=== PATIENT | female | born 1965 | race Caucasian/White ===

== ENCOUNTER 2025-01-20 12:19 | Outpatient (AMB) | payer OTHER, SELFPAY ==
--- NOTE | 2025-01-20 12:26 | A.OFFPC_ITS ---
Vital Signs 01/20/25 12:35 01/20/25 13:04 Height 5 ft 6 in Weight 191 lb 4 oz BMI 30.9 BP 102/68 Blood Pressure Location Lt brachial Position Sitting Respiration 12 Pulse 77 70 Pulse Source Pulse Oximeter Pulse Oximeter Temp 97.6 F Temp Source Oral Pulse Oximetry (%) 89 L 96 Oxygen Delivery Method Room Air Room Air Intake Visit Reasons: est care Intake Note: New patient to establish care Stock Hanger Required: No Allergies No Known Allergies Allergy (Verified 01/20/25 12:51) Medication List - Last Reconciled 01/20/25 by Sonia Enriquez, ART PROFESSOR- amlodipine-valsartan 5-160 mg 1 tab PO DAILY nebivolol 5 mg PO DAILY Tobacco use date assessed: 01/20/25 Dental Screening Dental Screen Date: 01/20/25 Did you have a dental visit in the last 12 months?: Yes Did you have a dental problem in the last 6 months where you did not have access to dental care?: No Was dental information given to patient?: Patient has dentist HPI HPI Comments History of Present Illness Details 59 y/o F with HTN, Iron def anemia, hx o f PE while in [place], IBD Surgery: sinus surgery Social: 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 Voice is hoarse. Productive cough. Has not used any medicine at home to help. Admits getting sick since coming back to [place] 8 mo ago. PE bilat, while living in [place]. Hospitalized for 1 month and d/c on warfarin. Told she did not need any further f/u HTN on meds, bp at goal. IBD w/ iron def anemia; active w/ GI. Having blood and mucous. Reports labs done recently at . Exam Awake alert NAD Sclera and conjunctiva clear bilat Nares clear drainage, turbinates within normal limits, no sinus tenderness with palpation bilat TM intact and clear bilat MMM, pharynx WNL + PND RRR LS CTAB No edemaBLE Plan: Med refills sent Ok to try anti histamine OTC or Mucinex to help w/ cough Flonase ok, too Records requested, will review once rec'd RTO 3 months to cont to est care after i review records. Total time spent caring for the patient today was 46 minutes. This includes time spent before the visit reviewing the chart, time spent during the visit, and time spent after the visit on documentation, reviewing laboratory results, diagnostic imaging, medications, performing a medically necessary evaluation, counseling on diagnoses, care coordination, ordering appropriate tests, ordering appropriate medications, review of tests performed by other providers, reporting test results with the patient, communication with other healthcare providers. [facility] Medical History (Updated 01/20/25 @ 15:30 by VICKI Marcus) IBS (irritable bowel syndrome) Pulmonary embolism (~2017) Surgical History (Updated 01/20/25 @ 12:57 by VICKI Marcus) History of colonoscopy (~2024) Family History (Updated 01/20/25 @ 13:22 by Sunil Acosta MA) Mother Asthma Father HTN (hypertension) Diabetes Maternal Grandmother HTN (hypertension) Paternal Grandmother Diabetes Maternal Grandfather Diabetes Social History (Updated 01/20/25 @ 12:34 by Sunil Acosta MA) Household Members: Spouse and Children Both parents involved: No Caregiver staying overnight: No Housing: House Are you a primary health care law specialist to a significant other at home: No Do you presently have visiting nurse or other home services: No 75 years or older and lives alone: No Alcohol intake: never Patient Tobacco Use Status: Never used Tobacco e-Cigarette/Vaping Use: Never Used Second Hand Smoke Exposure: No service: No Current occupational status: unemployed Cognitive needs: No Hearing needs: No Vision needs: Yes (wear glasses) Questionnaire PHQ-9 Over the last 2 weeks, how often have you been bothered by any of the following problems? 1. Little interest or pleasure in doing things: not at all 2. Feeling down, depressed, or hopeless: not at all 3. Trouble falling or staying asleep, or sleeping too much: several days 4. Feeling tired or having little energy: several days 5. Poor appetite or overeating: not at all 6. Feeling bad about yourself - or that you are a failure or have let yourself or your family down: not at all 7. Trouble concentrating on things, such as reading the newspaper or watching television: not at all 8. Moving or speaking so slowly that other people could have noticed. Or the opposite - being so fidgety or restless that you have been moving around a lot more than usual: not at all 9. Thoughts that you would be better off or of hurting yourself in some way: not at all Total score: 2 Depression Screening Interpretation: Negative Depression Screening Done: Yes 61502 - PHQ-9 Billing: Yes Source: Developed by Drs. Donald Islas, India Santiago, Joseluis Breaux and colleagues, with an educational jennifer from [employer]. Thrive Questionnaire Date Thrive assessed: 01/20/25 I am a: Patient What is your living situation today?: I have a steady place to live Within the past 12 months, did the food you bought not last and you didn't have the money to get more?: Never true Within the past 12 months, did you worry whether your food would run out before you got money to buy more?: Never true Do you have trouble paying for medicines?: No Do you have trouble getting transportation to medical appointments?: No Do you have trouble paying your heating and electricity bill?: No Do you have trouble taking care of your child, family member or friend?: No Do you have trouble with day-to-day activities such as bathing, preparing meals, shopping, managing finances, etc.?: No Are you currently unemployed and looking for a job?: No Are you interested in more education?: No Please select the resources that you would like help with: None Currently or been in a relationship where the following occur: No concerns reported THRIVE Score: 0 AUDIT C Alcohol Use Questionnaire (AUDIT-C) 1. How often do you have a drink containing alcohol?: Never 3. How often do you have six or more drinks on one occasion?: Never Total Score: 0 Score Reviewed/Action Taken: Yes KATE-7 AMB Questionnaire KATE-7 Date KATE - 7 assessed: 01/20/25 Feeling nervous, anxious, or on edge: 1 = Several days Not being able to stop or control worryin = Not at all Worrying too much about different things: 0 = Not at all Trouble relaxin = Not at all Being so restless that it is hard to sit still: 0 = Not at all Becoming easily annoyed or irritable: 0 = Not at all Feeling afraid as if something awful might happen: 0 = Not at all Total KATE-7 score (0-4 normal; 5-9 mild; 10-14 moderate; 15-21 severe): 1 Source: Developed by Drs. Donald Islas, India Santiago, Joseluis Breaux and colleagues, with an educational jennifer from [employer]. KATE-7 Assessment Billing KATE-7 Assessment Tool: KATE-7 Assessment 45349 Physical exam (Primary Care) Vital Signs: Last Vital Signs Temp 97.6 F 01/20/25 12:35 Pulse 70 01/20/25 13:04 Resp 12 01/20/25 12:35 BP 102/68 01/20/25 12:35 Pulse Ox 96 01/20/25 13:04 Oxygen Delivery Method Room Air 01/20/25 13:04 BMI result Body Mass Index 30.9 BMI Assessment/Plan discussion: High BMI High, discussed plan: lifestyle Tobacco/Smoking Status: Tobacco use Status Tobacco use date assessed 01/20/25 01/20/25 12:37 Patient Tobacco Use Status Never used Tobacco 01/20/25 12:37 e-Cigarette/Vaping Use Never Used 01/20/25 12:37 PHQ-9: PHQ-9 Score PHQ-9: Total score 2 01/20/25 15:26 Depression Screening Interpretation: Negative Thrive Assessment: Date of Thrive Assessment Date Thrive assessed 01/20/25 01/20/25 12:30 Currently or been in a relationship where the following occur: No concerns reported Coding Level of Care Code New Pt Level 4 (18158) Complex EM visit Add On G2211 Diagnoses Encounter to establish care Z76.89 History of pulmonary embolism Z86.711 Primary hypertension I10 Hypertension type: primary hypertension Iron deficiency anemia due to chronic blood loss D50.0 Iron deficiency anemia type: chronic blood loss Obesity (BMI 30-39.9) E66.9 Irritable bowel syndrome with both constipation and diarrhea K58.2 Irritable bowel syndrome type: with both diarrhea and constipation Viral URI with cough J06.9 Additional Codes KATE-7 Assessment Billing - KATE-7 Assessment Tool: KATE-7 Assessment 42761 ([id number]) PHQ-9 - 11931 - PHQ-9 Billing: Yes ([id number]) Assessment & Plan Assessment & Plan (1) Encounter to establish care: Code(s): Z76.89 - Persons encountering health services in other specified circumstances Category: Medical (2) History of pulmonary embolism: Code(s): Z86.711 - Personal history of pulmonary embolism Category: Medical (3) HTN (hypertension): Code(s): I10 - Essential (primary) hypertension Category: Medical Qualifiers: Hypertension type: primary hypertension Qualified Code(s): I10 - Essential (primary) hypertension (4) Iron deficiency anemia: Code(s): D50.9 - Iron deficiency anemia, unspecified Category: Medical Qualifiers: Iron deficiency anemia type: chronic blood loss Qualified Code(s): D 50.0 - Iron deficiency anemia secondary to blood loss (chronic) (5) Obesity (BMI 30-39.9): Code(s): E66.9 - Obesity, unspecified Category: Medical (6) IBS (irritable bowel syndrome): Code(s): K58.9 - Irritable bowel syndrome, unspecified Category: Medical Qualifiers: Irritable bowel syndrome type: with both diarrhea and constipation Qualified Code(s): K58.2 - Mixed irritable bowel syndrome (7) Viral URI with cough: Code(s): J06.9 - Acute upper respiratory infection, unspecified Plan . Medications: New nebivolol 5 mg PO DAILY 90 tabs 2RF ferrous sulfate 325 mg PO DAILY ascorbic acid (vitamin C) mg PO amlodipine-valsartan 5-160 mg 1 tab PO DAILY 90 tabs 2RF
[2025-01-20 12:35] VITALS: BP 102/68; PULSE 77; RESP 12; TEMP 36.4; O2SAT 89; BMI 30.9
[2025-01-20 13:04] VITALS: PULSE 70; O2SAT 96
--- OUTSIDE RECORDS SUMMARY | 2025-01-20 14:36 | XMS_ITS | Clinical Summary ---
Author Organization [place] [address] [address] [facility]ly [facility] Address [address] [facility] [place] [address] Phone Care Team Providers Care Process Line Operator Name Role Phone Physician, No Pcp Primary Care Provider Unavaila ble Allergies No known active allergies Medications nebivoloL (Bystolic) 5 mg tablet Take 1 tablet (5 mg total) by mouth 1 (one) time each day. 30 each 12/22/2024 5 Active amLODIPine-valsa rtan (Exforge) 5-160 mg per tablet Take 1 tablet by mouth 1 (one) time each day. 30 tablet 12/22/2024 5 Active ferrous sulfate 325 mg (65 mg iron) EC tablet Take 1 tablet (325 mg total) by mouth 1 (one) time each day with breakfast. Do not crush, chew, or split. 30 each 1 12/24/2024 6 Active Encounters Date Type Department Care Team Description 12/31/2024 Telephone Gastroenterology - [address] [phone] Lyubov Baez [place] 12/25/2024 2:40 PM EDT Consult Gastroenterology - [address] [phone] Raquel Jennings, FIRE HYDRANT OPERATOR Other iron deficiency anemia (Primary Dx); Diarrhea, unspecified type; Rectal bleeding 12/24/2024 Telephone Walk-In Clinic [facility] [address] [place] [phone] Jose Goddard PA Results 12/23/2024 1:30 PM EDT Clinic Lab Collection Walk-In Clinic - [address] [phone] Diarrhea, unspecified type; History of hypertension; Bright red blood per rectum 12/22/2024 4:15 PM EDT Office Visit Walk-In Clinic - [address] [phone] Jose Goddard PA Diarrhea, unspecified type (Primary Dx); History of hypertension; Bright red blood per rectum from Last 3 Months Social History Tobacco Use Types Packs/Day Years Used Date Smoking Tobacco: Never Assessed Comments Unknown Sex and Gender Information Value Date Recorded Sex Assigned at Female 12/24/2024 10:19 AM EDT Legal Sex Female 10:16 AM EDT Gender Identity Female 12/24/2024 10:19 AM EDT Sexual Orientation Straight 12/24/2024 10 :19 AM EDT Last Filed Vital Signs Vital Sign Reading Time Taken Comments Blood Pressure 118/78 12/22/2024 3:51 PM EDT Pulse 119 12/22/2024 3:51 PM EDT Temperature - - Respiratory Rate - - Oxygen Saturation 98% 12/22/2024 3:51 PM EDT Inhaled Oxygen Concentration - - Weight 83.9 kg (185 lb) 12/25/2024 2:40 PM EDT Height 167.6 cm (5' 6 ) 12/25/2024 2:40 PM EDT Body Mass Index 29.86 12/25/2024 2:40 PM EDT Plan of Treatment Upcoming Encounters Date Type Department Care Team (Late st Contact Info) Description 03/03/2025 9:00 AM EDT Appointment [facility] Endoscopy [address] [place] [phone] Tenzin Paula MD [address] [phone] 03/11/2025 9:20 AM EDT Office Visit Gastroenterology - 299 [facility] [address] [phone] Raquel Jennings, FIRE HYDRANT OPERATOR 299 [facility] [address] [place] [address] Health Maintenance Due Date Last Done Comments Breast Cancer Screening 1964 DTaP,Tdap,and Td Vaccines (1 - Tdap) 1983 Cervical Cancer Screening: P ap Smear 1985 Pneumococcal Vaccine: 50+ Ye ars (1 of 1 - PCV) 2014 Zoster Vaccines (1 of 2) 2014 Colorectal Cancer Screening: Colonoscopy 12/22/2024 Depression Screening 12/22/2024 HIV Screening 12/22/2024 Hepatitis C Screening 12/22/2024 Social Influencers of Health Screening 12/22/2024 RSV Immunization Adult Patie nts (1 - 1-dose 75+ series) 2039 COVID-19 Vaccine Completed 07/25/2024 Influenza Vaccine Completed 07/25/2024 HIB Vaccines Aged Out No longer eligi ble based on patient's age to complete this topic HPV Vaccines Aged Out No longer eligi ble based on patient's age to complete this topic Hepatitis A Vaccines Aged Out No long er eligible based on patient's age to complete this topic Hepatitis B Vaccines Aged Out No long er eligible based on patient's age to complete this topic IPV Vaccines Aged Out No longer eligi ble based on patient's age to complete this topic MMR Vaccines Aged Out No longer eligi ble based on patient's age to complete this topic Meningococcal ACWY Vaccine Aged Out N o longer eligible based on patient's age to complete this topic Meningococcal B Vaccine Aged Out No l onger eligible based on patient's age to complete this topic Pneumococcal Vaccine: Pediat rics (0 to 5 Years) and At-Risk Patients (6 to 64 Years) Aged Out No longer eligi ble based on patient's age to complete this topic RSV Immunization Patients Un noel 20 months Aged Out No longer eligible b ased on patient's age to complete this topic Varicella Vaccines Aged Out No longer eligible based on patient's age to complete this topic Procedures Procedure Name Priority Date/Time Associated Diagnosis Comments FERRITIN Routine 12/29/2024 7:50 AM EDT Diarrhea, unspecified type Iron refractory iron deficiency anemia IRON AND TIBC Routine 12/29/2024 7:50 AM EDT Diarrhea, unspecified type Iron refractory iron deficiency anemia C-REACTIVE PROTEIN Routine 12/29/2024 7: 50 AM EDT Diarrhea, unspecified type Other iron deficiency anemia Rectal bleeding VITAMIN B12 AND FOLATE Routine 7:50 AM EDT Diarrhea, unspecified type Other iron deficiency anemia Rectal bleeding CALPROTECTIN, STOOL Routine 12/29/2024 7 :49 AM EDT Diarrhea, unspecified type Other iron deficiency anemia Rectal bleeding CLOSTRIDIUM DIFFICILE TOXIN Routine 12/29/2024 7:49 AM EDT Diarrhea, unspecified type Other iron deficiency anemia Rectal bleeding GASTROINTESTINAL PATHOGENS BY PCR Routine 12/29/2024 7:49 AM EDT Diarrhea, unspecified type Other iron deficiency anemia Rectal bleeding CBC WITH AUTO DIFFERENTIAL Routine 12/25/2024 3:26 PM EDT Diarrhea, unspecified type SEDIMENTATION RATE Routine 12/25/2024 3 :26 PM EDT Diarrhea, unspecified type COMPREHENSIVE METABOLIC PANEL Routine 12/25/2024 3:26 PM EDT Diarrhea, unspecified type CBC AND DIFFERENTIAL Routine 12/25/2024 3:26 PM EDT Diarrhea, unspecified type CBC WITH AUTO DIFFERENTIAL Routine 12/23/2024 1:34 PM EDT Diarrhea, unspecified type History of hypertension Bright red blood per rectum SEDIMENTATION RATE Routine 12/23/2024 1: 34 PM EDT Diarrhea, unspecified type History of hypertension Bright red blood per rectum CBC AND DIFFERENTIAL Routine 12/23/2024 1:34 PM EDT Diarrhea, unspecified type History of hypertension Bright red blood per rectum COMPREHENSIVE METABOLIC PANEL Routine 12/23/2024 1:34 PM EDT Diarrhea, unspecified type History of hypertension Bright red blood per rectum from Last 3 Months Results * (ABNORMAL) Vitamin B12 and folate (12/29/2024 7:50 AM EDT) [facility] Vitamin B-12 243(L) 250 - 900 pcg/mL LAB CHEMISTRY METHOD 12/29/2024 11:34 AM EDT [facility] Folate 8.4 2.8 - 17.0 ng/ml LAB CHEMISTRY METHOD 12/29/2024 11:34 AM EDT [facility] Blood Venous blood specimen / Unknown Venipuncture / Unknown 12/29/2024 7:50 AM EDT 12/29/2024 10:19 AM EDT Raquel Jennings NP LAB BLOOD ORDERABLES Final Re sult [facility] [address] [place] [address], [place] [phone] * (ABNORMAL) Iron and TIBC (12/29/2024 7:50 AM EDT) [facility] Iron 21(L) 40 - 150 mcg/dL LAB CHEMISTRY METHOD 12/29/2024 11:34 AM EDT [facility] TIBC 384 250 - 450 mcg/dL LAB CHEMISTRY METHOD 12/29/2024 11:34 AM EDT [facility] Iron Saturation 5(L) 15 - 50 % LAB CHEMISTRY METHOD 12/29/2024 11:34 AM EDT [facility] Blood Venous blood specimen / Unknown Venipuncture / Unknown 12/29/2024 7:50 AM EDT 12/29/2024 10:19 AM EDT Raquel Jennings NP LAB BLOOD ORDERABLES Final Re sult [facility] [address] [place] [address], [place] [phone] * (ABNORMAL) C-reactive protein (12/29/2024 7:50 AM EDT) [facility] C-Reactive Protein 1.37(H) <=0.50 mg/dL LAB CHEMISTRY METHOD 12/29/2024 11:10 AM EDT [facility] Blood Venous blood specimen / Unknown Venipuncture / Unknown 12/29/2024 7:50 AM EDT 12/29/2024 10:19 AM EDT us Raquel Jennings NP LAB BLOOD ORDERABLES Final Re sult Performing Organization Address City/[facility] Co de Phone Number [facility] [address] [place] [address], [place] [phone] * Ferritin (12/29/2024 7:50 AM EDT) [facility] Ferritin 8 8 - 252 ng/mL LAB CHEMISTRY METHOD 12/29/2024 11:35 AM EDT [facility] Blood Venous blood specimen / Unknown Venipuncture / Unknown 12/29/2024 7:50 AM EDT 12/29/2024 10:19 AM EDT us Raquel Jennings NP LAB BLOOD ORDERABLES Final Re sult [facility] [address] [place] [address], [place] [phone] * Gastrointestinal pathogens molecular study (12/29/2024 7:49 AM EDT) [facility] Campylobacter Detection by PCR Not Detected Not Detected LAB MICROBIOLOGY METHOD 5 11:58 AM EDT [facility] Plesiomonas shigelloides Detection by PCR Not Detected Not Detected LAB MICROBIOLOGY METHOD 11:58 AM EDT [facility] Salmonella Detection by PCR Not Detected Not Detected LAB MICROBIOLOGY METHOD 5 11:58 AM EDT [facility] Vibrio Detection by PCR Not Detected Not Detected LAB MICROBIOLOGY METHOD 5 11:58 AM EDT [facility] Vibrio cholerae Detection by PCR Not Detected Not Detected LAB MICROBIOLOGY METHOD 5 11:58 AM EDT [facility] Yersinia enterocolitica Detection by PCR Not Detected Not Detected LAB MICROBIOLOGY METHOD 5 11:58 AM EDT [facility] Enteroaggregative E coli EAEC Detection by PCR Not Detected Not Detected LAB MICROBIOLOGY METHOD 5 11:58 AM EDT [facility] Enteropathogenic E coli EPEC Detection Not Detected Not Detected LAB MICROBIOLOGY METHOD 5 11:58 AM EDT [facility] Enterotoxigenic E coli ETEC LTST Detection Not Detected Not Detected LAB MICROBIOLOGY METHOD 5 11:58 AM EDT [facility] Shiga-like toxin producing E coli STEC STX1 STX2 Det Not Detected Not Detected LAB MICROBIOLOGY METHOD 5 11:58 AM EDT [facility] Shigella Enteroinvasive E coli EIEC Detection Not Detected Not Detected LAB MICROBIOLOGY METHOD 5 11:58 AM EDT [facility] Cryptosporidium Detection by PCR Not Detected Not Detected LAB MICROBIOLOGY METHOD 5 11:58 AM EDT [facility] Cyclospora cayetanensis Detection by PCR Not Detected Not Detected LAB MICROBIOLOGY METHOD 5 11:58 AM EDT [facility] Entamoeba histolytica Detection by PCR Not Detected Not Detected LAB MICROBIOLOGY METHOD 5 11:58 AM EDT [facility] Giardia lamblia Detection by PCR Not Detected Not Detected LAB MICROBIOLOGY METHOD 5 11:58 AM EDT [facility] Adenovirus F 40 41 Detection by PCR Not Detected Not Detected LAB MICROBIOLOGY METHOD 5 11:58 AM EDT [facility] Astrovirus Detection by PCR Not Detected Not Detected LAB MICROBIOLOGY METHOD 5 11:58 AM EDT [facility] Norovirus GI GII Detection by PCR Not Detected Not Detected LAB MICROBIOLOGY METHOD 5 11:58 AM EDT [facility] Sapovirus Detection by PCR Not Detected Not Detected LAB MICROBIOLOGY METHOD 5 11:58 AM EDT [facility] Rotavirus A Detection by PCR Not Detected Not Detected LAB MICROBIOLOGY METHOD 5 11:58 AM EDT [facility] Stool Rectum structure / Unknown Non-blood Collection / Unknown 12/29/2024 7:49 AM EDT 12/29/2024 10:18 AM EDT Narrative [facility] - 12/29/2024 11:58 AM EDT PCR testing is much more sensitive than traditional techniques and allows for the detection of low numbers of stool pathogens. The clinical correlation of PCR results with the need for treatment and clinical outcomes has not been established. Therefore the results of PCR testing for stool pathogens must be taken into clinical context when making treatment decisions. This is a diagnostic test only, repeat testing for cure is not advised. You may consider infectious disease consult for additional guidance. ??Testing Performed by MULT[employer] PCR Raquel Jennings NP LAB MICROBIOLOGY - GENERAL OR DERABLES Final Result [facility] [address] [place] [address], * (ABNORMAL) Calprotectin, stool (12/29/2024 7:49 AM EDT) Calprotectin, Fecal 65.2(H) <50 mcg/g 12/31/2024 1:25 PM EDT [facility] Comment: <50 mcg/g ?Normal 50 - 120 mcg/g ?? Borderline >120 mcg/g ? Abnormal Borderline results suggest repeat testing in 4 to 6 weeks. Test performed at [facility], [address] , [place], [place] ??[address] ? [phone] Danika Harris MD, PhD - Tool Design Checker Stool Rectum structure / Unknown Non-blood Collection / Unknown 12/29/2024 7:49 AM EDT 12/29/2024 10:18 AM EDT Raquel Jennings NP LAB BODY FLUIDS AND STOOLS OR DERABLES Edited Result - Final [facility] [address] [place] [address] * Clostridium difficile toxin (12/29/2024 7:49 AM EDT) Pathologist [facility] Clostridium difficile GDH Antigen Negative Negative 12/29/2024 11:06 AM EDT [facility] C difficile Toxins A+B, EIA Negative Negative 12/29/2024 11:06 AM EDT [facility] Comment:NEGATIVE FOR TOXIN P RODUCING CLOSTRIDIOIDES DIFFICILE, NO ADDITIONAL TESTING IS NECESSARY. Stool Rectum structure / Unknown Non-blood Collection / Unknown 12/29/2024 7:49 AM EDT 12/29/2024 10:18 AM EDT Raquel Jennings NP LAB MICROBIOLOGY - GENERAL OR DERABLES Final Result [facility] [address] [place] [address], [place] [phone] * (ABNORMAL) CBC auto differential (12/25/2024 3:26 PM EDT) Only the most recent of2 resultswithin the time period is included. WBC 7.8 4.8 - 10.8 K/mcL LAB HEMETOLOGY METHOD 12/25/2024 3:54 PM EDT [facility] RBC 5.00(H) 3.80 - 4.80 M/mcL LAB HEMETOLOGY METHOD [facility]24 [facility] Hemoglobin 9.8(L) 11.5 - 16.0 g/dL LAB HEMETOLOGY METHOD 12/25/2024 3:54 PM T [facility] Hematocrit 34.9(L) 35.0 - 47.0 % LAB HEMETOLOGY METHOD 12/25/2024 3:54 PM EDT [facility] MCV 70.5(L) 79.0 - 98.0 FL LAB HEMETOLOGY METHOD 12/25/2024 3:54 PM [facility] MCH 19.8(L) 27.0 - 32.0 pcg LAB HEMETOLOGY METHOD 12/25/2024 3:54 PM [facility] MCHC 28.1(L) 32.0 - 37.0 g/dL LAB HEMETOLOGY METHOD 12/25/2024 3:54 PM [facility] RDW 19.4(H) 11.0 - 15.0 % LAB HEMETOLOGY METHOD 12/25/2024 3:54 PM [facility] Platelets 318 130 - 400 K/mcL LAB HEMETOLOGY METHOD 12/25/2024 3:54 [facility] MPV 10.1 7.0 - 11.0 FL LAB HEMETOLOGY METHOD 12/25/2024 3:54 [facility] NRBC 0.0 <1.0 % LAB HEMETOLOGY METHOD 12/25/2024 3:54 PM [facility] NRBC Absolute 0.00 <0.10 K/mcL LAB HEMETOLOGY METHOD 12/25/2024 3:54 [facility] Neutrophils Relative 80.1 % LAB HEMETOLOGY METHOD 12/25/2024 3:54 PM EDT [facility] Lymphocytes Relative 10.9 % LAB HEMETOLOGY METHOD 12/25/2024 3:54 PM [facility] Monocytes Relative 7.9 % LAB HEMETOLOGY METHOD 12/25/2024 3:54 PM [facility] Eosinophils Relative 0.4 % LAB HEMETOLOGY METHOD 12/25/2024 3:54 PM T [facility] Basophils Relative 0.4 % LAB HEMETOLOGY METHOD 12/25/2024 3:54 PM [facility] Immature Granulocytes Relative 0.3 % LAB HEMETOLOGY METHOD 12/25/2024 3:54 PM [facility] Neutrophils Absolute 6.28 1.50 - 7.00 K/mcL LAB HEMETOLOGY METHOD 12/25/2024 3:54 PM [facility] Lymphocytes Absolute 0.85(L) 1.00 - 5.00 K/mcL LAB HEMETOLOGY METHOD 12/25/2024 3:54 PM [facility] Monocytes Absolute 0.62 0.20 - 1.00 K/mcL LAB HEMETOLOGY METHOD 12/25/2024 3:54 PM [facility] Eosinophils Absolute 0.03 0.00 - 0.50 K/mcL LAB HEMETOLOGY METHOD 12/25/2024 3:54 PM T [facility] Basophils Absolute 0.03 0.00 - 0.20 K/mcL LAB HEMETOLOGY METHOD 12/25/2024 3:54 PM [facility] Immature Granulocytes Absolute 0.02 0.00 - 0.03 K/mcL LAB HEMETOLOGY METHOD 12/25/2024 3:54 PM [facility] Blood Venous blood specimen / Unknown Venipuncture / Unknown 12/25/2024 3:26 PM EDT 12/25/2024 3:42 PM EDT Jose YOUNGER LAB BLOOD ORDERABLES Final Result Performing Organization Address [facility]/ZIP Co de Phone Number [facility] [address] [place] [address], [place] [phone] * (ABNORMAL) Sedimentation rate (12/25/2024 3:26 PM EDT) Only the most recent of2 resultswithin the time period is included. Pathologist [facility] Sed Rate 47(H) 0 - 30 mm/hr LAB HEMETOLOGY METHOD 12/25/2024 4:03 PM EDT [facility] Blood Venous blood specimen / Unknown Venipuncture / Unknown 12/25/2024 3:26 PM EDT 12/25/2024 3:42 PM EDT Jose YOUNGER LAB BLOOD ORDERABLES Final Result Performing Organization Address [facility] de Phone Number [facility] [address] [place] [address], [place] [phone] * (ABNORMAL) Comprehensive metabolic panel (12/25/2024 3:26 PM EDT) Only the most recent of2 resultswithin the time period is included. Sodium 139 133 - 145 mmol/L LAB CHEMISTRY METHOD 12/25/2024 4:21 PM EDT [facility] Potassium 3.8 3.5 - 5.5 mmol/L LAB CHEMISTRY METHOD 12/25/2024 4:21 PM EDT [facility] Chloride 105 96 - 110 mmol/L LAB CHEMISTRY METHOD 12/25/2024 4:21 PM EDT [facility] CO2 28 21 - 32 mmol/L LAB CHEMISTRY METHOD 12/25/2024 4:21 PM EDT [facility] Anion Gap 6 3 - 11 LAB CHEMISTRY METHOD 12/25/2024 4:21 PM [facility] Glucose 119(H) 70 - 100 mg/dL LAB CHEMISTRY METHOD 12/25/2024 4:21 PM [facility] BUN 8 5 - 25 mg/dL LAB CHEMISTRY METHOD 12/25/2024 4:21 PM [facility] Creatinine 0.87 0.50 - 1.10 mg/dL LAB CHEMISTRY METHOD 12/25/2024 4:21 PM [facility] eGFR 76 >=60 mL/min/1. 73m2 LAB CHEMISTRY METHOD 12/25/2024 4:21 PM [facility] Comment:Calculation based on the??Chronic Kidney Disease Epidemiology Collaboration (CKD-EPI) equation refit??without adjustment for race. BUN/Creatinine Ratio 9.2 LAB CHEMISTRY METHOD 12/25/2024 4:21 PM [facility] Calcium 10.2 8.5 - 10.5 mg/dL LAB CHEMISTRY METHOD 12/25/2024 4:21 PM [facility] AST (SGOT) 13 10 - 42 unit/L LAB CHEMISTRY METHOD 12/25/2024 4:21 PM [facility] ALT (SGPT) 18 10 - 60 unit/L LAB CHEMISTRY METHOD 12/25/2024 4:21 PM [facility] Alkaline Phosphatase 90 42 - 121 unit/L LAB CHEMISTRY METHOD 12/25/2024 4:21 PM [facility] Total Protein 8.4(H) 6.0 - 8.0 g/dL LAB CHEMISTRY METHOD 12/25/2024 4:21 PM [facility] Albumin 4.2 3.2 - 5.0 g/dL LAB CHEMISTRY METHOD 12/25/2024 4:21 PM [facility] Total Bilirubin 0.7 0.0 - 1.4 mg/dL LAB CHEMISTRY METHOD 12/25/2024 4:21 PM [facility] Blood Venous blood specimen / Unknown Venipuncture / Unknown 12/25/2024 3:26 PM EDT 12/25/2024 3:42 PM EDT Jose YOUNGER LAB BLOOD ORDERABLES Final Result LIZET DARLING [facility] ([facility]) [facility] [address] [place] [address], from Last 3 Months Insurance [facility] Care Teams Process Line Operator Relationship Specialty Start Date End Date Physician, No Pcp PCP - General 12/22/24
== END 2025-01-20 13:10 | disposition home or self-care (01) ==
LOC: HO.HMCFM 12:20
PROVIDERS: PCP Nurse Practitioner Family; Visit Provider Nurse Practitioner Family
DX: I10 Essential (primary) hypertension (principal); Z76.89 Persons encountering health services in other specified circumstances; E66.9 Obesity, unspecified; Z68.30 Body mass index [BMI] 30.0-30.9, adult; Z86.711 Personal history of pulmonary embolism; D50.0 Iron deficiency anemia secondary to blood loss (chronic); K58.2 Mixed irritable bowel syndrome; J06.9 Acute upper respiratory infection, unspecified

== ENCOUNTER → 2025-01-20 12:19 | Outpatient (BNVA) | payer OTHER, SELFPAY | PROVIDERS: PCP Nurse Practitioner Family; Visit Provider Nurse Practitioner Family | DX: Z76.89 Persons encountering health services in other specified circumstances (principal); I10 Essential (primary) hypertension; D50.0 Iron deficiency anemia secondary to blood loss (chronic); E66.9 Obesity, unspecified; Z68.30 Body mass index [BMI] 30.0-30.9, adult; K58.2 Mixed irritable bowel syndrome; J06.9 Acute upper respiratory infection, unspecified; Z86.711 Personal history of pulmonary embolism | CPT/HCPCS: 96127 ==

== ENCOUNTER 2025-04-19 09:06 | Outpatient (AMB) | payer OTHER, SELFPAY ==
--- NOTE | 2025-04-19 09:08 | A.OFFPC_ITS ---
Vital Signs 04/19/25 09:15 Height 5 ft 6 in Weight 197 lb 2 oz BMI 31.8 BP 105/70 Blood Pressure Location Rt brachial Position Sitting Respiration 12 Pulse 62 Pulse Source Pulse Oximeter Temp 97.1 F Temp Source Oral Pulse Oximetry (%) 94 Oxygen Delivery Method Room Air Intake Visit Reasons: 3 months 30 min routine fu/cont to est care Intake Note: Routine follow up Pulley Man Required: No Allergies No Known Allergies Allergy (Verified 04/19/25 09:12) Medication List - Last Reconciled 04/19/25 by Sonia Enriquez, [facility] amlodipine-valsartan 5-160 mg 1 tab PO DAILY ascorbic acid (vitamin C) mg PO ferrous sulfate 325 mg PO DAILY nebivolol 5 mg PO DAILY Tobacco use date assessed: 04/19/25 Dental Screening Dental Screen Date: 04/19/25 Did you have a dental visit in the last 12 months?: Yes Did you have a dental problem in the last 6 months where you did not have access to dental care?: No Was dental information given to patient?: Patient has dentist HPI HPI Comments History of Present Illness Details 59 y/o F with HTN, Iron def anemia, hx o f PE while in [place], IBD , obesity, colon polyp Surgery: sinus surgery Social: 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 - Maintained on amlodipine-valsartan 5-1 60 mg and nebivolol 5 mg for hypertension management. - Anemia management with a daily regime of ferrous sulfate 325 mg. - Recent history of colonic polyp remova l, one being 40 mm, confirmed benign. - Experienced significant bleeding and d iarrhea attributable to large colonic polyps. - Post-removal of polyps resulted in the resolution of symptoms and stabilization of anemia. - Symptomatic relief achieved on gluten- and dairy-free diet. - Hospitalized at [facility] s/p polyp remova l for bleeding, this was February 2025; i do not have these records. I have requested them 3 times w/o any success. PT reports she went for repeat CBC last week and was told results are normal. Health Maintenance - Annual mammogram and bone density scan pending. - Tetanus vaccine and pertussis vaccine proposed and agreed upon during the visit. - Recommendation for Pap smear follow-up . - Monitoring of hypertension and anemia through frequent checks and ongoing medication refills. Review of Systems - Gastrointestinal: Reports past massive diarrhea, now resolved. Denies current gastrointestinal symptoms. - Hematologic: Reports past anemia and c oncerns related to polyp-related bleeding, currently reports normal hemoglobin levels. - Cardiovascular: Denies current hyperte nsive symptoms but recounts past low blood pressure episodes during hospitalization. - Respiratory: Denies respiratory sympto ms. - Allergic/Immunologic: Denies recent or known allergic reactions. Physical Exam General: Well developed, well nourished, in no acute distress. Appears stated age. Head: Normocephalic, atraumatic. Eyes: Pupils are equal, round and reactive to light and accommodation. Conjunctivae are clear. Vision grossly normal. Ears: TMs clear AU, EACS WNL Nose: Patent, without discharge. Neck: Supple, no adenopathy or thyromegaly. Breast: Edu on SBE Lungs: Clear to auscultation bilaterally. No rales, rhonchi or wheeze noted. Good air flow in all cho. Heart: Regular rate and rhythm. No murmurs, click, rubs or gallops are noted. Abdomen: Bowel sounds present in all quadrants. The abdomen is soft, nontender, with no masses or organomegaly noted. No hernias are noted. : Deferred. Reviewed recommendations for routine ACADEMIC ADVISER Pulses: Peripheral pulses are equal and palpable bilaterally. Extremities: No clubbing, cyanosis nor edema is noted. Neurologic: Gait and station normal. Cranial Nerves 2-12 intact. Motor strength grossly symmetrical and intact. No sensory loss. Balance normal. Skin: No rashes, ulcers, or lesions noted. Turgor is good. Skin color is good. Hair and nails are without abnormalities. Psych: Normal eye contact, affect and mood appropriate, and normal interactions. Patient is alert and appropriate to context. Discussion Notes I discussed with the patient her recent health developments, emphasizing the normal results of her anemia and the benign nature of her colonic polyps. We reviewed her regimen for hypertension, confirming current management and refills are appropriate. I emphasized the importance of gluten- and dairy-free diet maintenance and urged her to adhere to this dietary regimen to prevent symptom recurrence. Additionally, we discussed completion of screening tests, including bone density, mammography, and Pap smear, to ensure comprehensive health surveillance. I outlined the procedure for receiving her tetanus and pertussis vaccinations today and the need for periodic booster shots. We also discussed facilitating the transfer of her medical records from [place] facilities. Assessment and Plan 1. Essential Hypertension - Maintain antihypertensive regimen. - Monitor home blood pressure. 2. Anemia - Normalized hemoglobin levels. - Continue ferrous sulfate. - Periodic blood tests. 3. Obesity - Maintain gluten- and dairy-free diet. - Continue weight management. 4. History of Colonic Polyps - Benign polyps confirmed. - Follow-up colonoscopy in September. Mammo, DEXA ordered ACADEMIC ADVISER referral for pap placed Tdap admin today Repeat labs in 6 mo Patient Instructions - Continue taking your medications as pr escribed. - Monitor your blood pressure regularly at home. - Follow a gluten- and dairy-free diet a s recommended. - Plan for upcoming colonoscopy in . - Attend upcoming mammogram and bone den sity appointments. RTO 6 MO WITH REPEAT LABS TO FU ON HTN Consent Patient was informed and verbally consented to the use of an ambient scribe for clinic note documentation during this visit. An additional 30 minutes was spent addressing the problem(s) noted at todays visit. This includes time spent before the visit reviewing the chart, time spent during the visit, and time spent after the visit on documentation reviewing laboratory results, diagnostic imaging, medications, performing a medically necessary evaluation, counseling on diagnoses, care coordination, ordering appropriate tests, ordering appropriate medications, review of tests performed by other providers, reporting test results with the patient, communication with other healthcare providers. [facility] Medical History (Updated 04/19/25 @ 09:37 by TYESHA Marcus-DIANA) IBS (irritable bowel syndrome) Pulmonary embolism (~2017) Surgical History (Updated 01/20/25 @ 12:57 by TYESHA Marcus-DIANA) History of colonoscopy (~2024) Family History (Updated 01/20/25 @ 13:22 by Sunil Acosta MA) Mother Asthma Father HTN (hypertension) Diabetes Maternal Grandmother HTN (hypertension) Paternal Grandmother Diabetes Maternal Grandfather Diabetes Social History (Updated 01/20/25 @ 12:34 by Sunil Acosta MA) Household Members: Spouse and Children Both parents involved: No Caregiver staying overnight: No Housing: House Are you a primary child day care teacher to a significant other at home: No Do you presently have visiting nurse or other home services: No 75 years or older and lives alone: No Alcohol intake: never Patient Tobacco Use Status: Never used Tobacco e-Cigarette/Vaping Use: Never Used Second Hand Smoke Exposure: No service: No Current occupational status: unemployed Cognitive needs: No Hearing needs: No Vision needs: Yes (wear glasses) Questionnaire Thrive Questionnaire Date Thrive assessed: 01/20/25 I am a: Patient What is your living situation today?: I have a steady place to live Within the past 12 months, did the food you bought not last and you didn't have the money to get more?: Never true Within the past 12 months, did you worry whether your food would run out before you got money to buy more?: Never true Do you have trouble paying for medicines?: No Do you have trouble getting transportation to medical appointments?: No Do you have trouble paying your heating and electricity bill?: No Do you have trouble taking care of your child, family member or friend?: No Do you have trouble with day-to-day activities such as bathing, preparing meals, shopping, managing finances, etc.?: No Are you currently unemployed and looking for a job?: No Are you interested in more education?: No Please select the resources that you would like help with: None Currently or been in a relationship where the following occur: No concerns reported THRIVE Score: 0 AUDIT C Alcohol Use Questionnaire (AUDIT-C) 3. How often do you have six or more drinks on one occasion?: Never Total Score: 0 KATE-7 AMB Questionnaire KATE-7 Date KATE - 7 assessed: 01/20/25 Source: Developed by Drs. Donald Islas, India Santiago, Joseluis Breaux and colleagues, with an educational jennifer from [employer]. Physical exam (Primary Care) Vital Signs: Last Vital Signs Temp 97.1 F 04/19/25 09:15 Pulse 62 04/19/25 09:15 Resp 12 04/19/25 09:15 BP 105/70 04/19/25 09:15 Pulse Ox 94 04/19/25 09:15 Oxygen Delivery Method Room Air 04/19/25 09:15 BMI result Body Mass Index 31.8 BMI Assessment/Plan discussion: High BMI High, discussed plan: lifestyle Tobacco/Smoking Status: Tobacco use Status Tobacco use date assessed 04/19/25 04/19/25 09:09 Patient Tobacco Use Status Never used Tobacco 04/19/25 09:09 e-Cigarette/Vaping Use Never Used 04/19/25 09:09 Thrive Assessment: Date of Thrive Assessment Date Thrive assessed 01/20/25 04/19/25 09:09 Currently or been in a relationship where the following occur: No concerns reported Immunizations Boostrix Tdap 2.5 Lf unit-8 mcg-5 Lf/0.5 mL intramuscular syringe Performing Provider: VICKI Marcus Performing Location: [facility] Administered by: Sunil Acosta MA on 04/19/25 09:40 Dose Route Admin Location Dispensed Lot Number Expiration Date [facility] Commercial Litigation Attorney 0.5 mL IM Right Deltoid 0.5 mL [id number] 07/27/27 07927-102-41 [employer] Total Dispensed Waste 0.5 mL 0 % VIS Given Date VIS Provided VIS Publication Date 04/19/25 Single Vaccine 21 Eligibility Eligibility Date Funding Source Not [facility] Eligible 04/19/25 Private Coding Level of Care Code Est Pt Level 4 (52084) Est Pt Prev Care 40-64y(96579) Diagnoses Encounter for general adult medical examination with abnormal findings Z00.01 Primary hypertension I10 Hypertension type: primary hypertension Iron deficiency anemia due to chronic blood loss D50.0 Iron deficiency anemia type: chronic blood loss Obesity (BMI 30-39.9) E66.9 Benign colon polyp K63.5 History of GI bleed Z87.19 Menopause Z78.0 Laboratory exam ordered as part of routine general medical examination Z00.00 Need for Tdap vaccination Z23 Assessment & Plan Assessment & Plan (1) Encounter for general adult medical examination with abnormal findings: Onset Date: ~04/19/25 Code(s): Z00.01 - Encounter for general adult medical examination with abnormal findings Category: Medical (2) HTN (hypertension): Code(s): I10 - Essential (primary) hypertension Category: Medical Qualifiers: Hypertension type: primary hypertension Qualified Code(s): I10 - Essential (primary) hypertension (3) Iron deficiency anemia: Code(s): D50.9 - Iron deficiency anemia, unspecified Category: Medical Qualifiers: Iron deficiency anemia type: chronic blood loss Qualified Code(s): D50.0 - Iron deficiency anemia secondary to blood loss (chronic) (4) Obesity (BMI 30-39.9): Code(s): E66.9 - Obesity, unspecified Category: Medical (5) Benign colon polyp: Onset Date: 02/2025 Code(s): K63.5 - Polyp of colon Category: Medical (6) History of GI bleed: Onset Date: ~02/2025 Comment: s/p polypectomy @ [facility] Code(s): Z87.19 - Personal history of other diseases of the digestive system Category: Medical (7) Menopause: Code(s): Z78.0 - Asymptomatic menopausal state Category: Medical (8) Laboratory exam ordered as part of routine general medical examination: Code(s): Z00.00 - Encounter for general adult medical examination without abnormal findings Category: Medical (9) Need for Tdap vaccination: Code(s): Z23 - Encounter for immunization Category: Medical Plan . Orders: Orders MM tomosynthesis screening BI Today Z12.31 - Encounter for screening mammogram for malignant neoplasm of breast XR DEXA axial skeleton Today Z13.820 - Encounter for screening for osteoporosis, Z78.0 - Asymptomatic menopausal state Comprehensive Met. Panel 6 Months I10 - Essential (primary) hypertension, Z00.00 - Encounter for general adult medical examination without abnormal findings Complete Blood Count no Diff 6 Months I10 - Essential (primary) hypertension, Z00.00 - Encounter for general adult medical examination without abnormal fin dings Hemoglobin A1c 6 Months I10 - Essential (primary) hypertension, Z00.00 - Encounter for general adult medical examination without abnormal findings Lipid Panel 6 Months I10 - Essential (primary) hypertension, Z00.00 - Encounter for general adult medical examination without abnormal findings Microalbumin, Random (w Creat) 6 Months I10 - Essential (primary) hypertension, Z00.00 - Encounter for general adult medical examination without abnormal findings Vitamin B12 and Folate 6 Months I10 - Essential (primary) hypertension, Z00.00 - Encounter for general adult medical examination without abnormal findings TDaP Immunization Today Z23 - Encounter for immunization TSH reflex Free T4 6 Months I10 - Essential (primary) hypertension, Z00.00 - Encounter for general adult medical examination without abnormal findings Vitamin D 25-OH Total 6 Months I10 - Essential (primary) hypertension, Z00.00 - Encounter for general adult medical examination without abnormal findings Referrals COMPUTER PUBLISHER Referral Z12.4 - Encounter for screening for malignant neoplasm of cervix Patient Instructions: Health screenings for women You should visit your health care provider from time to time, even if you are healthy. The purpose of these visits is to: Screen for medical issues Assess your risk for future medical problems Encourage a healthy lifestyle Update vaccinations and other preventive care services Help you get to know your provider in case of an illness Information Even if you feel fine, you should still see your provider for regular checkups. These visits can help you avoid problems in the future. For example, the only way to find out if you have high blood pressure is to have it checked regularly. High blood sugar and high cholesterol levels also may not have any symptoms in the early stages. A simple blood test can check for these conditions. There are specific times when you should see your provider or receive specific health screenings. The [place] Preventive Services Task Force publishes a list of recommended screenings. Below are screening guidelines for women ages 18 to 39. BLOOD PRESSURE SCREENING Your blood pressure should be checked at least once every 3 to 5 years if: Your blood pressure is in the normal range (top number less than 120 mm Hg and bottom number less than 80 mm Hg) You don't have risk factors for high blood pressure Ask your provider if you need your blood pressure checked more often if: The top number is 120 to 129 mm Hg or the bottom number is 70 to 79 mm Hg You have diabetes, heart disease, kidney problems, are overweight, or have certain other health conditions You have a first-degree relative with high blood pressure You are Black You had high blood pressure during a If the top number is 130 mm Hg or greater or the bottom number is 80 mm Hg or greater, this is considered stage 1 hypertension. Schedule an appointment with your provider to learn how you can reduce your blood pressure. Watch for blood pressure screenings in your area. Ask your provider if you can stop in to have your blood pressure checked. BREAST CANCER SCREENING Experts do not agree about the benefits of breast self-exams in finding breast cancer or saving lives. Talk to your provider about what is best for you. A screening mammogram is not recommended for most women under age 40. Your provider may discuss and recommend mammograms, MRI scans, or ultrasounds if you have an increased risk for breast cancer, such as: A mother or sister who had breast cancer at a young age (most often starting screening earlier than the age the close relative was diagnosed) You carry a high-risk genetic marker CERVICAL CANCER SCREENING Cervical cancer screening should start at age 21 years unless your provider advises otherwise. After the first test: Women ages 21 through 29 should have a Pap test every 3 years. Exoprts do not agree on whether HPV testing is recommended for this age group. Women ages 30 through 65 should be screened with either a Pap test every 3 years or the HPV test every 5 years or both tests every 5 years (called cotesting ). Women who have been treated for precancer (cervical dysplasia) should continue to have Pap tests for 20 years after treatment or until age 65, whichever is longer. If you have had your uterus and cervix removed (total hysterectomy), and you have not been diagnosed with cervical cancer or precancer (high grade cervical neoplasia), you do not need cervical cancer screening. CHOLESTEROL SCREENING Cholesterol screening should begin at: Age 45 for women with no known risk factors for coronary heart disease Age 20 for women with known risk factors for coronary heart disease Repeat cholesterol screening should take place: Every 5 years for women with normal cholesterol levels More often if changes occur in lifestyle (including weight gain and diet) More often if you have diabetes, heart disease, kidney problems, or certain other conditions DIABETES SCREENING You should be screened for diabetes starting at age 35 and then repeated every 3 years if you have no risk factors for diabetes. Screening may need to start earlier and be repeated more often if you have other risk factors for diabetes, such as: You have a first degree relative with diabetes. You are overweight or have obesity. You have high blood pressure, prediabetes, or a history of heart disease. Screening for diabetes should be done if you are planning to become and you are overweight and have other risk factors such as high blood pressure. DENTAL EXAM Go to the dentist once or twice every year for an exam and cleaning. Your dentist will evaluate if you need more frequent visits. EYE EXAM Have an eye exam every 5 to 10 years before age 40. If you have vision problems, have an eye exam every 2 years or more often if recommended by your provider. You should have an eye exam that includes an examination of your retina (back of your eye) at least every year if you have diabetes. IMMUNIZATIONS Commonly needed vaccines include: Flu shot: get one every year. COVID-19 vaccine: ask your provider what is best for you. Tetanus-diphtheria and acellular pertussis (Tdap) vaccine: have one at or after age 19 as one of your tetanus-diphtheria vaccines if you did not receive it as an adolescent. Tetanus-diphtheria: have a booster (or Tdap) every 10 years. Varicella vaccine: receive 2 doses if you never had chickenpox or the varicella vaccine. Hepatitis B vaccine: receive 2, 3, or 4 doses, depending on your exact circumstances. Measles, mumps, and rubella (MMR) vaccine: receive 1 to 2 doses if you are not already immune to MMR. Your provider can tell you if you are immune. Ask your provider about the human papillomavirus (HPV) vaccine if: You have not received the HPV vaccine in the past You have not completed the full vaccine series (you should catch up on this shot) Ask your provider if you should receive other immunizations if you have certain health problems that increase your risk for some diseases such as pneumonia. INFECTIOUS DISEASE SCREENING Women who are sexually active should be screened for chlamydia and gonorrhea up until age 25. Women 25 years and older should be screened for chlamydia and gonorrhea if at high risk. Screening for hepatitis C: All adults ages 18 to 79 should get a one-time test for hepatitis C. people should be screened at every . Screening for human immunodeficiency virus (HIV): All people ages 15 to 65 should get a one-time test for HIV. Depending on your lifestyle and medical history, you may also need to be screened for infections such as syphilis and HIV, as well as other infections. PHYSICAL EXAM All adults should visit their provider from time to time, even if they are healthy. The purpose of these visits is to: Screen for disease Assess your risk of future medical problems Encourage a healthy lifestyle Update your vaccinations and other preventive care services Maintain a relationship with a provider in case of an illness Your height, weight, and BMI should be checked at every exam. During your exam, your provider may ask you about: Depression and anxiety Diet and exercise Alcohol and tobacco use Safety issues, such as using seat belts, smoke detectors, and intimate partner violence Your medicines and risk for interactions SKIN SELF-EXAM Your provider may check your skin for signs of skin cancer, especially if you're at high risk, such as if you: Have had skin cancer before Have close relatives with skin cancer Have a weakened immune system OTHER SCREENING Talk with your provider about colon cancer screening if you have a strong family history of colon cancer or polyps, or if you have had inflammatory bowel disease or polyps yourself. Routine bone density screening of women under 40 is not recommended.
[2025-04-19 09:15] VITALS: BP 105/70; PULSE 62; RESP 12; TEMP 36.2; O2SAT 94; BMI 31.8
--- OUTSIDE RECORDS SUMMARY | 2025-04-19 09:25 | XMS_ITS | Encounter Summary ---
Author Organization [facility] Address [address] [place] [address] Care Team Providers Care Color Laboratory Technician Name Role Phone Raquel Jennings CARPENTER HELPER Primary Care Provider [phone] Reason for Visit * Reason Onset Date Comments Results 04/16/2025 Encounter Details Date Type Department Care Team (Late st Contact Info) Description 04/16/2025 Telephone Gastroenterology - [address] [place] [id number] Julai Chou MA Results Social History Tobacco Use Types Packs/Day Years Used Date Smoking Tobacco: Never Smokeless Tobacco: Never Alcohol Use Standard Drinks/Week Comments Not Currently 0 (1 standard drink = 0.6 oz pur e alcohol) Food Risk Answer Date Recorded Within the past 12 months we worried whether our food would run out before we got money to buy more. Not asked 03/04/2025 Within the past 12 months th e food we bought just didn't last and we didn't have money to get more. Not asked 03/04/2025 Interpersonal Safety Answer Date Record ed Physical Abuse 03/04/2025 Verbal Abuse 03/04/2025 Comments Unknown Sex and Gender Information Value Date Recorded Sex Assigned at Female 12/24/2024 10:19 AM EDT Legal Sex Female 10:16 AM EDT Gender Identity Female 12/24/2024 10:19 AM EDT Sexual Orientation Straight 12/24/2024 10 :19 AM EDT documented as of this encounter Progress Notes * Julia Chou MA - 04/16/2025 2:52 PM EDT Results below given. * Julia Chou MA - 04/16/2025 2:52 PM EDT ----- Message from Rosalino Paula MD sent at 04/16/2025 1:17 PM EDT ----- Call pt, CBC good, red cells back to normal, good news ty documented in this encounter Plan of Treatment Not on file documented as of this encounter Visit Diagnoses Not on filedocumented in this encounter Care Teams Color Laboratory Technician Relationship Specialty Start Date End Date Raquel Jennings NP [address] [place] [id number] PCP - General Gastroenterology 04/16/25 documented as of this encounter
== END 2025-04-19 09:44 | disposition home or self-care (01) ==
LOC: HO.HMCFM 09:07
PROVIDERS: PCP Nurse Practitioner Family; Visit Provider Nurse Practitioner Family
DX: Z00.01 Encounter for general adult medical examination with abnormal findings (principal); I10 Essential (primary) hypertension; E66.9 Obesity, unspecified; Z68.31 Body mass index [BMI] 31.0-31.9, adult; D50.0 Iron deficiency anemia secondary to blood loss (chronic); K63.5 Polyp of colon; Z87.19 Personal history of other diseases of the digestive system; Z78.0 Asymptomatic menopausal state; Z23 Encounter for immunization

== ENCOUNTER → 2025-04-19 09:06 | Outpatient (BNVA) | payer OTHER, SELFPAY | PROVIDERS: PCP Nurse Practitioner Family; Visit Provider Nurse Practitioner Family | DX: Z00.01 Encounter for general adult medical examination with abnormal findings (principal); Z23 Encounter for immunization; I10 Essential (primary) hypertension; D50.0 Iron deficiency anemia secondary to blood loss (chronic); E66.9 Obesity, unspecified; Z68.31 Body mass index [BMI] 31.0-31.9, adult; K63.5 Polyp of colon; Z87.19 Personal history of other diseases of the digestive system; Z78.0 Asymptomatic menopausal state | CPT/HCPCS: 90471; 90715 ==

== ENCOUNTER 2025-04-26 12:46 | Outpatient (AMB) | payer OTHER, SELFPAY ==
--- NOTE | 2025-04-26 12:45 | A.OFFPC_ITS ---
Intake Visit Reasons: review CT scan findings Intake Note: Telehealth review CT imaging. Patient also has concern regarding abd flare up. [employer] Required: No Allergies No Known Allergies Allergy (Verified 04/26/25 14:45) Medication List - Last Reconciled 04/26/25 by Sonia Enriquez 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 - Ovarian cyst identified on CT scan. - Referral to PRINTING SPECIALIST in place - History of stress due to complex medic al situation. - Incidental findings: - Kidney stones i dentified without complications. - Umbilical hernia noted, but non-progre ssive. - Enlarged pelvic lymph node abnormality requires follow-up. - Adrenal gland thickening and kidney cy st identified, recommend nephrologic evaluation. - Bleeding and anemia history with iron supplementation for improvement. - Overwhelmed by multiple findings and p miker emergency room experience. Review of Systems - Gastrointestinal: Reports an umbilical hernia. - Genitourinary: Reports ovarian cyst an d kidney stones. - Lymphatic: Reports enlarged pelvic lym ph node. - Endocrine: Reports adrenal gland thick ening. - Hematologic: Reports past anemia, impr matias with iron supplementation. Results - Imaging Tests: - CT scan showed ovaria n cyst, kidney stones, umbilical hernia, enlarged pelvic lymph node, and renal cyst. - Thickening noted in adrenal glands. Assessment and Plan 1. Ovarian Cyst - Expedite PRINTING SPECIALIST referral for evaluatio n. [place] [facility] [place] [place] sooner appt as appt in sep for now 2. Kidney Stones - No current complications; no follow-up needed presently. 3. Umbilical Hernia - No intervention currently required. 4. Enlarged Pelvic Lymph Node - Follow-up required; outside normal par ameters. US ordered 5. Adrenal Gland Thickening - Certified Surgical Assistant referral with ultrasound evaluation. 6. Renal Cyst - Certified Surgical Assistant referral; ultrasound reas sessment planned. 7. Anemia - Continue iron supplementation due to p ast poor anemia management. I will fu w/ her once results are back and go from there Telehealth Attestation The details of this patient encounter were gathered through a virtual consultation platform with comprehensive patient engagement via videoconference. The patient provided verbal consent for this mode of care, understanding the benefits and limitations compared to in-person appointments. Information documented in this note reflects the patient-reported details and clinician's recommendations during this telehealth visit. The patient has been explained that this is an interactive (audio/video) telehealth encounter and what that consists of. The patient understands and wishes to proceed. [employer] platform was used. Total time spent caring for the patient today was 31 minutes. This includes time spent before the visit reviewing the chart, time spent during the visit, and time spent after the visit on documentation, reviewing laboratory results, diagnostic imaging, medications, performing a medically necessary evaluation, counseling on diagnoses, care coordination, ordering appropriate tests, ordering appropriate medications, review of tests performed by other providers, reporting test results with the patient, communication with other healthcare providers. [facility] Medical History (Updated 04/26/25 @ 14:52 by Sonia Enriquez [facility] IBS (irritable bowel syndrome) Pulmonary embolism (~2017) Surgical History (Updated 01/20/25 @ 12:57 by Sonia Enriquez [facility]) History of colonoscopy (~2024) Family History (Updated 01/20/25 @ 13:22 by Sunil Acosta MA) Mother Asthma Father HTN (hypertension) Diabetes Maternal Grandmother HTN (hypertension) Paternal Grandmother Diabetes Maternal Grandfather Diabetes Social History (Updated 01/20/25 @ 12:34 by Sunil Acosta MA) Household Members: Spouse and Children Both parents involved: No Caregiver staying overnight: No Housing: House Are you a primary primary care nurse practitioner to a significant other at home: No Do you presently have visiting nurse or other home services: No 75 years or older and lives alone: No Alcohol intake: never Patient Tobacco Use Status: Never used Tobacco e-Cigarette/Vaping Use: Never Used Second Hand Smoke Exposure: No service: No Current occupational status: unemployed Cognitive needs: No Hearing needs: No Vision needs: Yes (wear glasses) Questionnaire Thrive Questionnaire Date Thrive assessed: 01/20/25 I am a: Patient What is your living situation today?: I have a steady place to live Within the past 12 months, did the food you bought not last and you didn't have the money to get more?: Never true Within the past 12 months, did you worry whether your food would run out before you got money to buy more?: Never true Do you have trouble paying for medicines?: No Do you have trouble getting transportation to medical appointments?: No Do you have trouble paying your heating and electricity bill?: No Do you have trouble taking care of your child, family member or friend?: No Do you have trouble with day-to-day activities such as bathing, preparing meals, shopping, managing finances, etc.?: No Are you currently unemployed and looking for a job?: No Are you interested in more education?: No Please select the resources that you would like help with: None Currently or been in a relationship where the following occur: No concerns reported THRIVE Score: 0 KATE-7 AMB Questionnaire KATE-7 Date KATE - 7 assessed: 01/20/25 Source: Developed by Drs. Donald Islas, India Santiago, Joseluis Breaux and colleagues, with an educational jennifer from [employer]. Physical exam (Primary Care) Tobacco/Smoking Status: Tobacco use Status Tobacco use date assessed 04/19/25 04/26/25 12:47 Patient Tobacco Use Status Never used Tobacco 04/26/25 12:47 e-Cigarette/Vaping Use Never Used 04/26/25 12:47 Thrive Assessment: Date of Thrive Assessment Date Thrive assessed 01/20/25 04/26/25 12:47 Currently or been in a relationship where the following occur: No concerns reported Telehealth Telehealth Telehealth Platform: [facility] Location of provider rendering services: practice address Location of patient: address on file Patient Identification confirmed using: Name, : Yes Telehealth method: voice only Patient verbally consented to treatment: Yes Patient verbally consented to billing insurance company: Yes Patient informed of any privacy concerns related to visit: Yes Minutes spent on Phone/Video with Pt.: 14 Results Reviewed Results Reviewed: Coding Level of Care Code Tele Est Pt Level 4 (18241) Complex EM visit Add On G2211 Diagnoses Encounter to discuss test results Z71.2 Right ovarian cyst N83.201 Umbilical hernia without obstruction and without gangrene K42.9 Obstruction and gangrene presence: without obstruction or gangrene Splenomegaly R16.1 Splenic lesion D73.89 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 Pelvic lymphadenopathy R59.0 Renal cyst, left N28.1 Nephrolithiasis N20.0 Time Spent (min) 31 Assessment & Plan Assessment & Plan (1) Encounter to discuss test results: Code(s): Z71.2 - Person consulting for explanation of examination or test findings Category: Medical (2) Right ovarian cyst: Onset Date: ~02/2025 Comment: message [place] [facility] [place] [facility] to request sooner Appt US imaging ordered Code(s): N83.201 - Unspecified ovarian cyst, right side Category: Medical (3) Umbilical hernia without mention of obstruction or gangrene: Code(s): K42.9 - Umbilical hernia without obstruction or gangrene Category: Medical Qualifiers: Obstruction and gangrene presence: without obstruction or gangrene Q ualified Code(s): K42.9 - Umbilical hernia without obstruction or gangrene (4) Splenomegaly: Onset Date: ~02/2025 Comment: 1.2 cm low attenuation lesion spleen mildly enlarged spleen Code(s): R16.1 - Splenomegaly, not elsewhere classified Category: Medical (5) Splenic lesion: Onset Date: ~02/2025 Comment: 1.2 cm low attenuation lesion spleen mildly enlarged spleen Code(s): D73.89 - Other diseases of spleen Category: Medical (6) Adrenal gland anomaly: Comment: mild thickening of adrenal glands Code(s): Q89.1 - Congenital malformations of adrenal gland Category: Medical (7) Pelvic lymphadenopathy: Code(s): R59.0 - Localized enlarged lymph nodes Category: Medical (8) Renal cyst, left: Comment: 3.2 cm L renal cyst Code(s): N28.1 - Cyst of kidney, acquired Category: Medical (9) Nephrolithiasis: Code(s): N20.0 - Calculus of kidney Category: Medical Plan . Orders: Orders 2 US abdomen complete Today N28.1 - Cyst of kidney, acquired, N83.201 - Unspecified ovarian cyst, right side, Q89.1 - Congenital malformations of adrenal gland, R16.1 - Splenomegaly, not elsewhere classified, R59.0 - Localized enlarged lymph nodes US pelvic and transvaginal Today N28.1 - Cyst of kidney, acquired, N83.201 - Unspecified ovarian cyst, right side, Q89.1 - Congenital malformations of adrenal gland, R16.1 - Splenomegaly, not elsewhere classified, R59.0 - Localized enlarged lymph nodes Referrals 2 Nephrology Referral N20.0 - Calculus of kidney, N28.1 - Cyst of kidney, acquired, Q89.1 - Congenital malformations of adrenal gland
--- OUTSIDE RECORDS SUMMARY | 2025-04-26 13:26 | XMS_ITS | Clinical Summary ---
Author Organization [place] [address] [address] [facility] Address [address] [place] [address] Phone Care Team Providers Care Automation Engineering Technician Name Role Phone Giovanni Jenningsothy Jane WELDER EXPERIMENTAL Primary Care Provider Brendai labtyree Allergies No known active allergies Medications nebivoloL (Bystolic) 5 mg tablet Take 1 tablet (5 mg total) by mouth 1 (one) time each day. 30 each 12/22/2024 Active amLODIPine-vals any (Exforge) 5-160 mg per tablet Take 1 tablet by mouth 1 (one) time each day. 30 tablet 12/22/2024 Active ferrous sulfate 325 mg (65 mg iron) EC tablet Take 1 tablet (325 mg total) by mouth 1 (one) time each day with breakfast. Do not crush, chew, or split. 30 each 1 12/24/2024 Active ascorbic acid (VITAMIN C) 500 mg CR capsule Take 1 capsule (500 mg total) by mouth 1 (one) time each day. Active Active Problems Problem Noted Date Diagnosed Date Lower gastrointestinal hemorrhage 03/04/2025 HTN (hypertension) 03/04/2025 Anemia 03/04/2025 Assessment & Plan (03/11/2025 9:41 AM EDT): Recheck CBC 0ne month. If not normalizing schedule capsule endoscopy Orders: CBC and differential; Future Encounters Date Type Department Care Team Description 04/16/2025 Telephone Gastroenterology - [address] [place] [address] Julia Chou MA Results 03/11/2025 9:20 AM EDT Office Visit Gastroenterology - [address] [place] [phone] Raquel Jennings, ADRIAN Iron deficiency anemia due to chronic blood loss (Primary Dx); Adenomatous polyp of sigmoid colon 03/11/2025 Telephone Gastroenterology - [address] [phone] Tenzin Paula MD 03/09/2025 Telephone Gastroenterology - [address] [phone] Julia Chou MA Results 03/04/2025 3:05 PM EDT Anesthesia Event [facility] [address] [place] [address] Bolivar Robles MD Kriz, Petra, MD 03/03/2025 8:54 PM EDT - 03/05/2025 5:45 PM EDT Hospital Encounter [facility] [address] [place] [address] Serina Lyons DO Jones, Christopher, MD Kela, Kashyap Devendrabhai, MD Rectal bleeding (Primary Dx); Colonoscopy causing post-procedural bleeding Discharge Disposition: Home or Self Care 03/03/2025 9:09 AM EDT Anesthesia Event [facility] [address] [place] [address] Himanshu Nicole DO 03/03/2025 8:30 AM EDT - 03/03/2025 11:59 PM EDT Hospital Encounter [facility] [address] [place] [address] Tenzin Paula MD Elliott, Barbara J, CRNA Rectal bleeding; Iron deficiency anemia Discharge Disposition: Home or Self Care from Last 3 Months Medical History Medical History Date Comments Hypertension Pulmonary embolism (CMS/HCC V24, CMS/HCC V28) Anemia Social History Tobacco Use Types Packs/Day Years Used Date Smoking Tobacco: Never Smokeless Tobacco: Never Tobacco Cessation:Counseling Given: Not Answered Alcohol Use Standard Drinks/Week Comments Not Currently [...] Orientation Straight 12/24/2024 10 :19 AM EDT Obstetrics History Last Filed Vital Signs Vital Sign Reading Time Taken Comments Blood Pressure 111/69 03/05/2025 2:36 PM EDT Pulse 68 03/05/2025 2:36 PM EDT Temperature 36.5 C (97.7 F) 03/05/2025 2:36 PM EDT Respiratory Rate 14 03/05/2025 2:36 PM EDT Oxygen Saturation 100% 03/05/2025 2:36 PM EDT Inhaled Oxygen Concentration - - Weight 86.2 kg (190 lb) 03/11/2025 9:23 AM EDT Height 167.6 cm (5' 6 ) 03/11/2025 9:23 AM EDT Body Mass Index 30.67 03/11/2025 9:23 AM EDT Plan of Treatment Health Maintenance Due Date Last Done Comments Breast Cancer Screening 1965 DTaP,Tdap,and Td Vaccines (1 - Tdap) 1983 Cervical Cancer Screening: Pap Smear 1985 Pneumococcal Vaccine: 50+ Years (1 of 1 - PCV) 2014 Zoster Vaccines (1 of 2) 2014 RSV Immunization Adult Patients (1 - Risk 60-74 years 1-dose series) 2024 Depression Screening 10/07/2024 Cholesterol Screening (Lipid Panel) 12/22/2024 HIV Screening 12/22/2024 Hepatitis C Screening 12/22/2024 Influenza Vaccine (#1) 2025 07/25/2024 Social Influencers of Health Screening 03/04/2026 03/04/2025 Hypertension/CHF/CAD Annual BMP Blood Test 04/16/2026 04/16/2025, 03/04/2025, 03/03/2025, Additional history exists Colorectal Cancer Screening: Colonoscopy 03/03/2035 03/03/2025 COVID-19 Vaccine Completed 07/25/2024 HIB Vaccines Aged Out [...] to complete this topic RSV Immunization Patients Under 20 months Aged Out No longer eligible based on patient's age to complete this topic Varicella Vaccines Aged Out No longer eligible based on patient's age to complete this topic Procedures Procedure Name Priority Date/Time Associated Diagnosis Comments CBC WITH AUTO DIFFERENTIAL Routine 04/16/2025 8:37 AM EDT Iron deficiency anemia due to chronic blood loss COMPREHENSIVE METABOLIC PANEL Routine 04/16/2025 8:37 AM EDT Diarrhea, unspecified type Other iron deficiency anemia Rectal bleeding ENDOMYSIAL ANTIBODY, IGA Routine 04/16/2025 8:37 AM EDT Diarrhea, unspecified type Other iron deficiency anemia Rectal bleeding Iron refractory iron deficiency anemia TISSUE TRANSGLUTAMINASE, IGA Routine 04/16/2025 8:37 AM EDT Diarrhea, unspecified type Other iron deficiency anemia Rectal bleeding Iron refractory iron deficiency anemia CBC AND DIFFERENTIAL Routine 04/16/2025 8:37 AM EDT Iron deficiency anemia due to chronic blood loss HEMOGLOBIN AND HEMATOCRIT Routine 03/05/2025 7:02 AM EDT SST - GOLD Routine 03/05/2025 7:00 AM EDT EXTRA TUBES Routine 03/05/2025 7:00 AM EDT FLEXIBLE SIGMOIDOSCOPY Routine 3:35 PM EDT Colonoscopy causing post-procedural bleeding TISSUE EXAM Routine 03/04/2025 3:28 PM EDT Rectal bleeding Colonoscopy causing post-procedural bleeding HEMOGLOBIN AND HEMATOCRIT Routine 03/04/2025 1:19 PM EDT CBC WITH AUTO DIFFERENTIAL Routine 03/04/2025 5:39 AM EDT CBC AND DIFFERENTIAL Routine 03/04/2025 5:39 AM EDT BASIC METABOLIC PANEL Routine 03/04/2025 5:39 AM EDT HEMOGLOBIN AND HEMATOCRIT Timed 03/04/2025 1:[address] ANGIO ABDOMEN PELVIS WO AND/OR W CONTRAST STAT 03/03/2025 10:11 PM EDT Rectal bleeding HEMOGLOBIN AND HEMATOCRIT STAT 03/03/2025 9:46 PM EDT CBC WITH AUTO DIFFERENTIAL STAT 03/03/2025 7:38 PM EDT TYPE AND SCREEN STAT 03/03/2025 7:38 PM EDT COMPREHENSIVE METABOLIC PANEL STAT 03/03/2025 7:38 PM EDT CBC AND DIFFERENTIAL STAT 03/03/2025 7:38 PM EDT EGD Routine 03/03/2025 10:15 AM EDT Rectal bleeding Iron deficiency anemia COLONOSCOPY Routine 03/03/2025 10:15 AM EDT Rectal bleeding Iron deficiency anemia TISSUE EXAM Routine 03/03/2025 9:20 AM EDT Rectal bleeding Iron deficiency anemia from Last 3 Months Results * Endomysial antibody, IgA (04/16/2025 8:37 AM EDT) [facility] Endomysial IgA Negative Negative 04/18/2025 12:41 PM EDT [facility] Blood Venous blood specimen / Unknown Venipuncture / Unknown 04/16/2025 8:37 AM EDT 04/16/2025 8:37 AM EDT us Raquel Jennings WELDER EXPERIMENTAL LAB BLOOD ORDERABLES Final Re sult [facility] [address] [place] [address], [place] [phone] * (ABNORMAL) CBC auto differential (04/16/2025 8:37 AM EDT) Only the most recent of3 resultswithin the time period is included. [facility] WBC 3.8(L) 4.8 - 10.8 K/mcL LAB HEMETOLOGY METHOD 04/16/2025 11:50 AM EDT [facility] RBC 4.40 3.80 - 4.80 M/mcL LAB HEMETOLOGY METHOD 04/16/2025 11:50 AM EDT [facility] Hemoglobin 13.1 11.5 - 16.0 g/dL LAB HEMETOLOGY METHOD 04/16/2025 11:50 AM EDT [facility] Hematocrit 42.3 35.0 - 47.0 % LAB HEMETOLOGY METHOD 04/16/2025 11:50 AM EDT [facility] MCV 95.3 79.0 - 98.0 FL LAB HEMETOLOGY METHOD 04/16/2025 11:50 AM EDT [facility] MCH 29.5 27.0 - 32.0 pcg LAB HEMETOLOGY METHOD 04/16/2025 11:50 AM [facility] MCHC 31.0(L) 32.0 - 37.0 g/dL LAB HEMETOLOGY METHOD 04/16/2025 11:50 AM [facility] RDW 13.8 11.0 - 15.0 % LAB HEMETOLOGY METHOD 04/16/2025 11:50 AM [facility] Platelets 183 130 - 400 K/mcL LAB HEMETOLOGY METHOD 04/16/2025 11:50 AM [facility] MPV 10.8 7.0 - 11.0 UT LAB HEMETOLOGY METHOD 04/16/2025 11:50 AM [facility] NRBC 0.0 <1.0 % LAB HEMETOLOGY METHOD 04/16/2025 11:50 AM [facility] NRBC Absolute 0.00 <0.10 K/mcL LAB HEMETOLOGY METHOD 04/16/2025 11:50 AM [facility] Neutrophils Relative 48.2 % LAB HEMETOLOGY METHOD 04/16/2025 11:50 AM [facility] Lymphocytes Relative 39.2 % LAB HEMETOLOGY METHOD 04/16/2025 11:50 AM [facility] Monocytes Relative 8.3 % LAB HEMETOLOGY METHOD 04/16/2025 11:50 AM [facility] Eosinophils Relative 3.5 % LAB HEMETOLOGY METHOD 04/16/2025 11:50 AM [facility] Basophils Relative 0.8 % LAB HEMETOLOGY METHOD 04/16/2025 11:50 AM [facility] Immature Granulocytes Relative 0.0 % LAB HEMETOLOGY METHOD 04/16/2025 11:50 AM EDT [facility] Neutrophils Absolute 1.81 1.50 - 7.00 K/mcL LAB HEMETOLOGY METHOD 04/16/2025 11:50 AM EDT [facility] Lymphocytes Absolute 1.47 1.00 - 5.00 K/mcL LAB HEMETOLOGY METHOD 04/16/2025 11:50 AM EDT [facility] Monocytes Absolute 0.31 0.20 - 1.00 K/mcL LAB HEMETOLOGY METHOD 04/16/2025 11:50 AM EDT [facility] Eosinophils Absolute 0.13 0.00 - 0.50 K/mcL LAB HEMETOLOGY METHOD 04/16/2025 11:50 AM EDT [facility] Basophils Absolute 0.03 0.00 - 0.20 K/mcL LAB HEMETOLOGY METHOD 04/16/2025 11:50 AM EDT [facility] Immature Granulocytes Absolute 0.00 0.00 - 0.03 K/mcL LAB HEMETOLOGY METHOD 04/16/2025 11:50 AM EDT [facility] Blood Venous blood specimen / Unknown Venipuncture / Unknown 04/16/2025 8:37 AM EDT 04/16/2025 8:37 AM EDT Raquel Jennings WELDER EXPERIMENTAL LAB BLOOD ORDERABLES Final Re sult [facility] [address] [place] [address], * Tissue transglutaminase, IgA (04/16/2025 8:37 AM EDT) Tissue Transglutaminase Ab, IgA Quant 1 <4 unit/mL LAB CHEMISTRY METHOD 04/21/2025 11:18 AM EDT [facility] Tissue Transglutaminase Ab, IgA Negative Negative LAB CHEMISTRY METHOD 04/21/2025 11:18 AM EDT [facility] Blood Venous blood specimen / Unknown Venipuncture / Unknown 04/16/2025 8:37 AM EDT 04/16/2025 8:37 AM EDT us Raquel Jennings WELDER EXPERIMENTAL LAB BLOOD ORDERABLES Final Re sult [facility] [address] [place] [address], [place] [phone] * (ABNORMAL) Comprehensive metabolic panel (04/16/2025 8:37 AM EDT) Only the most recent of2 resultswithin the time period is included. Sodium 141 133 - 145 mmol/L LAB CHEMISTRY METHOD 04/16/2025 12:04 PM [facility] Potassium 5.2 3.5 - 5.5 mmol/L LAB CHEMISTRY METHOD 04/16/2025 12:04 PM [facility] Chloride 110 96 - 110 mmol/L LAB CHEMISTRY METHOD 04/16/2025 12:04 PM [facility] CO2 30 21 - 32 mmol/L LAB CHEMISTRY METHOD 04/16/2025 12:04 PM [facility] Anion Gap 1(L) 3 - 11 LAB CHEMISTRY METHOD 04/16/2025 12:04 PM [facility] Glucose 95 70 - 100 mg/dL LAB CHEMISTRY METHOD 04/16/2025 12:04 PM [facility] BUN 15 5 - 25 mg/dL LAB CHEMISTRY METHOD 04/16/2025 12:04 PM [facility] Creatinine 0.66 0.50 - 1.10 mg/dL LAB CHEMISTRY METHOD 04/16/2025 12:04 PM [facility] eGFR 101 >=60 mL/min/1. 73m2 LAB CHEMISTRY METHOD 04/16/2025 12:04 PM [facility] Comment:Calculation based on the Chronic Kidney Disease Epidemiology Collaboration (CKD-EPI) equation refit without adjustment for race. BUN/Creatinine Ratio 22.7 LAB CHEMISTRY METHOD 04/16/2025 12:04 PM [facility] Calcium 9.8 8.5 - 10.5 mg/dL LAB CHEMISTRY METHOD 04/16/2025 12:04 PM [facility] AST (SGOT) 14 10 - 42 unit/L LAB CHEMISTRY METHOD 04/16/2025 12:04 PM [facility] ALT (SGPT) 25 10 - 60 unit/L LAB CHEMISTRY METHOD 04/16/2025 12:04 PM [facility] Alkaline Phosphatase 67 42 - 121 unit/L LAB CHEMISTRY METHOD 04/16/2025 12:04 PM [facility] Total Protein 7.7 6.0 - 8.0 g/dL LAB CHEMISTRY METHOD 04/16/2025 12:04 PM [facility] Albumin 4.0 3.2 - 5.0 g/dL LAB CHEMISTRY METHOD 04/16/2025 12:04 PM [facility] Total Bilirubin 0.5 0.0 - 1.4 mg/dL LAB CHEMISTRY METHOD 04/16/2025 12:04 PM [facility] Blood Venous blood specimen / Unknown Venipuncture / Unknown 04/16/2025 8:37 AM EDT 04/16/2025 8:37 AM EDT us Raquel Jennings NP LAB BLOOD ORDERABLES Final Re sult [facility] [address] [place] [address], * (ABNORMAL) Hemoglobin and hematocrit (03/05/2025 7:02 AM EDT) Only the most recent of4 resultswithin the time period is included. Hemoglobin 9.9(L) 11.5 - 16.0 g/dL LAB HEMETOLOGY METHOD 03/05/2025 7:30 AM EDT [facility] Hematocrit 32.5(L) 35.0 - 47.0 % LAB HEMETOLOGY METHOD 03/05/2025 7:30 AM EDT [facility] Blood Venous blood specimen / Unknown Venipuncture / Unknown 03/05/2025 7:02 AM EDT 03/05/2025 7:21 AM EDT us Richardson Luna MD LAB BLOOD ORDERABLE S Final Result Performing Organization Address [facility]/State/ZIP Co de Phone Number [facility] [address] [place] [address], [place] [phone] * SST tube (03/05/2025 7:00 AM EDT) Pathologist [facility] Extra Tube Hold for add-ons. 03/05/2025 9:01 AM EDT [facility] Comment:Auto resulted. Blood Venous blood specimen / Unknown 03/05/2025 7:00 AM EDT 03/05/2025 7:22 AM EDT us Richardson Luna MD LAB BLOOD ORDERABLE S Final Result Performing Organization Address City/[facility]/ZIP Co de Phone Number [facility] [address] [place] [address], [place] [phone] * FLEXIBLE SIGMOIDOSCOPY Anesthesia - MAC; [facility] ENDOSCOPY (03/04/2025 3:35 PM EDT) Anatomical Region Laterality Modality Endoscopy 03/04/2025 3:01 PM EDT Impressions 03/04/2025 3:41 PM EDT - One 12 mm polyp in the distal sigmoid colon. Clip (MR conditional) was placed. Clip hoisting machine operator: [employer]. - One 20 mm polyp in the mid sigmoid colon, removed with a hot snare. Resected and retrieved. Clips (MR conditional) were placed. Clip hoisting machine operator: [employer]. - One 20 mm polyp in the proximal sigmoid colon, removed with a hot snare. Resected and retrieved. Clip (MR conditional) was placed. Clip hoisting machine operator: [employer]. Recommendation: - Continue present medications. - Repeat flexible sigmoidoscopy in 3 months for surveillance. Narrative 03/04/2025 3:41 PM EDT [facility] GI Patient Name: Alpesh Macias Procedure Date: 03/04/2025 3:01 PM Date of : 1965 Age: 59 Room: ROOM 17 Gender: Female Note Status: Finalized Attending MD: Tenzin Paula MD, Procedure Date No Time: 03/04/2025 Procedure: Flexible Sigmoidoscopy Indications: Rectal hemorrhage, Treatment of bleeding from polypectomy site Providers: Tenzin Paula MD Referring MD: Tenzin Paula MD Medicines: Propofol per Anesthesia Complications: No immediate complications. Estimated Blood Loss: Estimated blood loss: none. Procedure: Pre-Anesthesia Assessment: - ASA Grade Assessment: E - Emergency. After obtaining informed consent, the endoscope was passed under direct vision. Throughout the procedure, the patient's blood pressure, pulse, and oxygen saturations were monitored continuously. The Colonoscope was introduced through the anus and advanced to the descending colon. The flexible sigmoidoscopy was performed with moderate difficulty due to difficult polypectomy, spasm and tortuosity. The patient tolerated the procedure well. The quality of the bowel preparation was adequate. Findings: A 12 mm polyp was found in the distal sigmoid colon. The polyp was pedunculated. To prevent bleeding after the polypectomy, one hemostatic clip was successfully placed (MR conditional). Clip hoisting machine operator: [employer]. There was no bleeding at the end of the procedure. This clip was placed on a massive stalk from yestrerday's polypectomy and there was still some remaining polyp at the tip, with an ulcer, that could not be snared due to the clips already in place. A 20 mm polyp was found in the mid sigmoid colon. The polyp was pedunculated. The polyp was removed with a hot snare. Resection and retrieval were complete. To prevent bleeding after the polypectomy, two hemostatic clips were successfully placed (MR conditional). Clip hoisting machine operator: [employer]. There was no bleeding at the end of the procedure. This polyp had been around 80% resected the day before, and I had to get the snare around the polyp, stalk and old clip, wihch was accomplished with great difficulty. A 20 mm polyp was found in the proximal sigmoid colon. The polyp was pedunculated. The polyp was removed with a hot snare. This polyp also had been around 80% resected the day before, and I had to get the snare around the polyp, stalk and old clip, wihch was accomplished with great difficulty. Resection and retrieval were complete. To prevent bleeding after the polypectomy, one hemostatic clip was successfully placed (MR conditional). Clip hoisting machine operator: [employer]. There was no bleeding at the end of the procedure. Procedure Code(s): --- Professional --- 44145, Sigmoidoscopy, flexible; with removal of tumor(s), polyp(s), or other lesion(s) by snare technique Diagnosis Code(s): --- Professional --- D12.5, Benign neoplasm of sigmoid colon K62.5, Hemorrhage of anus and rectum K91.840, Postprocedural hemorrhage of a digestive system organ or structure following a digestive system procedure CPT copyright 2020 [employer]. All rights reserved. The codes documented in this report are preliminary and upon keno manager review may be revised to meet current compliance requirements. Tenzin Paula MD 03/04/2025 3:41:26 PM This report has been signed electronically.Tenzin Paula MD Number of Addenda: 0 Note Initiated On: 03/04/2025 3:01 PM Scope In: Scope Out: Endoscopy Department at [facility] - [address] [place] [phone] Procedure Note Tenzin Paula MD - 03/04/2025 [facility] GI Patient Name: Alpesh Macias Procedure Date: 03/04/2025 3:01 PM Date of : 1965 Age: 59 Room: ROOM 17 Gender: Female Note Status: Finalized Attending MD: Tenzin Paula MD, Procedure Date No Time: 03/04/2025 Procedure: Flexible Sigmoidoscopy Indications: Rectal hemorrhage, Treatment of bleeding from polypectomy site Providers: Teznin Paula MD Referring MD: Tenzin Paula MD Medicines: Propofol per Anesthesia Complications: No immediate complications. Estimated Blood Loss: Estimated blood loss: none. Procedure: Pre-Anesthesia Assessment: - ASA Grade Assessment: E - Emergency. After obtaining informed consent, the endoscope was passed under direct vision. Throughout theprocedure, the patient's blood pressure, pulse, and oxygen saturations were monitored continuously. The Colonoscope was introduced through the anus and advanced to the descending colon. The flexible sigmoidoscopy was performed with moderatedifficulty due to difficult polypectomy, spasm and tortuosity. The patient tolerated the procedure well. Thequality of the bowel preparation was adequate. Findings: A 12 mm polyp was found in the distal sigmoidcolon. The polyp was pedunculated. To prevent bleedingafter the polypectomy, one hemostatic clip wassuccessfully placed (MR conditional). Clip hoisting machine operator: [employer]. There was no bleeding at the end of the procedure. This clip was placed on a massive stalk from yestrerday's polypectomy and there was stillsome remaining polyp at the tip, with an ulcer, thatcould not be snared due to the clips already in place. A 20 mm polyp was found in the mid sigmoid colon.The polyp was pedunculated. The polyp was removed witha hot snare. Resection and retrieval were complete.To prevent bleeding after the polypectomy, twohemostatic clips were successfully placed (MR conditional).Clip hoisting machine operator: [employer]. There was nobleeding at the end of the procedure. This polyp had been around 80% resected the day before, and I had toget the snare around the polyp, stalk and old clip,wihch was accomplished with great difficulty. A 20 mm polyp was found in the proximal sigmoidcolon. The polyp was pedunculated. The polyp was removedwith a hot snare. This polyp also had been around 80% resected the day before, and I had to get the snare around the polyp, stalk and old clip, wihch was accomplished with great difficulty. Resection and retrieval were complete. To prevent bleeding afterthe polypectomy, one hemostatic clip was successfully placed (MR conditional). Clip hoisting machine operator: [employer]. There was no bleeding at the end of the procedure. Procedure Code(s): --- Professional --- 55450, Sigmoidoscopy, flexible; with removal of tumor(s), polyp(s), or other lesion(s) by snare technique Diagnosis Code(s): --- Professional --- D12.5, Benign neoplasm of sigmoid colon K62.5, Hemorrhage of anus and rectum K91.840, Postprocedural hemorrhage of a digestive system organ or structure following a digestivesystem procedure CPT copyright 2020 [employer]. All rights reserved. The codes documented in this report are preliminary and upon keno manager reviewmay be revised to meet current compliance requirements. Tenzin Paula MD 03/04/2025 3:41:26 PM This report has been signed electronically.Tenzin Paula MD Number of Addenda: 0 Note Initiated On: 03/04/2025 3:01 PM Scope In: Scope Out: Endoscopy Department at [address] [phone] IMPRESSION: - One 12 mm polyp in the distal sigmoid colon. Clip (MR conditional) was placed. Clip hoisting machine operator:[employer]. - One 20 mm polyp in the mid sigmoid colon, removed with a hot snare. Resected and retrieved. Clips (MR conditional) were placed. Clip hoisting machine operator: [employer]. - One 20 mm polyp in the proximal sigmoid colon, removed with a hot snare. Resected and retrieved.Clip (MR conditional) was placed. Clip hoisting machine operator:[employer]. Recommendation: - Continue present medications. - Repeat flexible sigmoidoscopy in 3 months for surveillance. Tenzin Paula MD GI~PROCEDURE ORDERABLES Fin al Result * Tissue exam (03/04/2025 3:28 PM EDT) Only the most recent of2 resultswithin the time period is included. Final Diagnosis Polyp, sigmoid colon, polypectomy: - Polypoid fragment of edematous colonic mucosa with ischemic type mucosal injury, ulceration associated with fibrinopurulent debris, acute inflammation in the lamina propria and submucosa and reactive epithelial changes. (See note.) Note: Multiple additional levels are examined. No dysplasia/adenoma and no other definitive epithelial polyp is identified. The prominent edema and inflammation may contribute to the endoscopic appearance of a polyp and could be related to the patient's recent polypectomy (see prior report, [id number]). 03/08/2025 9:11 AM EDT [facility] Clinical Information Completion of polypectomy from yesterday 03/08/2025 9:11 AM EDT [facility] Gross Description A. Large Intestine, Sigmoid Colon, polyp x1: Labeled Sig colon polyp x 1 . Received in formalin is a 0.8 x 0.6 x 0.3 cm firm pink-red mucosal tissue fragment with cautery artifact on two aspects. The areas of cautery are differentially inked blue and black. The specimen is trisected, wrapped in paper, and entirely submitted in one cassette, three pieces, multiple levels on one slide. LISA 03/08/2025 9:11 AM T [facility] Disclaimer Unless otherwise specified, all tissue is 10% NB formalin fixed and paraffin embedded. 03/08/2025 9:11 AM T [facility] Tissue Sigmoid colon structure / Unknown 03/04/2025 3:28 PM EDT 03/04/2025 4:01 PM EDT Tenzin Paula MD LAB PATHOLOGY ORDERABLES Fi nal Result [facility] [address] [place] [address], * (ABNORMAL) Basic metabolic panel (03/04/2025 5:39 AM EDT) Sodium 139 133 - 145 mmol/L LAB CHEMISTRY METHOD 03/04/2025 6:19 AM T [facility] [facility] Potassium 4.2 3.5 - 5.5 mmol/L LAB CHEMISTRY METHOD 03/04/2025 6:19 AM [facility] Chloride 108 96 - 110 mmol/L LAB CHEMISTRY METHOD 03/04/2025 6:19 AM [facility] CO2 26 21 - 32 mmol/L LAB CHEMISTRY METHOD 03/04/2025 6:19 AM [facility] Anion Gap 5 3 - 11 LAB CHEMISTRY METHOD 03/04/2025 6:19 AM [facility] Glucose 105(H) 70 - 100 mg/dL LAB CHEMISTRY METHOD 03/04/2025 6:19 AM [facility] BUN 11 5 - 25 mg/dL LAB CHEMISTRY METHOD 03/04/2025 6:19 AM [facility] Creatinine 0.58 0.50 - 1.10 mg/dL LAB CHEMISTRY METHOD 03/04/2025 6:19 AM [facility] eGFR 104 >=60 mL/min/1. 73m2 LAB CHEMISTRY METHOD 03/04/2025 6:19 AM [facility] Comment:Calculation based on the Chronic Kidney Disease Epidemiology Collaboration (CKD-EPI) equation refit without adjustment for race. BUN/Creatinine Ratio 19.0 LAB CHEMISTRY METHOD 03/04/2025 6:19 AM [facility] Calcium 9.5 8.5 - 10.5 mg/dL LAB CHEMISTRY METHOD 03/04/2025 6:19 AM [facility] Blood Venous blood specimen / Unknown Venipuncture / Unknown 03/04/2025 5:39 AM EDT 03/04/2025 5:43 AM EDT us Saeed Mariee MD LAB BLOOD ORDERABLES Final Result [facility] [address] [place] [address], * CT Angio Abdomen Pelvis wo and/or w Contrast (03/03/2025 10:11 PM EDT) Anatomical Region Laterality Modality Body Computed Tomogra phy 03/03/2025 10:5 7 PM EDT Impressions 03/03/2025 10:57 PM EDT 1. No definite pooling of contrast to suggest active GI bleeding. 2. There is streak artifact caused by 3 linear metallic densities in the sigmoid colon, thought to be related to postprocedural changes in this patient who had a recent colonoscopy. This can be correlated with the patient's operative note. 3. No evidence of a bowel obstruction or free air. 4. Haziness is noted within a portion of the pelvic mesentery. There is an associated mildly enlarged lymph node measuring 10-11 mm in short axis dimension. This will need to be followed up. 5. A 2.6 cm ovoid right ovarian cystic lesion is noted. Follow-up nonurgent pelvic ultrasound is advised. 6. Additional findings are detailed above. This document has been electronically signed by: Claudio Rajput M.D. on 03/03/2025 22:57:05 Narrative 03/03/2025 10:57 PM EDT INDICATION: post colonoscopy bleed CTA ABDOMEN/PELVIS WITHOUT AND WITH CONTRAST AND 3D POST PROCESSING COMPARISON: None. FINDINGS: Sagittal and coronal MIP 3D reconstruction images were performed.Streak artifact is caused by 3 linear metallic densities within the sigmoid colon, thought to be related to postprocedural changes in this patient who had a recent colonoscopy. This can be correlated with the patient's operative note. Metallic densities cause streak artifact which limits assessment. No definite pooling of contrast in the distal esophagus, stomach, small bowel, colon, or rectum to suggest active bleeding. Portions of the colon are underdistended which limits assessment. No pericolonic inflammation. Appendix is visualized and there is no evidence of acute appendicitis. No evidence of a bowel obstruction or free air. Mild bibasilar atelectatic changes are noted. Liver is unremarkable. Gallbladder is unremarkable. No visible stone. Enteric contents and some gas are noted within the stomach. Stomach is underdistended which precludes accurate assessment. No CT evidence of acute pancreatitis. There is mild prominence of the pancreatic duct without focal lesion. Nonspecific 1.2 cm low-attenuation lesion is noted within the spleen. Spleen is mildly enlarged and measures 12.6 cm on axial image 43 of series 7. Mild thickening of the adrenal glands is noted. A few small less than 5 mm left-sided renal calculi are noted without hydronephrosis. No calculi in the ureters and urinary bladder. 3.2 cm left renal cyst is noted. A few subcentimeter low-attenuation lesions in the right kidney are too small to characterize. Multiple calcified phleboliths are noted in the pelvis. Urinary bladder is underdistended. 2.6 cm ovoid right ovarian cystic lesion is noted on axial image 144 of series 7. Uterus and adnexa are otherwise unremarkable. The abdominal aorta is normal in caliber, without evidence of an aneurysm or dissection. Origins of the celiac axis, superior mesenteric artery, renal arteries, and inferior mesenteric artery are patent. Haziness is noted within a portion of the pelvic mesentery. An associated mildly enlarged lymph node is noted, measuring 10-11 mm in short axis dimension on axial image 121 of series 7. Small fat containing umbilical hernia is noted. No evidence of a bowel containing hernia. The bone windows demonstrate no acute abnormalities. 9-10 mm probable bone island is noted within the left iliac bone. This is seen on coronal image 51. Procedure Note Claudio Rajput MD - 03/03/2025 INDICATION: post colonoscopy bleed CTA ABDOMEN/PELVIS WITHOUT AND WITH CONTRAST AND 3D POST PROCESSING COMPARISON: None. FINDINGS: Sagittal and coronal MIP 3D reconstruction images were performed.Streak artifact is caused by 3 linear metallic densitieswithin the sigmoid colon, thought to be related to postprocedural changes inthis patient who had a recent colonoscopy. This can be correlated with the patient's operative note. Metallic densities cause streak artifact which limits assessment. No definite pooling of contrast in the distal esophagus, stomach, small bowel, colon, or rectum to suggest active bleeding. Portions of the colon are underdistended which limits assessment. No pericolonic inflammation. Appendix is visualized andthere is no evidence of acute appendicitis. No evidence of a bowel obstruction or free air. Mild bibasilar atelectatic changes are noted. Liver is unremarkable. Gallbladder is unremarkable. No visible stone. Enteric contents and some gas are noted within the stomach. Stomach is underdistended which precludes accurate assessment. No CT evidence of acute pancreatitis.There is mild prominence of the pancreatic duct without focal lesion. Nonspecific 1.2 cm low-attenuation lesion is noted within the spleen. Spleen is mildly enlarged and measures 12.6 cm on axial image 43 ofseries 7. Mild thickening of the adrenal glands is noted. A few small less than 5mm left-sided renal calculi are noted without hydronephrosis. No calculi in the ureters and urinary bladder. 3.2 cm left renal cyst is noted. A few subcentimeter low-attenuation lesions in the right kidney are too smallto characterize. Multiple calcified phleboliths are noted in the pelvis. Urinary bladder is underdistended. 2.6 cm ovoid right ovarian cystic lesion is noted on axial image 144 of series 7. Uterus and adnexa are otherwise unremarkable. The abdominal aorta is normal in caliber, without evidence of ananeurysm or dissection. Origins of the celiac axis, superior mesenteric artery, renal arteries, and inferior mesenteric artery are patent. Haziness is noted within a portion of the pelvic mesentery. Anassociated mildly enlarged lymph node is noted, measuring 10-11 mm in short axis dimension on axial image 121 of series 7. Small fat containing umbilical hernia is noted. No evidence of a bowel containing hernia. The bone windows demonstrate no acute abnormalities. 9-10 mm probable bone island is noted within the left iliac bone. Thisis seen on coronal image 51. IMPRESSION: 1. No definite pooling of contrast to suggest active GI bleeding. 2. There is streak artifact caused by 3 linear metallic densities in the sigmoid colon, thought to be related to postprocedural changes in this patient who had a recent colonoscopy. This can be correlated with the patient's operative note. 3. No evidence of a bowel obstruction or free air. 4. Haziness is noted within a portion of the pelvic mesentery. There isan associated mildly enlarged lymph node measuring 10-11 mm in short axis dimension. This will need to be followed up. 5. A 2.6 cm ovoid right ovarian cystic lesion is noted. Follow-up nonurgent pelvic ultrasound is advised. 6. Additional findings are detailed above. This document has been electronically signed by: Claudio Rajput M.D. on 03/03/2025 22:57:05 us Serina Lyons DO IMG CT PROCEDURES Final R esult * Type and screen (03/03/2025 7:38 PM EDT) ABO Group A 03/03/2025 8:37 PM EDT [facility] Rh Type Positive 03/03/2025 8:37 PM EDT [facility] Antibody Screen Negative 03/03/2025 8:37 PM EDT [facility] Blood Venous blood specimen / Unknown Venipuncture / Unknown 03/03/2025 7:38 PM EDT 03/03/2025 7:59 PM EDT us Serina Lyons DO LAB BLOOD BANK TEST ORDER SHAHZAD Final Result [facility] [address] [place] [address], [place] [phone] * COLONOSCOPY Anesthesia - MAC; [facility] ENDOSCOPY (03/03/2025 10:15 AM EDT) Anatomical Region Laterality Modality Endoscopy 03/03/2025 8:46 AM EDT Impressions 03/03/2025 10:09 AM EDT - Blood in the recto-sigmoid colon. - One 20 mm polyp in the proximal sigmoid colon, removed with a hot snare. Resected and retrieved. Clip (MR conditional) was placed. - One 40 mm polyp in the distal sigmoid colon, removed piecemeal using a hot snare. Incomplete resection. Resected tissue retrieved. - The transverse colon and ascending colon are normal. Biopsied. - The entire examined colon is normal on direct and retroflexion views. Recommendation: - Repeat colonoscopy for surveillance based on pathology results. - May need surgery Narrative 03/03/2025 10:09 AM EDT [facility] Patient Name: Alpesh Macias Procedure Date: 03/03/2025 8:46 AM Date of : 1965 Age: 59 Room: ROOM 15 Gender: Female Note Status: Finalized Attending MD: Tenzin Paula MD, Procedure Date No Time: 03/03/2025 Procedure: Colonoscopy Indications: Iron deficiency anemia secondary to chronic blood loss Providers: Tenzin Paula MD Referring MD: Tenzin Paula MD Medicines: Propofol per Anesthesia Complications: No immediate complications. Estimated Blood Loss: Estimated blood loss: 25 mL requiring treatment with placement of hemostatic clip(s). Procedure: Pre-Anesthesia Assessment: - ASA Grade Assessment: III - A patient with severe systemic disease. After I obtained informed consent, the scope was passed under direct vision. Throughout the procedure, the patient's blood pressure, pulse, and oxygen saturations were monitored continuously.The Olympus Pediatric Colonoscope was introduced through the anus and advanced to the cecum, identified by appendiceal orifice and ileocecal valve. The colonoscopy was performed without difficulty. The patient tolerated the procedure well. The quality of the bowel preparation was adequate. The colonoscopy was technically difficult and complex due to difficult polypectomy. Findings: The perianal and digital rectal examinations were normal. Red blood was found in the recto-sigmoid colon. A 20 mm polyp was found in the proximal sigmoid colon. The polyp was pedunculated. The polyp was removed with a hot snare. Resection and retrieval were complete. To prevent bleeding after the polypectomy, one hemostatic clip was successfully placed (MR conditional). There was no bleeding at the end of the procedure. A 40 mm polyp was found in the distal sigmoid colon. The polyp was semi-pedunculated. The polyp was removed with a piecemeal technique using a hot snare. Polyp resection was incomplete. The resected tissue was retrieved. The polyp was on a huge stalk and I had to remove the giant head of the polyp in pieces, and contend withan extremely tortuous and spastic sigmoid, which was exceptionally difficult. After working on it for 30 minutes it became clear that the back part of the stalk was infiltrated by potentially malignnat polyp tissue, so I clipped the stalk twice with great difficulty and there was some remaining polyp at the back part of the stalk. The transverse colon and ascending colon appeared normal. Biopsies for histology were taken with a cold forceps from the right colon and transverse colon for evaluation of microscopic colitis. The entire examined colon appeared normal on direct and retroflexion views. Procedure Code(s): --- Professional --- 75559, Colonoscopy, flexible; with removal of tumor(s), polyp(s), or other lesion(s) by snare technique [id number], 59, Colonoscopy, flexible; with biopsy, single or multiple Diagnosis Code(s): --- Professional --- K92.2, Gastrointestinal hemorrhage, unspecified D12.5, Benign neoplasm of sigmoid colon D50.0, Iron deficiency anemia secondary to blood loss (chronic) CPT copyright 2020 [employer]. All rights reserved. The codes documented in this report are preliminary and upon keno manager review may be revised to meet current compliance requirements. 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 Estimated Blood Loss: Estimated blood loss: 25 mL requiring treatment with placement of hemostatic clip(s). Procedure: Pre-Anesthesia Assessment: - ASA Grade Assessment: III - A patient with severe systemic disease. After I obtained informed consent, the scope was passed under direct vision. Throughout theprocedure, the patient's blood pressure, pulse, and oxygen saturations were monitored continuously.The Olympus Pediatric Colonoscope was introduced through theanus and advanced to the cecum, identified byappendiceal orifice and ileocecal valve. The colonoscopy was performed without difficulty. The patient tolerated the procedure well. The quality of the bowel preparation was adequate. The colonoscopy was technically difficult and complex due to difficult polypectomy. Findings: The perianal and digital rectal examinations were normal. Red blood was found in the recto-sigmoid colon. A 20 mm polyp was found in the proximal sigmoidcolon. The polyp was pedunculated. The polyp was removedwith a hot snare. Resection and retrieval were complete.To prevent bleeding after the polypectomy, onehemostatic clip was successfully placed (MR conditional).There was no bleeding at the end of the procedure. A 40 mm polyp was found in the distal sigmoidcolon. The polyp was semi-pedunculated. The polyp wasremoved with a piecemeal technique using a hot snare. Polyp resection was incomplete. The resected tissue was retrieved. The polyp was on a huge stalk and I hadto remove the giant head of the polyp in pieces, and contend withan extremely tortuous and spasticsigmoid, which was exceptionally difficult. After working onit for 30 minutes it became clear that the back partof the stalk was infiltrated by potentially malignnat polyp tissue, so I clipped the stalk twice withgreat difficulty and there was some remaining polyp atthe back part of the stalk. The transverse colon and ascending colon appeared normal. Biopsies for histology were taken with acold forceps from the right colon and transverse colonfor evaluation of microscopic colitis. The entire examined colon appeared normal on direct and retroflexion views. 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 All rights reserved. The codes documented in this report are preliminary and upon keno manager reviewmay be revised to meet current compliance requirements. Tenzin Paula MD 03/03/2025 10:09:14 AM This report has been signed electronically.Tenzin Paula MD Number of Addenda: 0 Note Initiated On: 03/03/2025 8:46 AM Scope In: Scope Out: Endoscopy Department at [facility] - [address] [place] [phone] IMPRESSION: - Blood in the recto-sigmoid colon. - One 20 mm polyp in the proximal sigmoid colon, removed with a hot snare. Resected and retrieved.Clip (MR conditional) was placed. - One 40 mm polyp in the distal sigmoid colon,removed piecemeal using a hot snare. Incomplete resection. Resected tissue retrieved. - The transverse colon and ascending colon arenormal. Biopsied. - The entire examined colon is normal on direct and retroflexion views. Recommendation: - Repeat colonoscopy for surveillance based on pathology results. - May need surgery Tenzin Paula MD GI~PROCEDURE ORDERABLES Fin al Result * EGD Anesthesia - MAC; [facility] ENDOSCOPY (03/03/2025 10:15 AM EDT) Anatomical Region Laterality Modality Endoscopy 03/03/2025 10:0 9 AM EDT Impressions 03/03/2025 10:14 AM EDT - Normal esophagus. - Normal stomach. - Normal examined duodenum. Biopsied. Recommendation: - Await pathology results. Narrative 03/03/2025 10:14 AM EDT [facility] Patient Name: Alpesh Macias Procedure Date: 03/03/2025 10:09 AM Date of : 1965 Age: 59 Room: ROOM 15 Gender: Female Note Status: Finalized Attending MD: Tenzin Paula MD, Procedure Date No Time: 03/03/2025 Procedure: Upper GI endoscopy Indications: Iron deficiency anemia secondary to chronic blood loss Providers: Tenzin Paula MD Referring MD: Tenzin Paula MD Medicines: Propofol per Anesthesia Complications: No immediate complications. Estimated Blood Loss: Estimated blood loss: none. Procedure: Pre-Anesthesia Assessment: - ASA Grade Assessment: III - A patient with severe systemic disease. After obtaining informed consent, the endoscope was passed under direct vision. Throughout the procedure, the patient's blood pressure, pulse, and oxygen saturations were monitored continuously.The Endoscope was introduced through the mouth, and advanced to the second part of duodenum. The upper GI endoscopy was accomplished without difficulty. The patient tolerated the procedure well. Findings: The esophagus was normal. The stomach was normal. The examined duodenum was normal. Biopsies were taken with a cold forceps for histology. Procedure Code(s): --- Professional --- 82766, Esophagogastroduodenoscopy, flexible, transoral; with biopsy, single or multiple Diagnosis Code(s): --- Professional --- D50.0, Iron deficiency anemia secondary to blood loss (chronic) CPT copyright 2020 [employer]. All rights reserved. The codes documented in this report are preliminary and upon keno manager review may be revised to meet current compliance requirements. 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 Estimated Blood Loss: Estimated blood loss: none. Procedure: Pre-Anesthesia Assessment: - ASA Grade Assessment: III - A patient with severe systemic disease. After obtaining informed consent, the endoscope was passed under direct vision. Throughout theprocedure, the patient's blood pressure, pulse, and oxygen saturations were monitored continuously.TheEndoscope was introduced through the mouth, and advanced tothe second part of duodenum. The upper GI endoscopy was accomplished without difficulty. The patienttolerated the procedure well. Findings: The esophagus was normal. The stomach was normal. The examined duodenum was normal. Biopsies weretaken with a cold forceps for histology. 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 All rights reserved. The codes documented in this report are preliminary and upon keno manager reviewmay be revised to meet current compliance requirements. Tenzin Paula MD 03/03/2025 10:14:33 AM This report has been signed electronically.Tenzin Paula MD Number of Addenda: 0 Note Initiated On: 03/03/2025 10:09 AM Scope In: Scope Out: Endoscopy Department at [facility] - [address] [place] [phone] IMPRESSION: - Normal esophagus. - Normal stomach. - Normal examined duodenum. Biopsied. Recommendation: - Await pathology results. Tenzin Paula MD GI~PROCEDURE ORDERABLES Fin al Result from Last 3 Months Insurance [employer] Advance Directives * Full Code - Default (Latest Code Status on File) Date Activated Date Inactivated Comments 03/04/2025 12:04 AM 03/05/2025 8:27 PM This is ord er is used when code status has not been discussed with the patient, or code status is otherwise unknown/unconfirmed To update the patient's code status, place a code status order. Do not modify or discontinue any currently active code status orders. Care Teams Automation Engineering Technician Relationship Specialty Start Date End Date Raquel Jennings NP PCP - General Gastroenterology 04/16/25
== END 2025-04-26 14:53 | disposition home or self-care (01) ==
LOC: HO.HMCFM 12:46
PROVIDERS: PCP Nurse Practitioner Family; Visit Provider Nurse Practitioner Family
DX: N83.201 Unspecified ovarian cyst, right side (principal); K42.9 Umbilical hernia without obstruction or gangrene; Z71.2 Person consulting for explanation of examination or test findings; R16.1 Splenomegaly, not elsewhere classified; D73.89 Other diseases of spleen; Q89.1 Congenital malformations of adrenal gland; R59.0 Localized enlarged lymph nodes; N28.1 Cyst of kidney, acquired; N20.0 Calculus of kidney

== ENCOUNTER 2025-04-27 14:54 | Outpatient (REF) | payer OTHER, SELFPAY | END 2025-04-27 14:55 | disposition home or self-care (01) | LOC: HO.LNP 14:54 | PROVIDERS: PCP Nurse Practitioner Family; Visit Provider Obstetrics & Gynecology | DX: Z01.419 Encounter for gynecological examination (general) (routine) without abnormal findings (principal); N83.201 Unspecified ovarian cyst, right side; Z12.31 Encounter for screening mammogram for malignant neoplasm of breast | CPT/HCPCS: 87626; 88175 ==

== ENCOUNTER 2025-04-27 14:54 | Outpatient (AMB) | payer OTHER, SELFPAY ==
--- NOTE | 2025-04-27 14:55 | A.OFFVIS_ITS ---
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 The patient has no symptoms no pelvic pain and or pressure Last co testing and screening mammogram more than 8 years ago Last colonoscopy few months ago status post polypectomy benign finding, per patient, no records available [facility] Medical History IBS (irritable bowel syndrome) Pulmonary embolism (~2017) Surgical History History of colonoscopy (~2024) Family History Mother Asthma Father HTN (hypertension) Diabetes Maternal Grandmother HTN (hypertension) Paternal Grandmother Diabetes Maternal Grandfather Diabetes Social History Household Members: Spouse and Children Housing: House Are you a primary critical care nurse specialist to a significant other at home: No Do you presently have visiting nurse or other home services: No Alcohol intake: never Patient Tobacco Use Status: Never used Tobacco e-Cigarette/Vaping Use: Never Used Second Hand Smoke Exposure: No service: No Current occupational status: unemployed Cognitive needs: No Hearing needs: No Vision needs: Yes (wear glasses) Review of Systems Const All systems reviewed & are unremarkable except as noted in HPI and below Card Reports as per HPI Resp Reports as per HPI GI Reports as per HPI and Reports no additional complaints Reports as per HPI Physical Exam Vital Signs: Last Vital Signs BP 128/88 04/27/25 14:56 BMI result Body Mass Index 31.6 Const General: cooperative, healthy appearing and comfortable Chest Chest palpation & inspection: normal inspection of the chest and normal palpation of entire chest wall Breast/axilla inspection: normal inspection of the breasts and normal inspection of the axillae Breast/axilla palpation: normal palpation of the breasts, normal palpation of the axillae and no axillary lymphadenopathy Resp Effort & Inspection: normal respiratory effort Auscultation: clear to auscultation bilaterally Percussion: percussion normal Cardio Palpation: normal PMI Rate: regular rate Rhythm: regular rhythm Heart sounds: no murmurs and no rubs Peripheral pulses: Peripheral pulses 2+ throughout GI Inspection: Yes normal to inspection Palpation (GI): Soft to palpation, nontender, no guarding, not rigid and No hepatosplenomegaly present Percussion: Yes normal to percussion Auscultation: normal bowel sounds Rectal Exam - Female: deferred General: Yes bladder normal to palpation External Female Exam: No lesion Speculum Exam - Vagina: normal appearance of the vagina, normal palpation, normal vaginal discharge and not erythematous Speculum Exam - Cervix: normal appearance of the cervix and normal palpation Bimanual exam- vagina & uterus: normal bimanual exam, normal palpation, uterine size normal, bladder normal to palpation, consistency normal and normal palpation Bimanual Exam- Adnexa, other: normal adnexae, no masses and no tenderness Assessment & Plan Assessment & Plan (1) Right ovarian cyst: Onset Date: ~02/2025 Code(s): N83.201 - Unspecified ovarian cyst, right side Category: Medical Plan: Discussed with the patient the findings on CT scan, pelvic ultrasound ordered. Co testing done, screening mammogram ordered Instructions given the patient to schedule a follow-up appointment within 1-2 weeks. Orders: Orders MM tomosynthesis screening BI Today Z12.31 - Encounter for screening mammogram for malignant neoplasm of breast Coding Level of Care Code New Pt Level 3 (31804) Diagnoses Right ovarian cyst N83.201
[2025-04-27 14:56] VITALS: BP 128/88; BMI 31.6
--- OUTSIDE RECORDS SUMMARY | 2025-04-27 16:00 | XMS_ITS | Clinical Summary ---
Author Organization [place] [address] [facility] Address [address] [place] [address] Phone Care Team Providers Care Travel Writer Name Role Phone Giovanni Jenningsothy Jane [employer] S[employer]OL MANAGER Primary Care Provider Brendai labtyree Allergies No [...] [address] [place] [address] Julia Chou MA Results 03/11/2025 9:20 AM EDT Office Visit Gastroenterology - [address] [place] [phone] Raquel Jennings, ADRIAN Iron deficiency anemia due to chronic blood loss (Primary Dx); Adenomatous polyp of sigmoid colon 03/11/2025 Telephone Gastroenterology - [address] [phone] Tenzin Paula MD 03/09/2025 Telephone Gastroenterology - [address] [phone] Julia Chou MA Results 03/04/2025 3:05 PM EDT Anesthesia Event [facility] Endoscopy [address] [place] [address] Bolivar Robles MD Kriz, Petra, MD 03/03/2025 8:54 PM EDT - 03/05/2025 5:45 PM EDT Hospital Encounter [facility] Urology Unit [address] [place] [address] Serina Lyons DO Jones, Christopher, MD Kela, Kashyap Devendrabhai, MD Rectal bleeding (Primary Dx); Colonoscopy causing post-procedural bleeding Discharge Disposition: Home or Self Care 03/03/2025 9:09 AM EDT Anesthesia Event [facility] Endoscopy [address] [place] [address] Himanshu Nicole DO 03/03/2025 8:30 AM EDT - 03/03/2025 11:59 PM EDT Hospital Encounter [facility] Endoscopy [address] [place] [address] Tenzin Paula MD Elliott, Barbara J, CRNA [...] Endomysial antibody, IgA (04/16/2025 8:37 AM EDT) [facility] Endomysial IgA Negative Negative 04/18/2025 12:41 PM EDT [facility] Blood Venous blood specimen / Unknown Venipuncture / Unknown 04/16/2025 8:37 AM EDT 04/16/2025 8:37 AM EDT us Raquel Jennings [employer] S[employer]OL MANAGER LAB BLOOD ORDERABLES Final Re sult [facility] [address] [place] [address], [place] [phone] * (ABNORMAL) CBC auto differential (04/16/2025 8:37 AM EDT) Only the most recent of3 resultswithin the time period is included. [facility] WBC 3.8(L) 4.8 - 10.8 K/mcL LAB HEMETOLOGY METHOD 04/16/2025 11:50 AM EDT [facility] RBC 4.40 3.80 - 4.80 M/mcL LAB HEMETOLOGY METHOD 04/16/2025 11:50 AM EDT [facility] Hemoglobin 13.1 11.5 - 16.0 g/dL LAB HEMETOLOGY METHOD 04/16/2025 11:50 AM EDT [facility] Hematocrit 42.3 35.0 - 47.0 % LAB HEMETOLOGY METHOD 04/16/2025 11:50 AM EDT [facility] MCV 95.3 79.0 - 98.0 FL LAB HEMETOLOGY METHOD 04/16/2025 11:50 AM EDT [facility] MCH 29.5 27.0 - 32.0 pcg LAB HEMETOLOGY METHOD 04/16/2025 11:50 AM [facility] MCHC 31.0(L) 32.0 - 37.0 g/dL LAB HEMETOLOGY METHOD 04/16/2025 11:50 AM [facility] RDW 13.8 11.0 - 15.0 % LAB HEMETOLOGY METHOD 04/16/2025 11:50 AM [facility] Platelets 183 130 - 400 K/mcL LAB HEMETOLOGY METHOD 04/16/2025 11:50 AM [facility] MPV 10.8 7.0 - 11.0 PA LAB HEMETOLOGY METHOD 04/16/2025 11:50 AM [facility] NRBC 0.0 <1.0 % LAB HEMETOLOGY METHOD 04/16/2025 11:50 AM [facility] NRBC Absolute 0.00 <0.10 K/mcL LAB HEMETOLOGY METHOD 04/16/2025 11:50 AM [facility] Neutrophils Relative 48.2 % LAB HEMETOLOGY METHOD 04/16/2025 11:50 AM [facility] Lymphocytes Relative 39.2 % LAB HEMETOLOGY METHOD 04/16/2025 11:50 AM [facility] Monocytes Relative 8.3 % LAB HEMETOLOGY METHOD 04/16/2025 11:50 AM [facility] Eosinophils Relative 3.5 % LAB HEMETOLOGY METHOD 04/16/2025 11:50 AM [facility] Basophils Relative 0.8 % LAB HEMETOLOGY METHOD 04/16/2025 11:50 AM [facility] Immature Granulocytes Relative 0.0 % LAB HEMETOLOGY METHOD 04/16/2025 11:50 AM EDT [facility] Neutrophils Absolute 1.81 1.50 - 7.00 K/mcL LAB HEMETOLOGY METHOD 04/16/2025 11:50 AM EDT [facility] Lymphocytes Absolute 1.47 1.00 - 5.00 K/mcL LAB HEMETOLOGY METHOD 04/16/2025 11:50 AM EDT [facility] Monocytes Absolute 0.31 0.20 - 1.00 K/mcL LAB HEMETOLOGY METHOD 04/16/2025 11:50 AM EDT [facility] Eosinophils Absolute 0.13 0.00 - 0.50 K/mcL LAB HEMETOLOGY METHOD 04/16/2025 11:50 AM EDT [facility] Basophils Absolute 0.03 0.00 - 0.20 K/mcL LAB HEMETOLOGY METHOD 04/16/2025 11:50 AM EDT [facility] Immature Granulocytes Absolute 0.00 0.00 - 0.03 K/mcL LAB HEMETOLOGY METHOD 04/16/2025 11:50 AM EDT [facility] Blood Venous blood specimen / Unknown Venipuncture / Unknown 04/16/2025 8:37 AM EDT 04/16/2025 8:37 AM EDT Raquel Jennings [employer] S[employer]OL MANAGER LAB BLOOD ORDERABLES Final Re sult [facility] [address] [place] [address], * Tissue transglutaminase, IgA (04/16/2025 8:37 AM EDT) Tissue Transglutaminase Ab, IgA Quant 1 <4 unit/mL LAB CHEMISTRY METHOD 04/21/2025 11:18 AM EDT [facility] Tissue Transglutaminase Ab, IgA Negative Negative LAB CHEMISTRY METHOD 04/21/2025 11:18 AM EDT [facility] Blood Venous blood specimen / Unknown Venipuncture / Unknown 04/16/2025 8:37 AM EDT 04/16/2025 8:37 AM EDT us Raquel Jennings [employer] S[employer] MANAGER LAB BLOOD ORDERABLES Final Re sult [facility] [address] [place] [address], [place] [phone] * (ABNORMAL) Comprehensive metabolic panel (04/16/2025 8:37 AM EDT) Only the most recent of2 resultswithin the time period is included. Sodium 141 133 - 145 mmol/L LAB CHEMISTRY METHOD 04/16/2025 12:04 PM [facility] Potassium 5.2 3.5 - 5.5 mmol/L LAB CHEMISTRY METHOD 04/16/2025 12:04 PM [facility] Chloride 110 96 - 110 mmol/L LAB CHEMISTRY METHOD 04/16/2025 12:04 PM [facility] CO2 30 21 - 32 mmol/L LAB CHEMISTRY METHOD 04/16/2025 12:04 PM [facility] Anion Gap 1(L) 3 - 11 LAB CHEMISTRY METHOD 04/16/2025 12:04 PM [facility] Glucose 95 70 - 100 mg/dL LAB CHEMISTRY METHOD 04/16/2025 12:04 PM [facility] BUN 15 5 - 25 mg/dL LAB CHEMISTRY METHOD 04/16/2025 12:04 PM [facility] Creatinine 0.66 0.50 - 1.10 mg/dL LAB CHEMISTRY METHOD 04/16/2025 12:04 PM [facility] eGFR 101 >=60 mL/min/1. 73m2 LAB CHEMISTRY METHOD 04/16/2025 12:04 PM [facility] Comment:Calculation based on the Chronic Kidney Disease Epidemiology Collaboration (CKD-EPI) equation refit without adjustment for race. BUN/Creatinine Ratio 22.7 LAB CHEMISTRY METHOD 04/16/2025 12:04 PM [facility] Calcium 9.8 8.5 - 10.5 mg/dL LAB CHEMISTRY METHOD 04/16/2025 12:04 PM [facility] AST (SGOT) 14 10 - 42 unit/L LAB CHEMISTRY METHOD 04/16/2025 12:04 PM [facility] ALT (SGPT) 25 10 - 60 unit/L LAB CHEMISTRY METHOD 04/16/2025 12:04 PM [facility] Alkaline Phosphatase 67 42 - 121 unit/L LAB CHEMISTRY METHOD 04/16/2025 12:04 PM [facility] Total Protein 7.7 6.0 - 8.0 g/dL LAB CHEMISTRY METHOD 04/16/2025 12:04 PM [facility] Albumin 4.0 3.2 - 5.0 g/dL LAB CHEMISTRY METHOD 04/16/2025 12:04 PM [facility] Total Bilirubin 0.5 0.0 - 1.4 mg/dL LAB CHEMISTRY METHOD 04/16/2025 12:04 PM [facility] Blood Venous blood specimen / Unknown Venipuncture / Unknown 04/16/2025 8:37 AM EDT 04/16/2025 8:37 AM EDT us Raquel Jennings NP LAB BLOOD ORDERABLES Final Re sult [facility] [address] [place] [address], * (ABNORMAL) Hemoglobin and hematocrit (03/05/2025 7:02 AM EDT) Only the most recent of4 resultswithin the time period is included. Hemoglobin 9.9(L) 11.5 - 16.0 g/dL LAB HEMETOLOGY METHOD 03/05/2025 7:30 AM EDT [facility] Hematocrit 32.5(L) 35.0 - 47.0 % LAB HEMETOLOGY METHOD 03/05/2025 7:30 AM EDT [facility] Blood Venous blood specimen / Unknown Venipuncture / Unknown 03/05/2025 7:02 AM EDT 03/05/2025 7:21 AM EDT us Richardson Luna MD LAB BLOOD ORDERABLE S Final Result Performing Organization Address [facility]/State/ZIP Co de Phone Number [facility] [address] [place] [address], [place] [phone] * SST tube (03/05/2025 7:00 AM EDT) Pathologist [facility] Extra Tube Hold for add-ons. 03/05/2025 9:01 AM EDT [facility] Comment:Auto resulted. Blood Venous blood specimen / Unknown 03/05/2025 7:00 AM EDT 03/05/2025 7:22 AM EDT us Richardson Luna MD LAB BLOOD ORDERABLE S Final Result Performing Organization Address City/[facility]/ZIP Co de Phone Number [facility] [address] [place] [address], [place] [phone] * FLEXIBLE SIGMOIDOSCOPY Anesthesia - MAC; [facility] ENDOSCOPY (03/04/2025 3:35 PM EDT) Anatomical Region Laterality Modality Endoscopy 03/04/2025 3:01 PM EDT Impressions 03/04/2025 3:41 PM EDT - One 12 mm polyp in the distal sigmoid colon. Clip (MR conditional) was placed. [employer] group leader: [employer]. - One 20 mm polyp in the mid sigmoid colon, removed with a hot snare. Resected and retrieved. Clips (MR conditional) were placed. Clip [employer] group leader: [employer]. - One 20 mm polyp in the proximal sigmoid colon, removed with a hot snare. Resected and retrieved. Clip (MR conditional) was placed. Clip [employer] group leader: [employer]. Recommendation: - Continue present medications. - Repeat flexible sigmoidoscopy in 3 months for surveillance. Narrative 03/04/2025 3:41 PM EDT [facility] Patient Name: Alpesh Macias Procedure Date: [...] clip was successfully placed (MR conditional). [employer]ip [employer] group leader: [employer]. There was no bleeding at the [...] clips were successfully placed (MR conditional). [employer]ip [employer] group leader: [employer]. There was no bleeding at the [...] clip was successfully placed (MR conditional). Clip [employer] group leader: [employer]. There was no bleeding at the end of the procedure. Procedure Code(s): --- Professional --- 04693, Sigmoidoscopy, flexible; with removal of tumor(s), polyp(s), or other lesion(s) by snare technique Diagnosis Code(s): --- Professional --- D12.5, Benign neoplasm of sigmoid colon K62.5, Hemorrhage of anus and rectum K91.840, Postprocedural hemorrhage of a digestive system organ or structure following a digestive system procedure CPT copyright 2020 [employer] [employer]. All rights reserved. The codes documented in this report are preliminary and upon adjuster leader review may be revised to meet current compliance requirements. Tenzin aPula MD 03/04/2025 3:41:26 PM This report has been signed electronically.Tenzin Paula MD Number of Addenda: 0 Note Initiated On: 03/04/2025 3:01 PM Scope In: Scope Out: Endoscopy Department at [facility] - [address] [place] [phone] Procedure Note Tenzin Paula MD - 03/04/2025 [facility] GI Patient Name: Alpesh Macias Procedure Date: [...] hemostatic clip wassuccessfully placed (MR conditional). Clip [employer] group leader: [employer]. There was no bleeding at the end [...] twohemostatic clips were successfully placed (MR conditional).Clip [employer] group leader: [employer]. There was nobleeding at the end [...] clip was successfully placed (MR conditional). Clip [employer] group leader: [employer]. There was no bleeding at the end of the procedure. Procedure Code(s): --- Professional --- 48479, Sigmoidoscopy, flexible; with removal of tumor(s), polyp(s), or other lesion(s) by snare technique Diagnosis Code(s): --- Professional --- D12.5, Benign neoplasm of sigmoid colon K62.5, Hemorrhage of anus and rectum K91.840, Postprocedural hemorrhage of a digestive system organ or structure following a digestivesystem procedure CPT copyright 2020 [employer] [employer]. All rights reserved. The codes documented in this report are preliminary and upon adjuster leader reviewmay be revised to meet current compliance requirements. Tenzin Paula MD 03/04/2025 3:41:26 PM This report has been signed electronically.Tenzin Paula MD Number of Addenda: 0 Note Initiated On: 03/04/2025 3:01 PM Scope In: Scope Out: Endoscopy Department at [address] [phone] IMPRESSION: - One 12 mm polyp in the distal sigmoid colon. Clip (MR conditional) was placed. Clip [employer] group leader:[employer]. - One 20 mm polyp in the mid sigmoid colon, removed with a hot snare. Resected and retrieved. Clips (MR conditional) were placed. Clip [employer] group leader: [employer]. - One 20 mm polyp in the proximal sigmoid colon, removed with a hot snare. Resected and retrieved.Clip (MR conditional) was placed. Clip [employer] group leader:[employer]. Recommendation: - Continue present medications. - [...] the patient's recent polypectomy (see prior report, [id number]). 03/08/2025 9:11 AM EDT [facility] Clinical Information Completion of polypectomy from yesterday 03/08/2025 9:11 AM EDT [facility] Gross Description A. Large Intestine, [...] one slide. LISA 03/08/2025 9:11 AM T [facility] Disclaimer Unless otherwise specified, all tissue is 10% NB formalin fixed and paraffin embedded. 03/08/2025 9:11 AM T [facility] Tissue Sigmoid colon structure / Unknown 03/04/2025 3:28 PM EDT 03/04/2025 4:01 PM EDT Tenzin Paula MD LAB PATHOLOGY ORDERABLES Fi nal Result [facility] [address] [place] [address], * (ABNORMAL) Basic metabolic panel (03/04/2025 5:39 AM EDT) Sodium 139 133 - 145 mmol/L LAB CHEMISTRY METHOD 03/04/2025 6:19 AM T [facility] Potassium 4.2 3.5 - 5.5 mmol/L LAB CHEMISTRY METHOD 03/04/2025 6:19 AM [facility] Chloride 108 96 - 110 mmol/L LAB CHEMISTRY METHOD 03/04/2025 6:19 AM T [facility] CO2 26 21 - 32 mmol/L LAB CHEMISTRY METHOD 03/04/2025 6:19 AM [facility] Anion Gap 5 3 - 11 LAB CHEMISTRY METHOD 03/04/2025 6:19 AM [facility] Glucose 105(H) 70 - 100 mg/dL LAB CHEMISTRY METHOD 03/04/2025 6:19 AM [facility] BUN 11 5 - 25 mg/dL LAB CHEMISTRY METHOD 03/04/2025 6:19 AM [facility] Creatinine 0.58 0.50 - 1.10 mg/dL LAB CHEMISTRY METHOD 03/04/2025 6:19 AM [facility] eGFR 104 >=60 mL/min/1. 73m2 LAB CHEMISTRY METHOD 03/04/2025 6:19 AM [facility] Comment:Calculation based on the Chronic Kidney Disease Epidemiology Collaboration (CKD-EPI) equation refit without adjustment for race. BUN/Creatinine Ratio 19.0 LAB CHEMISTRY METHOD 03/04/2025 6:19 AM [facility] Calcium 9.5 8.5 - 10.5 mg/dL LAB CHEMISTRY METHOD 03/04/2025 6:19 AM [facility] Blood Venous blood specimen / Unknown Venipuncture / Unknown 03/04/2025 5:39 AM EDT 03/04/2025 5:43 AM EDT us Saeed Mariee MD LAB BLOOD ORDERABLES Final Result [facility] [address] [place] [address], * CT Angio Abdomen Pelvis wo and/or [...] ABO Group A 03/03/2025 8:37 PM EDT [facility] Rh Type Positive 03/03/2025 8:37 PM EDT [facility] Antibody Screen Negative 03/03/2025 8:37 PM EDT [facility] Blood Venous blood specimen / Unknown Venipuncture / Unknown 03/03/2025 7:38 PM EDT 03/03/2025 7:59 PM EDT us Serina Lyons DO LAB BLOOD BANK TEST ORDER SHAHZAD Final Result [facility]) [facility] [address] [place] [address], [place] [phone] * COLONOSCOPY Anesthesia - MAC; [facility] ENDOSCOPY (03/03/2025 10:15 AM EDT) Anatomical Region [...] need surgery Narrative 03/03/2025 10:09 AM EDT [facility] Patient Name: Alpesh Macias Procedure Date: [...] retroflexion views. Procedure Code(s): --- Professional --- 12386, Colonoscopy, flexible; with removal of tumor(s), polyp(s), or other lesion(s) by snare technique 33655, 59, Colonoscopy, flexible; with biopsy, single or multiple Diagnosis Code(s): --- Professional --- K92.2, Gastrointestinal hemorrhage, unspecified D12.5, Benign neoplasm of sigmoid colon D50.0, Iron deficiency anemia secondary to blood loss (chronic) CPT copyright 2020 [employer] [employer]. All rights reserved. The codes documented in this report are preliminary and upon adjuster leader review may be revised to meet current compliance requirements. Tenzin Paula MD 03/03/2025 10:09:14 AM This report has been signed electronically.Tenzin Paula MD Number of Addenda: 0 Note Initiated On: 03/03/2025 8:46 AM Scope In: Scope Out: Endoscopy Department at [facility] - [address] [place] [phone] Procedure Note Tenzin Paula MD - 03/03/2025 [facility] GI Patient Name: Alpesh Macias Procedure Date: [...] retroflexion views. 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 All rights reserved. The codes documented in this report are preliminary and upon adjuster leader reviewmay be revised to meet current compliance requirements. Tenzin Paula MD 03/03/2025 10:09:14 AM This report has been signed electronically.Tenzin Paula MD Number of Addenda: 0 Note Initiated On: 03/03/2025 8:46 AM Scope In: Scope Out: Endoscopy Department at [facility] - [address] [place] [phone] IMPRESSION: - Blood in the recto-sigmoid colon. [...] al Result * EGD Anesthesia - MAC; [facility] ENDOSCOPY (03/03/2025 10:15 AM EDT) Anatomical Region Laterality Modality Endoscopy 03/03/2025 10:0 9 AM EDT Impressions 03/03/2025 10:14 AM EDT - Normal esophagus. - Normal stomach. - Normal examined duodenum. Biopsied. Recommendation: - Await pathology results. Narrative 03/03/2025 10:14 AM EDT [facility] Patient Name: Alpesh Macias Procedure Date: [...] for histology. Procedure Code(s): --- Professional --- 93307, Esophagogastroduodenoscopy, flexible, transoral; with biopsy, single or multiple Diagnosis Code(s): --- Professional --- D50.0, Iron deficiency anemia secondary to blood loss (chronic) CPT copyright 2020 [employer] [place] [employer]. All rights reserved. The codes documented in this report are preliminary and upon adjuster leader review may be revised to meet current compliance requirements. Tenzin Paula MD 03/03/2025 10:14:33 AM This report has been signed electronically.Tenzin Paula MD Number of Addenda: 0 Note Initiated On: 03/03/2025 10:09 AM Scope In: Scope Out: Endoscopy Department at [facility] - [address] [place] [phone] Procedure Note Tenzin Paula MD - 03/03/2025 [facility] GI Patient Name: Alpesh Macias Procedure Date: [...] for histology. 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 All rights reserved. The codes documented in this report are preliminary and upon adjuster leader reviewmay be revised to meet current compliance requirements. Tenzin Paula MD 03/03/2025 10:14:33 AM This report has been signed electronically.Tenzin Paula MD Number of Addenda: 0 Note Initiated On: 03/03/2025 10:09 AM Scope In: Scope Out: Endoscopy Department at [facility] - [address] [place] [phone] IMPRESSION: - Normal esophagus. - Normal stomach. [...] currently active code status orders. Care Teams Travel Writer Relationship Specialty Start Date End Date Raquel Jennings NP PCP - General Gastroenterology 04/16/25
== END 2025-04-27 15:37 | disposition home or self-care (01) ==
LOC: HO.HWS 14:55
PROVIDERS: PCP Nurse Practitioner Family; Visit Provider Obstetrics & Gynecology
DX: N83.201 Unspecified ovarian cyst, right side (principal)
CPT/HCPCS: 99203

== ENCOUNTER 2025-04-28 08:46 | Outpatient (REF) | payer OTHER, SELFPAY ==
--- NOTE | ~2025-04-28 | US_ITS ---
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 TECHNIQUE: Transabdominal and endovaginal real-time 2D meraz-scale ultrasound was performed. FINDINGS: Uterus: The uterus is normal in size, measuring 6.0 x 2.9 x 3.1 cm. Myometrium has a normal echotexture. No fibroids are identified. Endometrium: The endometrial stripe measures 2 mm in thickness. Right ovary: The right ovary measures 3.2 x 1.8 x 3.1 cm. The right ovary is normal in size and echotexture. There is a 2.7 x 1.6 x 2.8 cm cyst. Left ovary: The left ovary measures 1.1 x 1.2 x 0.9 cm. The left ovary is normal in size and echotexture. There is a 7 x 8 x 6 mm paraovarian cyst. Pelvic fluid: none. US/US pelvic and transvaginal IMPRESSION: 1. 2.7 x 1.6 x 2.8 cm right ovarian cyst. 2. 7 x 8 x 6 mm left paraovarian cyst. Electronically signed by: Donald Trevizo MD 04/28/2025 10:40 AM EDT
--- OUTSIDE RECORDS SUMMARY | 2025-04-28 09:06 | XMS_ITS | Clinical Summary ---
Author Organization [place] [address] [facility] Address [address] [place] [address] Phone Care Team Providers Care Transmission Rebuilder Name Role Phone Giovanni Jenningsothy Jane SUPPORT CLERK Primary Care Provider Brendai labtyree Allergies No [...] [address] [place] [address] Julia Chou MA Results 03/11/2025 9:20 AM EDT Office Visit Gastroenterology - [address] [place] [phone] Raquel Jennings, ADRIAN Iron deficiency anemia due to chronic blood loss (Primary Dx); Adenomatous polyp of sigmoid colon 03/11/2025 Telephone Gastroenterology - [address] [phone] Tenzin Paula MD 03/09/2025 Telephone Gastroenterology - [address] [phone] Julia Chou MA Results 03/04/2025 3:05 PM EDT Anesthesia Event [facility] Endoscopy [address] [place] [address] Bolivar Robles MD Kriz, Petra, MD 03/03/2025 8:54 PM EDT - 03/05/2025 5:45 PM EDT Hospital Encounter [facility] Urology Unit [address] [place] [address] Serina Lyons DO Jones, Christopher, MD Kela, Kashyap Devendrabhai, MD Rectal bleeding (Primary Dx); Colonoscopy causing post-procedural bleeding Discharge Disposition: Home or Self Care 03/03/2025 9:09 AM EDT Anesthesia Event [facility] Endoscopy [address] [place] [address] Himanshu Nicole DO 03/03/2025 8:30 AM EDT - 03/03/2025 11:59 PM EDT Hospital Encounter [facility] Endoscopy [address] [place] [address] Tenzin Paula MD Elliott, Barbara J, CRNA [...] Endomysial antibody, IgA (04/16/2025 8:37 AM EDT) [facility] Endomysial IgA Negative Negative 04/18/2025 12:41 PM EDT [facility] Blood Venous blood specimen / Unknown Venipuncture / Unknown 04/16/2025 8:37 AM EDT 04/16/2025 8:37 AM EDT us Raquel Jennings SUPPORT CLERK LAB BLOOD ORDERABLES Final Re sult [facility] [address] [place] [address], [place] [phone] * (ABNORMAL) CBC auto differential (04/16/2025 8:37 AM EDT) Only the most recent of3 resultswithin the time period is included. [facility] WBC 3.8(L) 4.8 - 10.8 K/mcL LAB HEMETOLOGY METHOD 04/16/2025 11:50 AM EDT [facility] RBC 4.40 3.80 - 4.80 M/mcL LAB HEMETOLOGY METHOD 04/16/2025 11:50 AM EDT [facility] Hemoglobin 13.1 11.5 - 16.0 g/dL LAB HEMETOLOGY METHOD 04/16/2025 11:50 AM EDT [facility] Hematocrit 42.3 35.0 - 47.0 % LAB HEMETOLOGY METHOD 04/16/2025 11:50 AM EDT [facility] MCV 95.3 79.0 - 98.0 FL LAB HEMETOLOGY METHOD 04/16/2025 11:50 AM EDT [facility] MCH 29.5 27.0 - 32.0 pcg LAB HEMETOLOGY METHOD 04/16/2025 11:50 AM [facility] MCHC 31.0(L) 32.0 - 37.0 g/dL LAB HEMETOLOGY METHOD 04/16/2025 11:50 AM [facility] RDW 13.8 11.0 - 15.0 % LAB HEMETOLOGY METHOD 04/16/2025 11:50 AM [facility] Platelets 183 130 - 400 K/mcL LAB HEMETOLOGY METHOD 04/16/2025 11:50 AM [facility] MPV 10.8 7.0 - 11.0 [place] LAB HEMETOLOGY METHOD 04/16/2025 11:50 AM [facility] NRBC 0.0 <1.0 % LAB HEMETOLOGY METHOD 04/16/2025 11:50 AM [facility] NRBC Absolute 0.00 <0.10 K/mcL LAB HEMETOLOGY METHOD 04/16/2025 11:50 AM [facility] Neutrophils Relative 48.2 % LAB HEMETOLOGY METHOD 04/16/2025 11:50 AM [facility] Lymphocytes Relative 39.2 % LAB HEMETOLOGY METHOD 04/16/2025 11:50 AM [facility] Monocytes Relative 8.3 % LAB HEMETOLOGY METHOD 04/16/2025 11:50 AM [facility] Eosinophils Relative 3.5 % LAB HEMETOLOGY METHOD 04/16/2025 11:50 AM [facility] Basophils Relative 0.8 % LAB HEMETOLOGY METHOD 04/16/2025 11:50 AM [facility] Immature Granulocytes Relative 0.0 % LAB HEMETOLOGY METHOD 04/16/2025 11:50 AM EDT [facility] Neutrophils Absolute 1.81 1.50 - 7.00 K/mcL LAB HEMETOLOGY METHOD 04/16/2025 11:50 AM EDT [facility] Lymphocytes Absolute 1.47 1.00 - 5.00 K/mcL LAB HEMETOLOGY METHOD 04/16/2025 11:50 AM EDT [facility] Monocytes Absolute 0.31 0.20 - 1.00 K/mcL LAB HEMETOLOGY METHOD 04/16/2025 11:50 AM EDT [facility] Eosinophils Absolute 0.13 0.00 - 0.50 K/mcL LAB HEMETOLOGY METHOD 04/16/2025 11:50 AM EDT [facility] Basophils Absolute 0.03 0.00 - 0.20 K/mcL LAB HEMETOLOGY METHOD 04/16/2025 11:50 AM EDT [facility] Immature Granulocytes Absolute 0.00 0.00 - 0.03 K/mcL LAB HEMETOLOGY METHOD 04/16/2025 11:50 AM EDT [facility] Blood Venous blood specimen / Unknown Venipuncture / Unknown 04/16/2025 8:37 AM EDT 04/16/2025 8:37 AM EDT Raquel Jennings SUPPORT CLERK LAB BLOOD ORDERABLES Final Re sult [facility] [address] [place] [address], * Tissue transglutaminase, IgA (04/16/2025 8:37 AM EDT) Tissue Transglutaminase Ab, IgA Quant 1 <4 unit/mL LAB CHEMISTRY METHOD 04/21/2025 11:18 AM EDT [facility] Tissue Transglutaminase Ab, IgA Negative Negative LAB CHEMISTRY METHOD 04/21/2025 11:18 AM EDT [facility] Blood Venous blood specimen / Unknown Venipuncture / Unknown 04/16/2025 8:37 AM EDT 04/16/2025 8:37 AM EDT us Raquel Jennings SUPPORT CLERK LAB BLOOD ORDERABLES Final Re sult [facility] [address] [place] [address], [place] [phone] * (ABNORMAL) Comprehensive metabolic panel (04/16/2025 8:37 AM EDT) Only the most recent of2 resultswithin the time period is included. Sodium 141 133 - 145 mmol/L LAB CHEMISTRY METHOD 04/16/2025 12:04 PM [facility] Potassium 5.2 3.5 - 5.5 mmol/L LAB CHEMISTRY METHOD 04/16/2025 12:04 PM [facility] Chloride 110 96 - 110 mmol/L LAB CHEMISTRY METHOD 04/16/2025 12:04 PM [facility] CO2 30 21 - 32 mmol/L LAB CHEMISTRY METHOD 04/16/2025 12:04 PM [facility] Anion Gap 1(L) 3 - 11 LAB CHEMISTRY METHOD 04/16/2025 12:04 PM [facility] Glucose 95 70 - 100 mg/dL LAB CHEMISTRY METHOD 04/16/2025 12:04 PM [facility] BUN 15 5 - 25 mg/dL LAB CHEMISTRY METHOD 04/16/2025 12:04 PM [facility] Creatinine 0.66 0.50 - 1.10 mg/dL LAB CHEMISTRY METHOD 04/16/2025 12:04 PM [facility] eGFR 101 >=60 mL/min/1. 73m2 LAB CHEMISTRY METHOD 04/16/2025 12:04 PM [facility] Comment:Calculation based on the Chronic Kidney Disease Epidemiology Collaboration (CKD-EPI) equation refit without adjustment for race. BUN/Creatinine Ratio 22.7 LAB CHEMISTRY METHOD 04/16/2025 12:04 PM [facility] Calcium 9.8 8.5 - 10.5 mg/dL LAB CHEMISTRY METHOD 04/16/2025 12:04 PM [facility] AST (SGOT) 14 10 - 42 unit/L LAB CHEMISTRY METHOD 04/16/2025 12:04 PM [facility] ALT (SGPT) 25 10 - 60 unit/L LAB CHEMISTRY METHOD 04/16/2025 12:04 PM [facility] Alkaline Phosphatase 67 42 - 121 unit/L LAB CHEMISTRY METHOD 04/16/2025 12:04 PM [facility] Total Protein 7.7 6.0 - 8.0 g/dL LAB CHEMISTRY METHOD 04/16/2025 12:04 PM [facility] Albumin 4.0 3.2 - 5.0 g/dL LAB CHEMISTRY METHOD 04/16/2025 12:04 PM [facility] Total Bilirubin 0.5 0.0 - 1.4 mg/dL LAB CHEMISTRY METHOD 04/16/2025 12:04 PM [facility] Blood Venous blood specimen / Unknown Venipuncture / Unknown 04/16/2025 8:37 AM EDT 04/16/2025 8:37 AM EDT us Raquel Jennings NP LAB BLOOD ORDERABLES Final Re sult [facility] [address] [place] [address], * (ABNORMAL) Hemoglobin and hematocrit (03/05/2025 7:02 AM EDT) Only the most recent of4 resultswithin the time period is included. Hemoglobin 9.9(L) 11.5 - 16.0 g/dL LAB HEMETOLOGY METHOD 03/05/2025 7:30 AM EDT [facility] Hematocrit 32.5(L) 35.0 - 47.0 % LAB HEMETOLOGY METHOD 03/05/2025 7:30 AM EDT [facility] Blood Venous blood specimen / Unknown Venipuncture / Unknown 03/05/2025 7:02 AM EDT 03/05/2025 7:21 AM EDT us Richardson Luna MD LAB BLOOD ORDERABLE S Final Result Performing Organization Address [facility]/State/ZIP Co de Phone Number [facility] [address] [place] [address], [place] [phone] * SST tube (03/05/2025 7:00 AM EDT) Pathologist [facility] Extra Tube Hold for add-ons. 03/05/2025 9:01 AM EDT [facility] Comment:Auto resulted. Blood Venous blood specimen / Unknown 03/05/2025 7:00 AM EDT 03/05/2025 7:22 AM EDT us Richardson Luna MD LAB BLOOD ORDERABLE S Final Result Performing Organization Address City/[facility]/ZIP Co de Phone Number [facility] [address] [place] [address], [place] [phone] * FLEXIBLE SIGMOIDOSCOPY Anesthesia - MAC; [facility] ENDOSCOPY (03/04/2025 3:35 PM EDT) Anatomical Region Laterality Modality Endoscopy 03/04/2025 3:01 PM EDT Impressions 03/04/2025 3:41 PM EDT - One 12 mm polyp in the distal sigmoid colon. Clip (MR conditional) was placed. Clip continuous improvement engineer: [employer]. - One 20 mm polyp in the mid sigmoid colon, removed with a hot snare. Resected and retrieved. Clips (MR conditional) were placed. Clip continuous improvement engineer: [employer]. - One 20 mm polyp in the proximal sigmoid colon, removed with a hot snare. Resected and retrieved. Clip (MR conditional) was placed. Clip continuous improvement engineer: [employer]. Recommendation: - Continue present medications. - Repeat flexible sigmoidoscopy in 3 months for surveillance. Narrative 03/04/2025 3:41 PM EDT [facility] GI Patient Name: Alpesh Macias [...] clip was successfully placed (MR conditional). Clip continuous improvement engineer: [employer]. There was no bleeding at the [...] clips were successfully placed (MR conditional). Clip continuous improvement engineer: [employer]. There was no bleeding at the [...] clip was successfully placed (MR conditional). Clip continuous improvement engineer: [employer]. There was no bleeding at the end of the procedure. Procedure Code(s): --- Professional --- 42096, Sigmoidoscopy, flexible; with removal of tumor(s), polyp(s), or other lesion(s) by snare technique Diagnosis Code(s): --- Professional --- D12.5, Benign neoplasm of sigmoid colon K62.5, Hemorrhage of anus and rectum K91.840, Postprocedural hemorrhage of a digestive system organ or structure following a digestive system procedure CPT copyright 2020 [employer]. All rights reserved. The codes documented in this report are preliminary and upon vegetable buncher review may be revised to meet current compliance requirements. Tenzin Paula MD 03/04/2025 3:41:26 PM This report has been signed electronically.Tenzin Paula MD Number of Addenda: 0 Note Initiated On: 03/04/2025 3:01 PM Scope In: Scope Out: Endoscopy Department at [facility] - [address] [place] [phone] Procedure Note Tenzin Paula MD - 03/04/2025 [facility] GI Patient Name: Alpesh Macias [...] hemostatic clip wassuccessfully placed (MR conditional). Clip continuous improvement engineer: [employer]. There was no bleeding at the end [...] twohemostatic clips were successfully placed (MR conditional).Clip continuous improvement engineer: [employer]. There was nobleeding at the end [...] clip was successfully placed (MR conditional). Clip continuous improvement engineer: [employer]. There was no bleeding at the end of the procedure. Procedure Code(s): --- Professional --- 89414, Sigmoidoscopy, flexible; with removal of tumor(s), polyp(s), or other lesion(s) by snare technique Diagnosis Code(s): --- Professional --- D12.5, Benign neoplasm of sigmoid colon K62.5, Hemorrhage of anus and rectum K91.840, Postprocedural hemorrhage of a digestive system organ or structure following a digestivesystem procedure CPT copyright 2020 [employer]. All rights reserved. The codes documented in this report are preliminary and upon vegetable buncher reviewmay be revised to meet current compliance requirements. Tenzin Paula MD 03/04/2025 3:41:26 PM This report has been signed electronically.Tenzin Paula MD Number of Addenda: 0 Note Initiated On: 03/04/2025 3:01 PM Scope In: Scope Out: Endoscopy Department at [address] [phone] IMPRESSION: - One 12 mm polyp in the distal sigmoid colon. Clip (MR conditional) was placed. Clip continuous improvement engineer:[employer]. - One 20 mm polyp in the mid sigmoid colon, removed with a hot snare. Resected and retrieved. Clips (MR conditional) were placed. Clip continuous improvement engineer: [employer]. - One 20 mm polyp in the proximal sigmoid colon, removed with a hot snare. Resected and retrieved.Clip (MR conditional) was placed. Clip continuous improvement engineer:[employer]. Recommendation: - Continue present medications. - [...] the patient's recent polypectomy (see prior report, [id number]). 03/08/2025 9:11 AM EDT [facility] Clinical Information Completion of polypectomy from yesterday 03/08/2025 9:11 AM EDT [facility] Gross Description A. Large Intestine, [...] one slide. LISA 03/08/2025 9:11 AM T [facility] Disclaimer Unless otherwise specified, all tissue is 10% NB formalin fixed and paraffin embedded. 03/08/2025 9:11 AM T [facility] Tissue Sigmoid colon structure / Unknown 03/04/2025 3:28 PM EDT 03/04/2025 4:01 PM EDT Tenzin Paula MD LAB PATHOLOGY ORDERABLES Fi nal Result [facility] [address] [place] [address], * (ABNORMAL) Basic metabolic panel (03/04/2025 5:39 AM EDT) Sodium 139 133 - 145 mmol/L LAB CHEMISTRY METHOD 03/04/2025 6:19 AM T [facility] Potassium 4.2 3.5 - 5.5 mmol/L LAB CHEMISTRY METHOD 03/04/2025 6:19 AM [facility] Chloride 108 96 - 110 mmol/L LAB CHEMISTRY METHOD 03/04/2025 6:19 AM T [facility] CO2 26 21 - 32 mmol/L LAB CHEMISTRY METHOD 03/04/2025 6:19 AM [facility] Anion Gap 5 3 - 11 LAB CHEMISTRY METHOD 03/04/2025 6:19 AM [facility] Glucose 105(H) 70 - 100 mg/dL LAB CHEMISTRY METHOD 03/04/2025 6:19 AM [facility] BUN 11 5 - 25 mg/dL LAB CHEMISTRY METHOD 03/04/2025 6:19 AM [facility] Creatinine 0.58 0.50 - 1.10 mg/dL LAB CHEMISTRY METHOD 03/04/2025 6:19 AM [facility] eGFR 104 >=60 mL/min/1. 73m2 LAB CHEMISTRY METHOD 03/04/2025 6:19 AM [facility] Comment:Calculation based on the Chronic Kidney Disease Epidemiology Collaboration (CKD-EPI) equation refit without adjustment for race. BUN/Creatinine Ratio 19.0 LAB CHEMISTRY METHOD 03/04/2025 6:19 AM [facility] Calcium 9.5 8.5 - 10.5 mg/dL LAB CHEMISTRY METHOD 03/04/2025 6:19 AM [facility] Blood Venous blood specimen / Unknown Venipuncture / Unknown 03/04/2025 5:39 AM EDT 03/04/2025 5:43 AM EDT us Saeed Mariee MD LAB BLOOD ORDERABLES Final Result [facility] [address] [place] [address], * CT Angio Abdomen Pelvis wo and/or [...] ABO Group A 03/03/2025 8:37 PM EDT [facility] Rh Type Positive 03/03/2025 8:37 PM EDT [facility] Antibody Screen Negative 03/03/2025 8:37 PM EDT [facility] Blood Venous blood specimen / Unknown Venipuncture / Unknown 03/03/2025 7:38 PM EDT 03/03/2025 7:59 PM EDT us Serina Lyons DO LAB BLOOD BANK TEST ORDER SHAHZAD Final Result [facility] [address] [place] [address], [place] [phone] * COLONOSCOPY Anesthesia - MAC; [facility] ENDOSCOPY (03/03/2025 10:15 AM EDT) Anatomical Region [...] need surgery Narrative 03/03/2025 10:09 AM EDT [facility] GI Patient Name: Alpesh Macias [...] retroflexion views. Procedure Code(s): --- Professional --- 16934, Colonoscopy, flexible; with removal of tumor(s), polyp(s), or other lesion(s) by snare technique 06700, 59, Colonoscopy, flexible; with biopsy, single or multiple Diagnosis Code(s): --- Professional --- K92.2, Gastrointestinal hemorrhage, unspecified D12.5, Benign neoplasm of sigmoid colon D50.0, Iron deficiency anemia secondary to blood loss (chronic) CPT copyright 2020 [employer]. All rights reserved. The codes documented in this report are preliminary and upon vegetable buncher review may be revised to meet current compliance requirements. Tenzin Paula MD 03/03/2025 10:09:14 AM This report has been signed electronically.Tenzin Paula MD Number of Addenda: 0 Note Initiated On: 03/03/2025 8:46 AM Scope In: Scope Out: Endoscopy Department at [facility] - [address] [place] [phone] Procedure Note Tenzin Paula MD - 03/03/2025 [facility] GI Patient Name: Alpesh Macias [...] retroflexion views. 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 All rights reserved. The codes documented in this report are preliminary and upon vegetable buncher reviewmay be revised to meet current compliance requirements. Tenzin Paula MD 03/03/2025 10:09:14 AM This report has been signed electronically.Tenzin Paula MD Number of Addenda: 0 Note Initiated On: 03/03/2025 8:46 AM Scope In: Scope Out: Endoscopy Department at [facility] - [address] [place] [phone] IMPRESSION: - Blood in the recto-sigmoid colon. [...] al Result * EGD Anesthesia - MAC; [facility] ENDOSCOPY (03/03/2025 10:15 AM EDT) Anatomical Region Laterality Modality Endoscopy 03/03/2025 10:0 9 AM EDT Impressions 03/03/2025 10:14 AM EDT - Normal esophagus. - Normal stomach. - Normal examined duodenum. Biopsied. Recommendation: - Await pathology results. Narrative 03/03/2025 10:14 AM EDT [facility] GI Patient Name: Alpesh Macias [...] for histology. Procedure Code(s): --- Professional --- 12524, Esophagogastroduodenoscopy, flexible, transoral; with biopsy, single or multiple Diagnosis Code(s): --- Professional --- D50.0, Iron deficiency anemia secondary to blood loss (chronic) CPT copyright 2020 [employer]. All rights reserved. The codes documented in this report are preliminary and upon vegetable buncher review may be revised to meet current compliance requirements. Tenzin Paula MD 03/03/2025 10:14:33 AM This report has been signed electronically.Tenzin Paula MD Number of Addenda: 0 Note Initiated On: 03/03/2025 10:09 AM Scope In: Scope Out: Endoscopy Department at [facility] - [address] [place] [phone] Procedure Note Tenzin Paula MD - 03/03/2025 [facility] GI Patient Name: Alpesh Macias [...] for histology. 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 All rights reserved. The codes documented in this report are preliminary and upon vegetable buncher reviewmay be revised to meet current compliance requirements. Tenzin Paula MD 03/03/2025 10:14:33 AM This report has been signed electronically.Tenzin Paula MD Number of Addenda: 0 Note Initiated On: 03/03/2025 10:09 AM Scope In: Scope Out: Endoscopy Department at [facility] - [address] [place] [phone] IMPRESSION: - Normal esophagus. - Normal stomach. [...] currently active code status orders. Care Teams Transmission Rebuilder Relationship Specialty Start Date End Date Raquel Jennings NP PCP - General Gastroenterology 04/16/25
== END 2025-04-28 08:47 | disposition home or self-care (01) ==
LOC: HO.US 08:46
PROVIDERS: Absent Provider Obstetrics & Gynecology; PCP Nurse Practitioner Family; Visit Provider Nurse Practitioner Family
DX: N83.202 Unspecified ovarian cyst, left side (principal); N83.201 Unspecified ovarian cyst, right side; N28.1 Cyst of kidney, acquired; Q89.1 Congenital malformations of adrenal gland; R16.1 Splenomegaly, not elsewhere classified; R59.0 Localized enlarged lymph nodes
CPT/HCPCS: 76830; 76856

== ENCOUNTER → 2025-04-28 08:48 | Outpatient (BNV) | payer OTHER, SELFPAY | PROVIDERS: Absent Provider Obstetrics & Gynecology; PCP Nurse Practitioner Family; Visit Provider Radiology Diagnostic Radiology | DX: N83.201 Unspecified ovarian cyst, right side (principal); N83.292 Other ovarian cyst, left side | CPT/HCPCS: 76830; 76856 ==

== ENCOUNTER 2025-05-04 07:26 | Outpatient (REF) | payer OTHER, SELFPAY ==
[2025-05-05 10:53] LABS: CA-125 5 U/mL (<35)
== END 2025-05-04 07:27 | disposition home or self-care (01) ==
LOC: HO.LAB 07:26
PROVIDERS: PCP Nurse Practitioner Family; Visit Provider Obstetrics & Gynecology
DX: N83.201 Unspecified ovarian cyst, right side (principal); N83.202 Unspecified ovarian cyst, left side
CPT/HCPCS: 36415; 86304

== ENCOUNTER 2025-05-04 07:26 | Outpatient (AMB) | payer OTHER, SELFPAY ==
--- OUTSIDE RECORDS SUMMARY | 2025-05-04 07:28 | XMS_ITS | Clinical Summary ---
Author Organization [place] [address] [address] [facility] Address [address] [place] [address] Phone Care Team Providers Care Honey Extractor Name Role Phone Giovanni Jenningsothy Jane EDUCATIONAL TECHNICIAN Primary Care Provider Brendai labtyree Allergies No [...] [address] [place] [address] Julia Chou MA Results 03/11/2025 9:20 AM EDT Office Visit Gastroenterology - [address] [place] [phone] Raquel Jennings, ADRIAN Iron deficiency anemia due to chronic blood loss (Primary Dx); Adenomatous polyp of sigmoid colon 03/11/2025 Telephone Gastroenterology - [address] [phone] Tenzin Paula MD 03/09/2025 Telephone Gastroenterology - [address] [phone] Julia Chou MA Results 03/04/2025 3:05 PM EDT Anesthesia Event [facility] Endoscopy [address] [place] [address] Bolivar Robles MD Kriz, Petra, MD 03/03/2025 8:54 PM EDT - 03/05/2025 5:45 PM EDT Hospital Encounter [facility] Urology Unit [address] [place] [address] Serina Lyons DO Jones, Christopher, MD Kela, Kashyap Devendrabhai, MD Rectal bleeding (Primary Dx); Colonoscopy causing post-procedural bleeding Discharge Disposition: Home or Self Care 03/03/2025 9:09 AM EDT Anesthesia Event [facility] Endoscopy [address] [place] [address] Himanshu Nicole DO 03/03/2025 8:30 AM EDT - 03/03/2025 11:59 PM EDT Hospital Encounter [facility] Endoscopy [address] [place] [address] Tenzin Paula MD Elliott, Barbara J, CRNA [...] Endomysial antibody, IgA (04/16/2025 8:37 AM EDT) [facility] Endomysial IgA Negative Negative 04/18/2025 12:41 PM EDT [facility] Blood Venous blood specimen / Unknown Venipuncture / Unknown 04/16/2025 8:37 AM EDT 04/16/2025 8:37 AM EDT us Raquel Jennings EDUCATIONAL TECHNICIAN LAB BLOOD ORDERABLES Final Re sult [facility] [address] [place] [address], [place] [phone] * (ABNORMAL) CBC auto differential (04/16/2025 8:37 AM EDT) Only the most recent of3 resultswithin the time period is included. [facility] WBC 3.8(L) 4.8 - 10.8 K/mcL LAB HEMETOLOGY METHOD 04/16/2025 11:50 AM EDT [facility] RBC 4.40 3.80 - 4.80 M/mcL LAB HEMETOLOGY METHOD 04/16/2025 11:50 AM EDT [facility] Hemoglobin 13.1 11.5 - 16.0 g/dL LAB HEMETOLOGY METHOD 04/16/2025 11:50 AM EDT [facility] Hematocrit 42.3 35.0 - 47.0 % LAB HEMETOLOGY METHOD 04/16/2025 11:50 AM EDT [facility] MCV 95.3 79.0 - 98.0 FL LAB HEMETOLOGY METHOD 04/16/2025 11:50 AM EDT [facility] MCH 29.5 27.0 - 32.0 pcg LAB HEMETOLOGY METHOD 04/16/2025 11:50 AM [facility] MCHC 31.0(L) 32.0 - 37.0 g/dL LAB HEMETOLOGY METHOD 04/16/2025 11:50 AM [facility] RDW 13.8 11.0 - 15.0 % LAB HEMETOLOGY METHOD 04/16/2025 11:50 AM [facility] Platelets 183 130 - 400 K/mcL LAB HEMETOLOGY METHOD 04/16/2025 11:50 AM [facility] MPV 10.8 7.0 - 11.0 MA LAB HEMETOLOGY METHOD 04/16/2025 11:50 AM [facility] NRBC 0.0 <1.0 % LAB HEMETOLOGY METHOD 04/16/2025 11:50 AM [facility] NRBC Absolute 0.00 <0.10 K/mcL LAB HEMETOLOGY METHOD 04/16/2025 11:50 AM [facility] Neutrophils Relative 48.2 % LAB HEMETOLOGY METHOD 04/16/2025 11:50 AM [facility] Lymphocytes Relative 39.2 % LAB HEMETOLOGY METHOD 04/16/2025 11:50 AM [facility] Monocytes Relative 8.3 % LAB HEMETOLOGY METHOD 04/16/2025 11:50 AM [facility] Eosinophils Relative 3.5 % LAB HEMETOLOGY METHOD 04/16/2025 11:50 AM [facility] Basophils Relative 0.8 % LAB HEMETOLOGY METHOD 04/16/2025 11:50 AM [facility] Immature Granulocytes Relative 0.0 % LAB HEMETOLOGY METHOD 04/16/2025 11:50 AM EDT [facility] Neutrophils Absolute 1.81 1.50 - 7.00 K/mcL LAB HEMETOLOGY METHOD 04/16/2025 11:50 AM EDT [facility] Lymphocytes Absolute 1.47 1.00 - 5.00 K/mcL LAB HEMETOLOGY METHOD 04/16/2025 11:50 AM EDT [facility] Monocytes Absolute 0.31 0.20 - 1.00 K/mcL LAB HEMETOLOGY METHOD 04/16/2025 11:50 AM EDT [facility] Eosinophils Absolute 0.13 0.00 - 0.50 K/mcL LAB HEMETOLOGY METHOD 04/16/2025 11:50 AM EDT [facility] Basophils Absolute 0.03 0.00 - 0.20 K/mcL LAB HEMETOLOGY METHOD 04/16/2025 11:50 AM EDT [facility] Immature Granulocytes Absolute 0.00 0.00 - 0.03 K/mcL LAB HEMETOLOGY METHOD 04/16/2025 11:50 AM EDT [facility] Blood Venous blood specimen / Unknown Venipuncture / Unknown 04/16/2025 8:37 AM EDT 04/16/2025 8:37 AM EDT Raquel Jennings EDUCATIONAL TECHNICIAN LAB BLOOD ORDERABLES Final Re sult [facility] [address] [place] [address], * Tissue transglutaminase, IgA (04/16/2025 8:37 AM EDT) Tissue Transglutaminase Ab, IgA Quant 1 <4 unit/mL LAB CHEMISTRY METHOD 04/21/2025 11:18 AM EDT [facility] Tissue Transglutaminase Ab, IgA Negative Negative LAB CHEMISTRY METHOD 04/21/2025 11:18 AM EDT [facility] Blood Venous blood specimen / Unknown Venipuncture / Unknown 04/16/2025 8:37 AM EDT 04/16/2025 8:37 AM EDT us Raquel Jennings EDUCATIONAL TECHNICIAN LAB BLOOD ORDERABLES Final Re sult [facility] [address] [place] [address], [place] [phone] * (ABNORMAL) Comprehensive metabolic panel (04/16/2025 8:37 AM EDT) Only the most recent of2 resultswithin the time period is included. Sodium 141 133 - 145 mmol/L LAB CHEMISTRY METHOD 04/16/2025 12:04 PM [facility] Potassium 5.2 3.5 - 5.5 mmol/L LAB CHEMISTRY METHOD 04/16/2025 12:04 PM [facility] Chloride 110 96 - 110 mmol/L LAB CHEMISTRY METHOD 04/16/2025 12:04 PM [facility] CO2 30 21 - 32 mmol/L LAB CHEMISTRY METHOD 04/16/2025 12:04 PM [facility] Anion Gap 1(L) 3 - 11 LAB CHEMISTRY METHOD 04/16/2025 12:04 PM [facility] Glucose 95 70 - 100 mg/dL LAB CHEMISTRY METHOD 04/16/2025 12:04 PM [facility] BUN 15 5 - 25 mg/dL LAB CHEMISTRY METHOD 04/16/2025 12:04 PM [facility] Creatinine 0.66 0.50 - 1.10 mg/dL LAB CHEMISTRY METHOD 04/16/2025 12:04 PM [facility] eGFR 101 >=60 mL/min/1. 73m2 LAB CHEMISTRY METHOD 04/16/2025 12:04 PM [facility] Comment:Calculation based on the Chronic Kidney Disease Epidemiology Collaboration (CKD-EPI) equation refit without adjustment for race. BUN/Creatinine Ratio 22.7 LAB CHEMISTRY METHOD 04/16/2025 12:04 PM [facility] Calcium 9.8 8.5 - 10.5 mg/dL LAB CHEMISTRY METHOD 04/16/2025 12:04 PM [facility] AST (SGOT) 14 10 - 42 unit/L LAB CHEMISTRY METHOD 04/16/2025 12:04 PM [facility] ALT (SGPT) 25 10 - 60 unit/L LAB CHEMISTRY METHOD 04/16/2025 12:04 PM [facility] Alkaline Phosphatase 67 42 - 121 unit/L LAB CHEMISTRY METHOD 04/16/2025 12:04 PM [facility] Total Protein 7.7 6.0 - 8.0 g/dL LAB CHEMISTRY METHOD 04/16/2025 12:04 PM [facility] Albumin 4.0 3.2 - 5.0 g/dL LAB CHEMISTRY METHOD 04/16/2025 12:04 PM [facility] Total Bilirubin 0.5 0.0 - 1.4 mg/dL LAB CHEMISTRY METHOD 04/16/2025 12:04 PM [facility] Blood Venous blood specimen / Unknown Venipuncture / Unknown 04/16/2025 8:37 AM EDT 04/16/2025 8:37 AM EDT us Raquel Jennings NP LAB BLOOD ORDERABLES Final Re sult [facility] [address] [place] [address], * (ABNORMAL) Hemoglobin and hematocrit (03/05/2025 7:02 AM EDT) Only the most recent of4 resultswithin the time period is included. Hemoglobin 9.9(L) 11.5 - 16.0 g/dL LAB HEMETOLOGY METHOD 03/05/2025 7:30 AM EDT [facility] Hematocrit 32.5(L) 35.0 - 47.0 % LAB HEMETOLOGY METHOD 03/05/2025 7:30 AM EDT [facility] Blood Venous blood specimen / Unknown Venipuncture / Unknown 03/05/2025 7:02 AM EDT 03/05/2025 7:21 AM EDT us Richardson Luna MD LAB BLOOD ORDERABLE S Final Result Performing Organization Address [facility]/State/ZIP Co de Phone Number [facility] [address] [place] [address], [place] [phone] * SST tube (03/05/2025 7:00 AM EDT) Pathologist [facility] Extra Tube Hold for add-ons. 03/05/2025 9:01 AM EDT [facility] Comment:Auto resulted. Blood Venous blood specimen / Unknown 03/05/2025 7:00 AM EDT 03/05/2025 7:22 AM EDT us Richardson Luna MD LAB BLOOD ORDERABLE S Final Result Performing Organization Address City/[facility]/ZIP Co de Phone Number [facility] [address] [place] [address], [place] [phone] * FLEXIBLE SIGMOIDOSCOPY Anesthesia - MAC; [facility] ENDOSCOPY (03/04/2025 3:35 PM EDT) Anatomical Region Laterality Modality Endoscopy 03/04/2025 3:01 PM EDT Impressions 03/04/2025 3:41 PM EDT - One 12 mm polyp in the distal sigmoid colon. Clip (MR conditional) was placed. Clip forming machine operator: [employer]. - One 20 mm polyp in the mid sigmoid colon, removed with a hot snare. Resected and retrieved. Clips (MR conditional) were placed. Clip forming machine operator: [employer]. - One 20 mm polyp in the proximal sigmoid colon, removed with a hot snare. Resected and retrieved. Clip (MR conditional) was placed. Clip forming machine operator: [employer]. Recommendation: - Continue present medications. - Repeat flexible sigmoidoscopy in 3 months for surveillance. Narrative 03/04/2025 3:41 PM EDT [facility] Patient Name: Alpesh Macias [...] clip was successfully placed (MR conditional). Clip forming machine operator: [employer]. There was no bleeding at the [...] clips were successfully placed (MR conditional). Clip forming machine operator: [employer]. There was no bleeding at the [...] clip was successfully placed (MR conditional). Clip forming machine operator: [employer]. There was no bleeding at the end of the procedure. Procedure Code(s): --- Professional --- 97361, Sigmoidoscopy, flexible; with removal of tumor(s), polyp(s), or other lesion(s) by snare technique Diagnosis Code(s): --- Professional --- D12.5, Benign neoplasm of sigmoid colon K62.5, Hemorrhage of anus and rectum K91.840, Postprocedural hemorrhage of a digestive system organ or structure following a digestive system procedure CPT copyright 2020 [employer]. All rights reserved. The codes documented in this report are preliminary and upon superintendent horticulture review may be revised to meet current compliance requirements. Tenzin Paula MD 03/04/2025 3:41:26 PM This report has been signed electronically.Tenzin Paula MD Number of Addenda: 0 Note Initiated On: 03/04/2025 3:01 PM Scope In: Scope Out: Endoscopy Department at [facility] - [address] [place] [phone] Procedure Note Tenzin Paula MD - 03/04/2025 [facility] GI Patient Name: Alpesh Macias [...] hemostatic clip wassuccessfully placed (MR conditional). Clip forming machine operator: [employer] There was no bleeding at the end [...] twohemostatic clips were successfully placed (MR conditional).Clip forming machine operator: [employer]. There was nobleeding at the end [...] clip was successfully placed (MR conditional). Clip forming machine operator: [employer]. There was no bleeding at the end of the procedure. Procedure Code(s): --- Professional --- 99666, Sigmoidoscopy, flexible; with removal of tumor(s), polyp(s), or other lesion(s) by snare technique Diagnosis Code(s): --- Professional --- D12.5, Benign neoplasm of sigmoid colon K62.5, Hemorrhage of anus and rectum K91.840, Postprocedural hemorrhage of a digestive system organ or structure following a digestivesystem procedure CPT copyright 2020 [employer]. All rights reserved. The codes documented in this report are preliminary and upon superintendent horticulture reviewmay be revised to meet current compliance requirements. Tenzin Paula MD 03/04/2025 3:41:26 PM This report has been signed electronically.Tenzin Paula MD Number of Addenda: 0 Note Initiated On: 03/04/2025 3:01 PM Scope In: Scope Out: Endoscopy Department at [address] [phone] IMPRESSION: - One 12 mm polyp in the distal sigmoid colon. Clip (MR conditional) was placed. Clip forming machine operator:[employer]. - One 20 mm polyp in the mid sigmoid colon, removed with a hot snare. Resected and retrieved. Clips (MR conditional) were placed. Clip forming machine operator: [employer]. - One 20 mm polyp in the proximal sigmoid colon, removed with a hot snare. Resected and retrieved.Clip (MR conditional) was placed. Clip forming machine operator:[employer]. Recommendation: - Continue present medications. - [...] the patient's recent polypectomy (see prior report, [id number]). 03/08/2025 9:11 AM EDT [facility] Clinical Information Completion of polypectomy from yesterday 03/08/2025 9:11 AM EDT [facility] Gross Description A. Large Intestine, Sigmoid [...] one slide. LISA 03/08/2025 9:11 AM T [facility] Disclaimer Unless otherwise specified, all tissue is 10% NB formalin fixed and paraffin embedded. 03/08/2025 9:11 AM T [facility] Tissue Sigmoid colon structure / Unknown 03/04/2025 3:28 PM EDT 03/04/2025 4:01 PM EDT Tenzin Paula MD LAB PATHOLOGY ORDERABLES Fi nal Result [facility] [address] [place] [address], * (ABNORMAL) Basic metabolic panel (03/04/2025 5:39 AM EDT) Sodium 139 133 - 145 mmol/L LAB CHEMISTRY METHOD 03/04/2025 6:19 AM T [facility] Potassium 4.2 3.5 - 5.5 mmol/L LAB CHEMISTRY METHOD 03/04/2025 6:19 AM [facility] Chloride 108 96 - 110 mmol/L LAB CHEMISTRY METHOD 03/04/2025 6:19 AM T [facility] CO2 26 21 - 32 mmol/L LAB CHEMISTRY METHOD 03/04/2025 6:19 AM [facility] Anion Gap 5 3 - 11 LAB CHEMISTRY METHOD 03/04/2025 6:19 AM [facility] Glucose 105(H) 70 - 100 mg/dL LAB CHEMISTRY METHOD 03/04/2025 6:19 AM [facility] BUN 11 5 - 25 mg/dL LAB CHEMISTRY METHOD 03/04/2025 6:19 AM [facility] Creatinine 0.58 0.50 - 1.10 mg/dL LAB CHEMISTRY METHOD 03/04/2025 6:19 AM [facility] eGFR 104 >=60 mL/min/1. 73m2 LAB CHEMISTRY METHOD 03/04/2025 6:19 AM [facility] Comment:Calculation based on the Chronic Kidney Disease Epidemiology Collaboration (CKD-EPI) equation refit without adjustment for race. BUN/Creatinine Ratio 19.0 LAB CHEMISTRY METHOD 03/04/2025 6:19 AM [facility] Calcium 9.5 8.5 - 10.5 mg/dL LAB CHEMISTRY METHOD 03/04/2025 6:19 AM [facility] Blood Venous blood specimen / Unknown Venipuncture / Unknown 03/04/2025 5:39 AM EDT 03/04/2025 5:43 AM EDT us Saeed Mariee MD LAB BLOOD ORDERABLES Final Result [facility] [address] [place] [address], * CT Angio Abdomen Pelvis wo and/or [...] ABO Group A 03/03/2025 8:37 PM EDT [facility] Rh Type Positive 03/03/2025 8:37 PM EDT [facility] Antibody Screen Negative 03/03/2025 8:37 PM EDT [facility] Blood Venous blood specimen / Unknown Venipuncture / Unknown 03/03/2025 7:38 PM EDT 03/03/2025 7:59 PM EDT us Serina Lyons DO LAB BLOOD BANK TEST ORDER SHAHZAD Final Result [facility] ([facility]) [facility] [address] [place] [address], [place] [phone] * COLONOSCOPY Anesthesia - MAC; [facility] ENDOSCOPY (03/03/2025 10:15 AM EDT) Anatomical [...] need surgery Narrative 03/03/2025 10:09 AM EDT [facility] Patient Name: Alpesh Macias [...] retroflexion views. Procedure Code(s): --- Professional --- 70566, Colonoscopy, flexible; with removal of tumor(s), polyp(s), or other lesion(s) by snare technique 16044, 59, Colonoscopy, flexible; with biopsy, single or multiple Diagnosis Code(s): --- Professional --- K92.2, Gastrointestinal hemorrhage, unspecified D12.5, Benign neoplasm of sigmoid colon D50.0, Iron deficiency anemia secondary to blood loss (chronic) CPT copyright 2020 [employer]. All rights reserved. The codes documented in this report are preliminary and upon superintendent horticulture review may be revised to meet current compliance requirements. Tenzin Paula MD 03/03/2025 10:09:14 AM This report has been signed electronically.Tenzin Paula MD Number of Addenda: 0 Note Initiated On: 03/03/2025 8:46 AM Scope In: Scope Out: Endoscopy Department at [facility] - [address] [place] [phone] Procedure Note Tenzin Paula MD - 03/03/2025 [facility] GI Patient Name: Alpesh Macias [...] retroflexion views. 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 All rights reserved. The codes documented in this report are preliminary and upon superintendent horticulture reviewmay be revised to meet current compliance requirements. Tenzin Paula MD 03/03/2025 10:09:14 AM This report has been signed electronically.Tenzin Paula MD Number of Addenda: 0 Note Initiated On: 03/03/2025 8:46 AM Scope In: Scope Out: Endoscopy Department at [facility] - [address] [place] [phone] IMPRESSION: - Blood in the recto-sigmoid colon. [...] al Result * EGD Anesthesia - MAC; [facility] ENDOSCOPY (03/03/2025 10:15 AM EDT) Anatomical Region Laterality Modality Endoscopy 03/03/2025 10:0 9 AM EDT Impressions 03/03/2025 10:14 AM EDT - Normal esophagus. - Normal stomach. - Normal examined duodenum. Biopsied. Recommendation: - Await pathology results. Narrative 03/03/2025 10:14 AM EDT [facility] Patient Name: Alpesh Macias [...] for histology. Procedure Code(s): --- Professional --- 95405, Esophagogastroduodenoscopy, flexible, transoral; with biopsy, single or multiple Diagnosis Code(s): --- Professional --- D50.0, Iron deficiency anemia secondary to blood loss (chronic) CPT copyright 2020 [employer]. All rights reserved. The codes documented in this report are preliminary and upon superintendent horticulture review may be revised to meet current compliance requirements. Tenzin Paula MD 03/03/2025 10:14:33 AM This report has been signed electronically.Tenzin Paula MD Number of Addenda: 0 Note Initiated On: 03/03/2025 10:09 AM Scope In: Scope Out: Endoscopy Department at [facility] - [address] [place] [phone] Procedure Note Tenzin Paula MD - 03/03/2025 [facility] GI Patient Name: Alpesh Macias [...] for histology. 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 All rights reserved. The codes documented in this report are preliminary and upon superintendent horticulture reviewmay be revised to meet current compliance requirements. Tenzin Paula MD 03/03/2025 10:14:33 AM This report has been signed electronically.Tenzin Paula MD Number of Addenda: 0 Note Initiated On: 03/03/2025 10:09 AM Scope In: Scope Out: Endoscopy Department at [facility] - [address] [place] [phone] IMPRESSION: - Normal esophagus. - Normal stomach. [...] currently active code status orders. Care Teams Honey Extractor Relationship Specialty Start Date End Date Raquel Jennings NP PCP - General Gastroenterology 04/16/25
--- NOTE | 2025-05-04 07:29 | A.OFFVIS_ITS ---
Vital Signs 05/04/25 07:30 Height 5 ft 6 in Weight 196 lb BMI 31.6 Intake Visit Reasons: ultrasound results Big Data Engineer Required: No Information Interpreted: non-clinical & clinical Accompanied by: Spouse Allergies No Known Allergies Allergy (Verified 05/04/25 07:30) Post menopausal: Yes HPI Comments Details: Presenting for ultrasound follow-up done on 04/28/2025 regarding cystic lesion of the right ovary on CT scan. Ultrasound done showed the following: Uterus: The uterus is normal in size, measuring 6.0 x 2.9 x 3.1 cm. Myometrium has a normal echotexture. No fibroids are identified. Endometrium: The endometrial stripe measures 2 mm in thickness. Right ovary: The right ovary measures 3.2 x 1.8 x 3.1 cm. The right ovary is normal in size and echotexture. There is a 2.7 x 1.6 x 2.8 cm cyst. Left ovary: The left ovary measures 1.1 x 1.2 x 0.9 cm. The left ovary is normal in size and echotexture. There is a 7 x 8 x 6 mm paraovarian cyst. Pelvic fluid: none. US/US pelvic and transvaginal IMPRESSION: 1. 2.7 x 1.6 x 2.8 cm right ovarian cyst. 2. 7 x 8 x 6 mm left paraovarian cyst. Mammogram scheduled Co testing done recently was negative [facility] Medical History IBS (irritable bowel syndrome) Pulmonary embolism (~2017) Surgical History (Updated 04/28/25 @ 07:11 by Sonia Enriquez [facility]) History of colonoscopy (~02/2025) Family History Mother Asthma Father HTN (hypertension) Diabetes Maternal Grandmother HTN (hypertension) Paternal Grandmother Diabetes Maternal Grandfather Diabetes Social History Household Members: Spouse and Children Both parents involved: No Caregiver staying overnight: No Housing: House Are you a primary nurse behavioral health care to a significant other at home: No Do you presently have visiting nurse or other home services: No 75 years or older and lives alone: No Alcohol intake: never Patient Tobacco Use Status: Never used Tobacco e-Cigarette/Vaping Use: Never Used Second Hand Smoke Exposure: No service: No Current occupational status: unemployed Cognitive needs: No Hearing needs: No Vision needs: Yes (wear glasses) Review of Systems Const All systems reviewed & are unremarkable except as noted in HPI and below Reports as per HPI and Reports no additional complaints GI Reports no additional complaints Reports no additional complaints Physical Exam Vital Signs: BMI result Body Mass Index 31.6 Assessment & Plan Assessment & Plan (1) Right ovarian cyst: Onset Date: ~02/2025 Code(s): N83.201 - Unspecified ovarian cyst, right side Category: Medical Plan: Discussed with the patient the ovarian cyst by ultrasound. Discussed with the patient the Ultrasound findings, the main limitation of transvaginal ultrasonography alone as a diagnostic tool to distinguish benign from malignant masses relates to its lack of specificity and low positive predictive value for cancer. The differential diagnosis discussed with the patient includes the following but not limited to: benign and malignant gynecological and non- gynecological causes. Serum tumor marker CA 125 wnl Discussed with the patient that CA 125 is a protein associated with epithelial ovarian malignancies, but also frequently expressed at lower levels by nonmalignant tissue. Normal CA 125 levels can be found in ovarian cancer patients. Elevation of CA 125 levels may occur in nonmalignant gynecologic conditions, and in non-gynecologic cancers, It is most useful in postmenopausal women and in identifying non mucinous epithelial cancer. The CA 125 level is elevated in 80% of patients with epithelial ovarian cancer but in only 50% of patients with stage I disease. The overall sensitivity of CA 125 testing in distinguishing benign from malignant adnexal masses reportedly ranges from 61% to 90%; specificity ranges from 71% to 93%, positive predictive value ranges from 35% to 91%, and negative predictive value ranges from 67% to 90%. Discussed with the patient options of treatment , in case CA 125 is not elevated, including laparoscopy ovarian salpingo- oophorectomy vs. expectant management with repeat US in repeating pelvic US in 3 months from previous US. If the ovarian cyst is persistent larger and / or changes in Ultrasound appearance & became complex looking, or higher CA 125 will refer to gynecologic Oncology. All pros, cons, risks and benefits of each approach were discussed with the patient including but not limited to a delay in the diagnosis and treatment of ovarian cancer affecting the prognosis; The patient decided to go ahead with expectant management, pelvic ultrasound ordered in 3 months. Instructions given to patient to schedule an ultrasound and a follow-up appointment afterwards. All questions were answered & the patient verbalized understanding and agreed with the plan Orders: Orders CA-125 Today N83.201 - Unspecified ovarian cyst, right side US pelvic and transvaginal 3 Months N83.201 - Unspecified ovarian cyst, right side Coding Level of Care Code Est Pt Level 3 (28702) Diagnoses Right ovarian cyst N83.201
[2025-05-04 07:30] VITALS: BMI 31.6
== END 2025-05-04 07:56 | disposition home or self-care (01) ==
PROVIDERS: PCP Nurse Practitioner Family; Visit Provider Obstetrics & Gynecology
DX: N83.201 Unspecified ovarian cyst, right side (principal)
CPT/HCPCS: 99213

== ENCOUNTER 2025-05-10 11:18 | Outpatient (REF) | payer OTHER, SELFPAY ==
[2025-05-10 17:40] LABS: Appearance Urine Clear; Glucose Urine UA Negative (Negative); PH 5.5 (5.0-9.0); Specific Gravity - Urine <= 1.005 (1.005-1.025); UMIC TRIGGER UA YES
[2025-05-10 17:58] LABS: Anion Gap 11 (12-20); Blood Urea Nitrogen 10 mg/dL (9-16); Calcium 9.7 mg/dL (8.4-10.2); Carbon Dioxide 26 mmol/L (22-29); Chloride 109 mmol/L (96-108); Estimated Glomerular Filt Rate > 60; Potassium 4.2 mmol/L (3.3-5.1); Sodium 142 mmol/L (135-145)
== END 2025-05-10 11:19 | disposition home or self-care (01) ==
LOC: HO.HKASLDS 11:18
PROVIDERS: PCP Nurse Practitioner Family; Referring Provider Nurse Practitioner Family; Visit Provider Internal Medicine Critical Care Medicine
DX: N28.1 Cyst of kidney, acquired (principal); N20.0 Calculus of kidney; I10 Essential (primary) hypertension
CPT/HCPCS: 36415; 80048; 81001

== ENCOUNTER 2025-05-10 11:18 | Outpatient (AMB) | payer OTHER, SELFPAY ==
--- NOTE | 2025-05-10 11:28 | HO.NEPHOV ---
Vital Signs 05/10/25 11:29 Height 5 ft 6 in Weight 198 lb 8 oz BMI 32.0 BP 130/74 Blood Pressure Location Lt brachial Position Sitting Intake Visit Reasons: INP:Calculus of kidney,Cyst [facility] Protection Specialist Required: No Accompanied by: Spouse Allergies No Known Allergies Allergy (Verified 05/10/25 11:29) HPI Comments Details: 59-year-old lady with past medical history of hypertension, renal stones, iron deficiency anemia, PE, colon polyp he is here to establish care. Here with her Manpreet who is a music composition teacher.Has been living overseas in [place], [place], [place], [facility]. She underwent a CT chest abdomen and pelvis in 03/03/[address] [facility] for post colonopscopy complication which showed a few less than 5 mm left-sided renal calculi with no hydronephrosis, no calculi in the left ureter and bladder and also a 3.2 cms left renal cyst multiple subcentimeter swelling in right kidney. REPLACED BY [facility] Medical History (Updated 05/10/25 @ 11:44 by Neo Alvarenga MD) IBS (irritable bowel syndrome) Pulmonary embolism (~2017) Surgical History History of colonoscopy (~02/2025) Family History Mother Asthma Father HTN (hypertension) Diabetes Maternal Grandmother HTN (hypertension) Paternal Grandmother Diabetes Maternal Grandfather Diabetes Social History Household Members: Spouse and Children Both parents involved: No Caregiver staying overnight: No Housing: House Are you a primary critical care cns to a significant other at home: No Do you presently have visiting nurse or other home services: No 75 years or older and lives alone: No Alcohol intake: never Patient Tobacco Use Status: Never used Tobacco e-Cigarette/Vaping Use: Never Used Second Hand Smoke Exposure: No service: No Current occupational status: unemployed Cognitive needs: No Hearing needs: No Vision needs: Yes (wear glasses) Review of Systems Const Details: Const Denies body aches, Denies chills, Denies excessive sweating and Denies fatigue, weight loss+ Eyes Denies blurry vision and Denies change in vision ENT Denies bleeding gums and Denies change in voice Card Denies chest pain and Denies leg ulcers Resp Denies cough and Denies excessive phlegm production GI Denies abdominal pain and Denies bloating Denies hematuria, Denies urinary frequency and Denies difficulty voiding Musc Denies abnormal gait Neuro Denies Neuro-related abnormal movements, Denies abnormal gait and Denies behavioral changes Psych Denies behavioral changes and Denies change in appetite Endo Denies cold intolerance, Denies excessive sweating and Denies fatigue Physical Exam Vital Signs: Last Vital Signs BP 130/74 05/10/25 11:29 BMI result Body Mass Index 32.0 General: very pleasant middle aged looking lady in no distress Nutritional Appearance: well nourished and overweight Eyes: appearance normal, both eyes and all related structures; Alignment and Position: alignment normal and position normal Neck: No lymphadenopathy, no thyromegaly Resp: bilateral air entry equal, no added sounds present Cardio: Regular rate, regular rhythm; Heart sounds: S1 normal heart sound present and S2 normal heart sound present, no edema GI: soft, nontender, no guarding, no hepatosplenomegaly : bladder normal to inspection, bladder normal to palpation, no renal angle tenderness Skin: no rashes or lesions noted and elasticity normal Neuro: oriented to person, oriented to place, oriented to time and moves all extremities Assessment & Plan Assessment & Plan (1) HTN (hypertension): Code(s): I10 - Essential (primary) hypertension Category: Medical Qualifiers: Hypertension type: primary hypertension Qualified Code(s): I10 - Essential (primary) hypertension (2) Renal cyst, left: Comment: 3.2 cm L renal cyst Code(s): N28.1 - Cyst of kidney, acquired Category: Medical (3) Nephrolithiasis: Code(s): N20.0 - Calculus of kidney Category: Medical (4) Renal cyst: Code(s): N28.1 - Cyst of kidney, acquired Category: Medical Plan Kidney stones: - patient does not have any symptoms from kidney stones in the past, it was an incidental finding on the CT where a few less than 5 mm left-sided renal calculi with no hydronephrosis, no calculi in the left ureter and bladder and also a 3.2 cms left renal cyst multiple subcentimeter swelling noted in right kidney.. - will get urinalysis to look for pH, will get uric acid, PTH and Vitamin-D levels to look for stone etiology - advised the patient for fluid intake at least 3 L per day, more so in summer - low-sodium diet, increased dairy products with the meals, increased [place] and citrous intake (without added sugar) - decrease animal protein (she states she doesn't eat red meat), avoid sugar sweetened sodas, fruit punch, grapefruit and large volume cranberry juice Renal cyst: She has 3.5 cm cyst in the left kidney, multiple subcentimeter low-attenuation lesions in the right kidney too small to characterize. Given multiple ovarian cyst, colonic polyps and splenic lesions would like to rule out PCKD. We will get MRI of the kidneys. Time spent is about 35minutes, 10 minutes on chart review, 10 minutes on documentation, 15minutes on encounter. Orders: Orders UA and rflx microscopic Today N20.0 - Calculus of kidney Parathyroid Hormone Intact 1 Month N20.0 - Calculus of kidney, N28.1 - Cyst of kidney, acquired Uric Acid 1 Month N20.0 - Calculus of kidney MR abd polycystic kid wo con Today N20.0 - Calculus of kidney, N28.1 - Cyst of kidney, acquired Basic Metabolic Panel Today N20.0 - Calculus of kidney Vitamin D 25-OH Total 1 Month N20.0 - Calculus of kidney, N28.1 - Cyst of kidney, acquired Coding Level of Care Code New Pt Level 4 (17364) Diagnoses Primary hypertension I10 Hypertension type: primary hypertension Renal cyst, left N28.1 Nephrolithiasis N20.0 Renal cyst N28.1
[2025-05-10 11:29] VITALS: BP 130/74; BMI 32.0
--- OUTSIDE RECORDS SUMMARY | 2025-05-10 12:16 | XMS_ITS | Clinical Summary ---
Author Organization [place] [address] Marcela liu [facility] Address [address] [place] [address] Phone Care Team Providers Care Production Analyst Name Role Phone Dick Raquel Jane DIRECTOR SPORTS Primary Care Provider Brendai labtyree Allergies No [...] [address] [place] [address] Julia Chou MA Results 03/11/2025 9:20 AM EDT Office Visit Gastroenterology - [address] [place] [phone] Raquel Jennings, ADRIAN Iron deficiency anemia due to chronic blood loss (Primary Dx); Adenomatous polyp of sigmoid colon 03/11/2025 Telephone Gastroenterology - [address] [phone] Tenzin Paula MD 03/09/2025 Telephone Gastroenterology - [address] [phone] Julia Chou MA Results 03/04/2025 3:05 PM EDT Anesthesia Event [facility] Endoscopy [address] [place] [address] Bolivar Robles MD Kriz, Petra, MD 03/03/2025 8:54 PM EDT - 03/05/2025 5:45 PM EDT Hospital Encounter [facility] Urology Unit [address] [place] [address] Serina Lyons DO Jones, Christopher, MD Kela, Kashyap Devendrabhai, MD Rectal bleeding (Primary Dx); Colonoscopy causing post-procedural bleeding Discharge Disposition: Home or Self Care 03/03/2025 9:09 AM EDT Anesthesia Event [facility] Endoscopy [address] [place] [address] Himanshu Nicole DO 03/03/2025 8:30 AM EDT - 03/03/2025 11:59 PM EDT Hospital Encounter [facility] Endoscopy [address] [place] [phone] Tenzin Paula MD Elliott, Barbara J, CRNA [...] Endomysial antibody, IgA (04/16/2025 8:37 AM EDT) [facility] Endomysial IgA Negative Negative 04/18/2025 12:41 PM EDT [facility] Blood Venous blood specimen / Unknown Venipuncture / Unknown 04/16/2025 8:37 AM EDT 04/16/2025 8:37 AM EDT us Raquel Jennings DIRECTOR SPORTS LAB BLOOD ORDERABLES Final Re sult [facility] [address] [place] [address], [place] [phone] * (ABNORMAL) CBC auto differential (04/16/2025 8:37 AM EDT) Only the most recent of3 resultswithin the time period is included. [facility] WBC 3.8(L) 4.8 - 10.8 K/mcL LAB HEMETOLOGY METHOD 04/16/2025 11:50 AM EDT [facility] RBC 4.40 3.80 - 4.80 M/mcL LAB HEMETOLOGY METHOD 04/16/2025 11:50 AM EDT [facility] Hemoglobin 13.1 11.5 - 16.0 g/dL LAB HEMETOLOGY METHOD 04/16/2025 11:50 AM EDT [facility] Hematocrit 42.3 35.0 - 47.0 % LAB HEMETOLOGY METHOD 04/16/2025 11:50 AM EDT [facility] MCV 95.3 79.0 - 98.0 FL LAB HEMETOLOGY METHOD 04/16/2025 11:50 AM EDT [facility] MCH 29.5 27.0 - 32.0 pcg LAB HEMETOLOGY METHOD 04/16/2025 11:50 AM [facility] MCHC 31.0(L) 32.0 - 37.0 g/dL LAB HEMETOLOGY METHOD 04/16/2025 11:50 AM [facility] RDW 13.8 11.0 - 15.0 % LAB HEMETOLOGY METHOD 04/16/2025 11:50 AM [facility] Platelets 183 130 - 400 K/mcL LAB HEMETOLOGY METHOD 04/16/2025 11:50 AM [facility] MPV 10.8 7.0 - 11.0 MA LAB HEMETOLOGY METHOD 04/16/2025 11:50 AM [facility] NRBC 0.0 <1.0 % LAB HEMETOLOGY METHOD 04/16/2025 11:50 AM [facility] NRBC Absolute 0.00 <0.10 K/mcL LAB HEMETOLOGY METHOD 04/16/2025 11:50 AM [facility] Neutrophils Relative 48.2 % LAB HEMETOLOGY METHOD 04/16/2025 11:50 AM [facility] Lymphocytes Relative 39.2 % LAB HEMETOLOGY METHOD 04/16/2025 11:50 AM [facility] Monocytes Relative 8.3 % LAB HEMETOLOGY METHOD 04/16/2025 11:50 AM [facility] Eosinophils Relative 3.5 % LAB HEMETOLOGY METHOD 04/16/2025 11:50 AM [facility] Basophils Relative 0.8 % LAB HEMETOLOGY METHOD 04/16/2025 11:50 AM [facility] Immature Granulocytes Relative 0.0 % LAB HEMETOLOGY METHOD 04/16/2025 11:50 AM EDT [facility] Neutrophils Absolute 1.81 1.50 - 7.00 K/mcL LAB HEMETOLOGY METHOD 04/16/2025 11:50 AM EDT [facility] Lymphocytes Absolute 1.47 1.00 - 5.00 K/mcL LAB HEMETOLOGY METHOD 04/16/2025 11:50 AM EDT [facility] Monocytes Absolute 0.31 0.20 - 1.00 K/mcL LAB HEMETOLOGY METHOD 04/16/2025 11:50 AM EDT [facility] Eosinophils Absolute 0.13 0.00 - 0.50 K/mcL LAB HEMETOLOGY METHOD 04/16/2025 11:50 AM EDT [facility] Basophils Absolute 0.03 0.00 - 0.20 K/mcL LAB HEMETOLOGY METHOD 04/16/2025 11:50 AM EDT [facility] Immature Granulocytes Absolute 0.00 0.00 - 0.03 K/mcL LAB HEMETOLOGY METHOD 04/16/2025 11:50 AM EDT [facility] Blood Venous blood specimen / Unknown Venipuncture / Unknown 04/16/2025 8:37 AM EDT 04/16/2025 8:37 AM EDT Raquel Jennings DIRECTOR SPORTS LAB BLOOD ORDERABLES Final Re sult [facility] [address] [place] [address], * Tissue transglutaminase, IgA (04/16/2025 8:37 AM EDT) Tissue Transglutaminase Ab, IgA Quant 1 <4 unit/mL LAB CHEMISTRY METHOD 04/21/2025 11:18 AM EDT [facility] Tissue Transglutaminase Ab, IgA Negative Negative LAB CHEMISTRY METHOD 04/21/2025 11:18 AM EDT [facility] Blood Venous blood specimen / Unknown Venipuncture / Unknown 04/16/2025 8:37 AM EDT 04/16/2025 8:37 AM EDT us Raquel Jennings DIRECTOR SPORTS LAB BLOOD ORDERABLES Final Re sult [facility] [address] [place] [address], [place] [phone] * (ABNORMAL) Comprehensive metabolic panel (04/16/2025 8:37 AM EDT) Only the most recent of2 resultswithin the time period is included. Sodium 141 133 - 145 mmol/L LAB CHEMISTRY METHOD 04/16/2025 12:04 PM [facility] Potassium 5.2 3.5 - 5.5 mmol/L LAB CHEMISTRY METHOD 04/16/2025 12:04 PM [facility] Chloride 110 96 - 110 mmol/L LAB CHEMISTRY METHOD 04/16/2025 12:04 PM [facility] CO2 30 21 - 32 mmol/L LAB CHEMISTRY METHOD 04/16/2025 12:04 PM [facility] Anion Gap 1(L) 3 - 11 LAB CHEMISTRY METHOD 04/16/2025 12:04 PM [facility] Glucose 95 70 - 100 mg/dL LAB CHEMISTRY METHOD 04/16/2025 12:04 PM [facility] BUN 15 5 - 25 mg/dL LAB CHEMISTRY METHOD 04/16/2025 12:04 PM [facility] Creatinine 0.66 0.50 - 1.10 mg/dL LAB CHEMISTRY METHOD 04/16/2025 12:04 PM [facility] eGFR 101 >=60 mL/min/1. 73m2 LAB CHEMISTRY METHOD 04/16/2025 12:04 PM [facility] Comment:Calculation based on the Chronic Kidney Disease Epidemiology Collaboration (CKD-EPI) equation refit without adjustment for race. BUN/Creatinine Ratio 22.7 LAB CHEMISTRY METHOD 04/16/2025 12:04 PM [facility] Calcium 9.8 8.5 - 10.5 mg/dL LAB CHEMISTRY METHOD 04/16/2025 12:04 PM [facility] AST (SGOT) 14 10 - 42 unit/L LAB CHEMISTRY METHOD 04/16/2025 12:04 PM [facility] ALT (SGPT) 25 10 - 60 unit/L LAB CHEMISTRY METHOD 04/16/2025 12:04 PM [facility] Alkaline Phosphatase 67 42 - 121 unit/L LAB CHEMISTRY METHOD 04/16/2025 12:04 PM [facility] Total Protein 7.7 6.0 - 8.0 g/dL LAB CHEMISTRY METHOD 04/16/2025 12:04 PM [facility] Albumin 4.0 3.2 - 5.0 g/dL LAB CHEMISTRY METHOD 04/16/2025 12:04 PM [facility] Total Bilirubin 0.5 0.0 - 1.4 mg/dL LAB CHEMISTRY METHOD 04/16/2025 12:04 PM [facility] Blood Venous blood specimen / Unknown Venipuncture / Unknown 04/16/2025 8:37 AM EDT 04/16/2025 8:37 AM EDT us Raquel Jennings NP LAB BLOOD ORDERABLES Final Re sult [facility] [address] [place] [address], * (ABNORMAL) Hemoglobin and hematocrit (03/05/2025 7:02 AM EDT) Only the most recent of4 resultswithin the time period is included. Hemoglobin 9.9(L) 11.5 - 16.0 g/dL LAB HEMETOLOGY METHOD 03/05/2025 7:30 AM EDT [facility] Hematocrit 32.5(L) 35.0 - 47.0 % LAB HEMETOLOGY METHOD 03/05/2025 7:30 AM EDT [facility] Blood Venous blood specimen / Unknown Venipuncture / Unknown 03/05/2025 7:02 AM EDT 03/05/2025 7:21 AM EDT us Richardson Luna MD LAB BLOOD ORDERABLE S Final Result Performing Organization Address [facility]/State/ZIP Co de Phone Number [facility] [address] [place] [address], [place] [phone] * SST tube (03/05/2025 7:00 AM EDT) Pathologist [facility] Extra Tube Hold for add-ons. 03/05/2025 9:01 AM EDT [facility] Comment:Auto resulted. Blood Venous blood specimen / Unknown 03/05/2025 7:00 AM EDT 03/05/2025 7:22 AM EDT us Richardson Luna MD LAB BLOOD ORDERABLE S Final Result Performing Organization Address City/[facility]/ZIP Co de Phone Number [facility] [address] [place] [address], [place] [phone] * FLEXIBLE SIGMOIDOSCOPY Anesthesia - MAC; [facility] ENDOSCOPY (03/04/2025 3:35 PM EDT) Anatomical Region Laterality Modality Endoscopy 03/04/2025 3:01 PM EDT Impressions 03/04/2025 3:41 PM EDT - One 12 mm polyp in the distal sigmoid colon. Clip (MR conditional) was placed. Clip magazine feeder: [employer]. - One 20 mm polyp in the mid sigmoid colon, removed with a hot snare. Resected and retrieved. Clips (MR conditional) were placed. Clip magazine feeder: [employer]. - One 20 mm polyp in the proximal sigmoid colon, removed with a hot snare. Resected and retrieved. Clip (MR conditional) was placed. Clip magazine feeder: [employer]. Recommendation: - Continue present medications. - Repeat flexible sigmoidoscopy in 3 months for surveillance. Narrative 03/04/2025 3:41 PM EDT [facility] Patient Name: Alpesh Macias Procedure [...] clip was successfully placed (MR conditional). Clip magazine feeder: [employer]. There was no bleeding at the [...] clips were successfully placed (MR conditional). Clip magazine feeder: [employer]. There was no bleeding at the [...] clip was successfully placed (MR conditional). Clip magazine feeder: [employer]. There was no bleeding at the end of the procedure. Procedure Code(s): --- Professional --- 29668, Sigmoidoscopy, flexible; with removal of tumor(s), polyp(s), or other lesion(s) by snare technique Diagnosis Code(s): --- Professional --- D12.5, Benign neoplasm of sigmoid colon K62.5, Hemorrhage of anus and rectum K91.840, Postprocedural hemorrhage of a digestive system organ or structure following a digestive system procedure CPT copyright 2020 [employer]. All rights reserved. The codes documented in this report are preliminary and upon core microarchitect review may be revised to meet current compliance requirements. Tenzin Paula MD 03/04/2025 3:41:26 PM This report has been signed electronically.Tenzin Paula MD Number of Addenda: 0 Note Initiated On: 03/04/2025 3:01 PM Scope In: Scope Out: Endoscopy Department at [facility] - [address] [place] [phone] Procedure Note Tenzin Paula MD - 03/04/2025 [facility] GI Patient Name: Alpesh Macias Procedure [...] hemostatic clip wassuccessfully placed (MR conditional). Clip magazine feeder: [employer]. There was no bleeding at the end [...] twohemostatic clips were successfully placed (MR conditional).Clip magazine feeder: [employer]. There was nobleeding at the end [...] clip was successfully placed (MR conditional). Clip magazine feeder: [employer]. There was no bleeding at the end of the procedure. Procedure Code(s): --- Professional --- 10874, Sigmoidoscopy, flexible; with removal of tumor(s), polyp(s), or other lesion(s) by snare technique Diagnosis Code(s): --- Professional --- D12.5, Benign neoplasm of sigmoid colon K62.5, Hemorrhage of anus and rectum K91.840, Postprocedural hemorrhage of a digestive system organ or structure following a digestivesystem procedure CPT copyright 2020 [employer]. All rights reserved. The codes documented in this report are preliminary and upon core microarchitect reviewmay be revised to meet current compliance requirements. Tenzin Paula MD 03/04/2025 3:41:26 PM This report has been signed electronically.Tenzin Paula MD Number of Addenda: 0 Note Initiated On: 03/04/2025 3:01 PM Scope In: Scope Out: Endoscopy Department at [address] [phone] IMPRESSION: - One 12 mm polyp in the distal sigmoid colon. Clip (MR conditional) was placed. Clip magazine feeder:[employer]. - One 20 mm polyp in the mid sigmoid colon, removed with a hot snare. Resected and retrieved. Clips (MR conditional) were placed. Clip magazine feeder: [employer]. - One 20 mm polyp in the proximal sigmoid colon, removed with a hot snare. Resected and retrieved.Clip (MR conditional) was placed. Clip magazine feeder:[employer]. Recommendation: - Continue present medications. - [...] the patient's recent polypectomy (see prior report, [id number]). 03/08/2025 9:11 AM EDT [facility] Clinical Information Completion of polypectomy from yesterday 03/08/2025 9:11 AM EDT [facility] Gross Description A. Large Intestine, [...] one slide. LISA 03/08/2025 9:11 AM T [facility] Disclaimer Unless otherwise specified, all tissue is 10% NB formalin fixed and paraffin embedded. 03/08/2025 9:11 AM T [facility] Tissue Sigmoid colon structure / Unknown 03/04/2025 3:28 PM EDT 03/04/2025 4:01 PM EDT Tenzin Paula MD LAB PATHOLOGY ORDERABLES Fi nal Result [facility] [address] [place] [address], * (ABNORMAL) Basic metabolic panel (03/04/2025 5:39 AM EDT) Sodium 139 133 - 145 mmol/L LAB CHEMISTRY METHOD 03/04/2025 6:19 AM T [facility] Potassium 4.2 3.5 - 5.5 mmol/L LAB CHEMISTRY METHOD 03/04/2025 6:19 AM [facility] Chloride 108 96 - 110 mmol/L LAB CHEMISTRY METHOD 03/04/2025 6:19 AM T [facility] CO2 26 21 - 32 mmol/L LAB CHEMISTRY METHOD 03/04/2025 6:19 AM [facility] Anion Gap 5 3 - 11 LAB CHEMISTRY METHOD 03/04/2025 6:19 AM [facility] Glucose 105(H) 70 - 100 mg/dL LAB CHEMISTRY METHOD 03/04/2025 6:19 AM [facility] BUN 11 5 - 25 mg/dL LAB CHEMISTRY METHOD 03/04/2025 6:19 AM [facility] Creatinine 0.58 0.50 - 1.10 mg/dL LAB CHEMISTRY METHOD 03/04/2025 6:19 AM [facility] eGFR 104 >=60 mL/min/1. 73m2 LAB CHEMISTRY METHOD 03/04/2025 6:19 AM [facility] Comment:Calculation based on the Chronic Kidney Disease Epidemiology Collaboration (CKD-EPI) equation refit without adjustment for race. BUN/Creatinine Ratio 19.0 LAB CHEMISTRY METHOD 03/04/2025 6:19 AM [facility] Calcium 9.5 8.5 - 10.5 mg/dL LAB CHEMISTRY METHOD 03/04/2025 6:19 AM [facility] Blood Venous blood specimen / Unknown Venipuncture / Unknown 03/04/2025 5:39 AM EDT 03/04/2025 5:43 AM EDT us Saeed Mariee MD LAB BLOOD ORDERABLES Final Result [facility] [address] [place] [address], * CT Angio Abdomen Pelvis wo and/or [...] ABO Group A 03/03/2025 8:37 PM EDT [facility] Rh Type Positive 03/03/2025 8:37 PM EDT [facility] Antibody Screen Negative 03/03/2025 8:37 PM EDT [facility] Blood Venous blood specimen / Unknown Venipuncture / Unknown 03/03/2025 7:38 PM EDT 03/03/2025 7:59 PM EDT us Serina Lyons DO LAB BLOOD BANK TEST ORDER SHAHZAD Final Result [facility] ([facility]) [facility] [address] [place] [address], [place] [phone] * COLONOSCOPY Anesthesia - MAC; [facility] ENDOSCOPY (03/03/2025 10:15 AM EDT) [...] need surgery Narrative 03/03/2025 10:09 AM EDT [facility] Patient Name: Alpesh Macias Procedure [...] retroflexion views. Procedure Code(s): --- Professional --- 40872, Colonoscopy, flexible; with removal of tumor(s), polyp(s), or other lesion(s) by snare technique 01640, 59, Colonoscopy, flexible; with biopsy, single or multiple Diagnosis Code(s): --- Professional --- K92.2, Gastrointestinal hemorrhage, unspecified D12.5, Benign neoplasm of sigmoid colon D50.0, Iron deficiency anemia secondary to blood loss (chronic) CPT copyright 2020 [employer]. All rights reserved. The codes documented in this report are preliminary and upon core microarchitect review may be revised to meet current compliance requirements. Tenzin Paula MD 03/03/2025 10:09:14 AM This report has been signed electronically.Tenzin Paula MD Number of Addenda: 0 Note Initiated On: 03/03/2025 8:46 AM Scope In: Scope Out: Endoscopy Department at [facility] - [address] [place] [phone] Procedure Note Tenzin Paula MD - 03/03/2025 [facility] Patient Name: Alpesh Macias Procedure [...] retroflexion views. 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 All rights reserved. The codes documented in this report are preliminary and upon core microarchitect reviewmay be revised to meet current compliance requirements. Tenzin Paula MD 03/03/2025 10:09:14 AM This report has been signed electronically.Tenzin Paula MD Number of Addenda: 0 Note Initiated On: 03/03/2025 8:46 AM Scope In: Scope Out: Endoscopy Department at [facility] - [address] [place] [phone] IMPRESSION: - Blood in the recto-sigmoid colon. [...] al Result * EGD Anesthesia - MAC; [facility] ENDOSCOPY (03/03/2025 10:15 AM EDT) Anatomical Region Laterality Modality Endoscopy 03/03/2025 10:0 9 AM EDT Impressions 03/03/2025 10:14 AM EDT - Normal esophagus. - Normal stomach. - Normal examined duodenum. Biopsied. Recommendation: - Await pathology results. Narrative 03/03/2025 10:14 AM EDT [facility] Patient Name: Alpesh Macias Procedure [...] for histology. Procedure Code(s): --- Professional --- 00394, Esophagogastroduodenoscopy, flexible, transoral; with biopsy, single or multiple Diagnosis Code(s): --- Professional --- D50.0, Iron deficiency anemia secondary to blood loss (chronic) CPT copyright 2020 [employer]. All rights reserved. The codes documented in this report are preliminary and upon core microarchitect review may be revised to meet current compliance requirements. Tenzin Paula MD 03/03/2025 10:14:33 AM This report has been signed electronically.Tenzin Paula MD Number of Addenda: 0 Note Initiated On: 03/03/2025 10:09 AM Scope In: Scope Out: Endoscopy Department at [facility] - [address] [place] [phone] Procedure Note Tenzin Paula MD - 03/03/2025 [facility] GI Patient Name: Alpesh Macias Procedure [...] for histology. 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 All rights reserved. The codes documented in this report are preliminary and upon core microarchitect reviewmay be revised to meet current compliance requirements. Tenzin Paula MD 03/03/2025 10:14:33 AM This report has been signed electronically.Tenzin Paula MD Number of Addenda: 0 Note Initiated On: 03/03/2025 10:09 AM Scope In: Scope Out: Endoscopy Department at [facility] - [address] [place] [phone] IMPRESSION: - Normal esophagus. - Normal stomach. [...] currently active code status orders. Care Teams Production Analyst Relationship Specialty Start Date End Date Raquel Jennings NP PCP - General Gastroenterology 04/16/25
== END 2025-05-10 12:24 | disposition home or self-care (01) ==
LOC: HO.HKAS 11:18
PROVIDERS: PCP Nurse Practitioner Family; Referring Provider Nurse Practitioner Family; Visit Provider Internal Medicine Critical Care Medicine
DX: I10 Essential (primary) hypertension (principal); N28.1 Cyst of kidney, acquired; N20.0 Calculus of kidney
CPT/HCPCS: 99204